=== PATIENT | female | born 1940 | race Caucasian/White ===

== ENCOUNTER 2017-05-08 06:19 | Day surgery (SDC) | payer MEDICARE, BC ==
[2017-05-04 16:16] VITALS: BMI 26.7
[~2017-05-08 06:19] MED LIST: DEXAMETHASONE SOD PHOSPHATE 10 MG/ML 1 ML VIAL IV ONE; HEPARIN SODIUM,PORCINE 5,000 UNIT/ML 1 ML VIAL SQ ONE; LACTATED RINGERS 1,000 ML IV SCH; MIDAZOLAM 2 MG/2 ML VIAL IV PRN; MORPHINE SULFATE 4 MG/ML SYRINGE IV PRN; ONDANSETRON 4 MG/2 ML VIAL IVP ONE
[2017-05-08] MEDS ORDERED: INDOCYANINE GREEN 25 MG VIAL IV STA (06:33)
[2017-05-08 07:18] LABS: Basophils % (A) 0 %; Eosinophils # (A) 0.2 k/uL (0-0.7); Eosinophils % (A) 2 %; HGB 13.6 gm/dL (11.4-16.0); Lymphocytes % (A) 24 %; MCH 29.4 pg (25.0-35.0); MCHC 31.5 g/dL (31.0-37.0); MCV 93.2 fL (80.0-100.0); Mean Platelet Volume 7.4; Monocytes # (A) 0.5 k/uL (0-1.0); Monocytes % (A) 5 %; Neutrophils # (A) 5.7 k/uL (1.3-7.7); Neutrophils % (A) 68 %; Platelet Count 341 k/uL (150-450); RBC 4.62 m/uL (3.80-5.40); RDW 12.3 % (11.5-15.5); WBC 8.4 k/uL (3.8-10.6)
[2017-05-08 07:31] LABS: ALT 17 U/L (9-52); AST 15 U/L (14-36); Alkaline Phosphatase 92 U/L (38-126); Anion Gap 10 mmol/L; Blood Urea Nitrogen 10 mg/dL (7-17); Calcium 9.8 mg/dL (8.4-10.2); Carbon Dioxide 25 mmol/L (22-30); Chloride 108 mmol/L (98-107); Glucose 96 mg/dL (74-99); Potassium 4.6 mmol/L (3.5-5.1); Sodium 143 mmol/L (137-145); Total Bilirubin 0.4 mg/dL (0.2-1.3); Total Protein 6.8 g/dL (6.3-8.2)
--- NOTE | 2017-05-08 07:32 | P.GSHP ---
History of Present Illness H&P Date: 05/08/17 CHIEF COMPLAINT: Cholecystitis HISTORY OF PRESENT ILLNESS: The patient is a 77-year-old female who presents with history of epigastric including right upper quadrant abdominal pain. She underwent diagnostic studies for her gallbladder. Separately her clinical picture was consistent with cholecystitis. Now she presents for surgical intervention. PAST MEDICAL HISTORY: Please see list PAST SURGICAL HISTORY: Please see list MEDICATIONS: Please see list ALLERGIES: Denies. SOCIAL HISTORY: No illicit drug use or recent tobacco use FAMILY HISTORY: Pertinent for gallbladder disease REVIEW OF ORGAN SYSTEMS: CONSTITUTIONAL: No reports of fevers or chills. HEENT: Denies any troubles with the vision or hearing. PHYSICAL EXAM: VITAL SIGNS: Afebrile vital signs stable GENERAL: Well-developed pleasant in no acute distress. HEENT: No scleral icterus. Extraocular movements grossly intact. Moist buccal mucosa. NECK: Supple without lymphadenopathy. CHEST: Unlabored respirations. Equal bilateral excursions. CARDIOVASCULAR: Regular rate regular rhythm rhythm. Distal 2+ pulses. ABDOMEN: Soft, nondistended. Tender along the epigastrium and right upper quadrant. MUSCULOSKELETAL: No clubbing, cyanosis, or edema. NEURO: Cranial nerves II to XII within normal limits. No focal or lateralizing signs. PSYCH: Alert and oriented to person, place and time. ASSESSMENT: 1. Epigastric and right upper quadrant abdominal pain 2. Chronic cholecystitis 3. Symptomatic gallstones. PLAN: 1. Will need a robotic laparoscopic cholecystectomy possible open. Benefits and risks were described. 2. Heparin for DVT prophylaxis 5000 units. 3. Antibiotic prophylaxis. Past Medical History Past Medical History: Hypertension History of Any Multi-Drug Resistant Organisms: None Reported Past Surgical History: Hysterectomy, Orthopedic Surgery Additional Past Surgical History / Comment(s): knee arthroscopy; ovarian cyst removed; bilat. big toenails removed Past Anesthesia/Blood Transfusion Reactions: No Reported Reaction Smoking Status: Current every day smoker - Past Family History Sister(s) Family Medical History: Cancer Additional Family Medical History / Comment(s): breast Medications and Allergies Home Medications Medication Instructions Recorded Confirmed Type Calcium Carbonate [Calcium] 600 mg PO DAILY 05/04/17 05/04/17 History Cetirizine HCl [Zyrtec ODT] 10 mg PO DAILY PRN 05/04/17 05/04/17 History Cholecalciferol (Vitamin D3) 2,000 unit PO DAILY 05/04/17 05/04/17 History [Vitamin D3] Cyanocobalamin (Vitamin B-12) 2,000 mcg PO DAILY 05/04/17 05/04/17 History [Vitamin B-12] Lisinopril [Zestril] 5 mg PO DAILY 05/04/17 05/04/17 History Multivitamins, Thera [Multivitamin 1 tab PO DAILY 05/04/17 05/04/17 History (formulary)] Albuterol Nebulized [Ventolin 2.5 mg INHALATION Q6H PRN 05/05/17 05/05/17 History Nebulized] Allergies Allergy/AdvReac Type Severity Reaction Status Date / Time amoxicillin Allergy thrush Verified 05/04/17 16:02 Penicillins Allergy redness Verified 05/04/17 16:08 Results - Labs 05/08/17 06:40
[2017-05-08] MEDS ORDERED: fentaNYL (PF) 50 MCG/ML 2 ML AMP ONE (07:36)
[2017-05-08] MEDS ORDERED: KETOROLAC 30 MG/ML 1 ML VIAL ONE (07:36)
[2017-05-08] MEDS ORDERED: NEOSTIGMINE 1 MG/ML 10 ML VIAL ONE (07:36)
[2017-05-08] MEDS ORDERED: LIDOCAINE 1% INJ 10MG/ML (20 ML MDV) ONE (07:36)
[2017-05-08] MEDS ORDERED: MIDAZOLAM 2 MG/2 ML VIAL ONE (07:36)
[2017-05-08] MEDS ORDERED: GLYCOPYRROLATE 0.2 MG/ML 2 ML VIAL ONE (07:36)
[2017-05-08] MEDS ORDERED: ROCURONIUM BROMIDE 10 MG/ML 10 ML VIAL IV ONE (07:36)
[2017-05-08] MEDS ORDERED: PROPOFOL 10 MG/ML 20 ML VIAL IV ONE (07:36)
[2017-05-08] MEDS ORDERED: PHENYLEPHRINE-0.9% NACL SYG 1 MG/10 ML SYRINGE ONE (07:36)
[2017-05-08] MEDS ORDERED: SUCCINYLCHOLINE CHLORIDE 100 MG/5 ML SYR IV ONE (07:36)
[2017-05-08] MEDS: ceFAZolin IN SWFI 2 GM/20 ML SYRINGE IVP ONE ×2 (07:40→08:11)
[2017-05-08] MEDS ORDERED: BUPIVACAINE (PF) 0.5% 30 ML VIAL SQ ONE ×2 (08:10→08:53)
[2017-05-08] MEDS ORDERED: LACTATED RINGERS 1,000 ML IV ONE ×2 (08:38→13:19)
--- NOTE | 2017-05-08 09:24 | P.PN ---
Subjective Progress Note Date: 05/08/17 SURGEON: VICKI COELLO MD INDUSTRIAL EDUCATION TEACHER: 1. Matilde Clements 2. Maria Isabel Borges PREOPERATIVE DIAGNOSES: 1. Gallstones pancreatitis. 2. COPD. 3. Epigastric abdominal pain. 4. Gastroesophageal reflux disease. 5. Tobacco abuse. 6. Essential hypertension. POSTOPERATIVE DIAGNOSES: 1. Gallstones pancreatitis. 2. COPD. 3. Epigastric abdominal pain. 4. Gastroesophageal reflux disease. 5. Tobacco abuse. 6. Essential hypertension. 7. Peritoneal adhesions small bowel to the abdominal wall lower pelvis from previous abdominal surgery. OPERATION: Robotic-assisted laparoscopic cholecystectomy, multiport ESTIMATED BLOOD LOSS: 2 mL. SPECIMENS REMOVED: Gallbladder. COMPLICATIONS: None. OPERATIVE FINDINGS: 1. Chronic cholecystitis. 2. Moderate peritoneal adhesions small bowel to the abdominal wall from previous open abdominal surgery. INDICATIONS: The patient is a 77-year-old female who presents with gallstone pancreatitis, symptomatic gallstones and chronic cholelcystitis. Surgical intervention with a laparoscopic cholecystectomy was described at length including injury to the biliary tree, bleeding, infection, need for further surgery. Informed consent was obtained. Robotic assisted laparoscopic approach was described. Benefits and risks of the procedure including but not limited to bleeding, infection, injury to the biliary tree was described. Informed consent was obtained. DESCRIPTION OF PROCEDURE: Patient was brought to the operating room, placed in supine position. After general induction, the abdomen had been prepped and draped in standard sterile fashion. The robotic da Laan SI system was primed. After a timeout protocol was performed, the patient had been prepped and draped in standard sterile fashion. The robot was docked along the right lateral abdomen. The patient was repositioned in reverse Trendelenburg position. Please note prior to docking of the robot; however, a 5 mm 0 degrees laparoscopic trocar entry was performed along the left upper quadrant. Next, two 8 mm robotic ports were placed along the right upper abdomen. The camera 12-mm port was maintained along the epigastrium. Another 8 mm port was placed along the left upper abdominal wall after exchanging the 5 mm port. Please note that the ports were placed at least 10 to 15 cm away from the target anatomy of the gallbladder. Using a grasper for arm 3, a grasper for arm 2, including hook cautery for arm 1 , the robotic system was docked and primed as described. Instruments were interchanged by the assistant principal including hook cautery, Bovie cautery scissors and clip appliers. I had sat at the console. Adhesions were identified along the infundibulum of the gallbladder and addressed using hook cautery. The gallbladder fundus was retracted over the dome of the liver. Initial attention was brought to the infundibulum which was gently retracted in the inferior lateral approach. Using a grasper, the cystic duct including the cystic artery was carefully skeletonized. Using a PLASTIC clip bakeshop cleaner, 2 large clips were placed proximally, and 1 clip was placed distally along the cystic duct and then cauterized with the cautery. Again care was taken to avoid any injury to the biliary tree as the common bile duct was clearly visualized during this portion of dissection. Next, the cystic artery was cauterized. Electro-Bovie cautery was used to remove the gallbladder from the hepatic fossa without decompression of the gallbladder. Hemostasis was checked and found to be adequate. The robot was undocked. I re-scrubbed into the case. Using a 10 mm Endo Catch bag via the left upper quadrant, the specimen was removed from the abdominal cavity. The fascial defects were less than 8 mm in size. All pneumoperitoneum instruments were evacuated from the abdominal cavity. The incisions were reapproximated using 4-0 Monocryl in an interrupted subcuticular fashion. Please note along the trocar sites, local anesthetic was placed as a field block prior to insertion of all instruments. Dilute hydrogen peroxide was used to wash the skin. Dermabond was applied to the skin. At the end of the procedure needle, sponge, and instrument count had been verified correct by the automation engineering technician. The patient was transferred to postanesthesia care unit in stable condition. Intraoperative films were shared with the patient's family who were very pleased with the level of care. Objective - Vital Signs Vital signs: Vital Signs Temp 98.3 F 05/08/17 06:55 Pulse 90 05/08/17 06:55 Resp 18 05/08/17 06:55 BP 103/63 05/08/17 06:55 Pulse Ox 94 L 05/08/17 06:55 Intake & Output 05/07/17 05/08/17 05/08/17 18:59 06:59 18:59 Intake Total 1500 Output Total 2 Balance 1498 Intake: IV 1500 Output: Estimated Blood Loss 2 - Labs CBC & Chem 7: 05/08/17 06:40 05/08/17 06:40 Labs: Abnormal Lab Results - Last 24 Hours (Table) 05/08/17 Range/Units 06:40 Chloride 108 H (98-107) mmol/L
[2017-05-08 09:28] VITALS: TEMP 97.7
[2017-05-08 09:32] VITALS: RESP 16
--- NOTE | 2017-05-08 09:32 | P.OP ---
Date of Procedure: 05/08/17 Description of Procedure: SURGEON: VICKI MATA MD ACUPUNCTURE PHYSICIAN: 1. Matilde Clements 2. Maria Isabel Borges PREOPERATIVE DIAGNOSES: 1. Gallstones pancreatitis. 2. COPD. 3. Epigastric abdominal pain. 4. Gastroesophageal reflux disease. 5. Tobacco abuse. 6. Essential hypertension. POSTOPERATIVE DIAGNOSES: 1. Gallstones pancreatitis. 2. COPD. 3. Epigastric abdominal pain. 4. Gastroesophageal reflux disease. 5. Tobacco abuse. 6. Essential hypertension. 7. Peritoneal adhesions small bowel to the abdominal wall lower pelvis from previous abdominal surgery. OPERATION: Robotic-assisted laparoscopic cholecystectomy, multiport ESTIMATED BLOOD LOSS: 2 mL. SPECIMENS REMOVED: Gallbladder. COMPLICATIONS: None. OPERATIVE FINDINGS: 1. Chronic cholecystitis. 2. Moderate peritoneal adhesions small bowel to the abdominal wall from previous open abdominal surgery. INDICATIONS: The patient is a 77-year-old female who presents with gallstone pancreatitis, symptomatic gallstones and chronic cholelcystitis. Surgical intervention with a laparoscopic cholecystectomy was described at length including injury to the biliary tree, bleeding, infection, need for further surgery. Informed consent was obtained. Robotic assisted laparoscopic approach was described. Benefits and risks of the procedure including but not limited to bleeding, infection, injury to the biliary tree was described. Informed consent was obtained. DESCRIPTION OF PROCEDURE: Patient was brought to the operating room, placed in supine position. After general induction, the abdomen had been prepped and draped in standard sterile fashion. The robotic da Alan SI system was primed. After a timeout protocol was performed, the patient had been prepped and draped in standard sterile fashion. The robot was docked along the right lateral abdomen. The patient was repositioned in reverse Trendelenburg position. Please note prior to docking of the robot; however, a 5 mm 0 degrees laparoscopic trocar entry was performed along the left upper quadrant. Next, two 8 mm robotic ports were placed along the right upper abdomen. The camera 12-mm port was maintained along the epigastrium. Another 8 mm port was placed along the left upper abdominal wall after exchanging the 5 mm port. Please note that the ports were placed at least 10 to 15 cm away from the target anatomy of the gallbladder. Using a grasper for arm 3, a grasper for arm 2, including hook cautery for arm 1 , the robotic system was docked and primed as described. Instruments were interchanged by the clinical nursing assistant including hook cautery, Bovie cautery scissors and clip appliers. I had sat at the console. Adhesions were identified along the infundibulum of the gallbladder and addressed using hook cautery. The gallbladder fundus was retracted over the dome of the liver. Initial attention was brought to the infundibulum which was gently retracted in the inferior lateral approach. Using a grasper, the cystic duct including the cystic artery was carefully skeletonized. Using a PLASTIC clip assignment agent, 2 large clips were placed proximally, and 1 clip was placed distally along the cystic duct and then cauterized with the cautery. Again care was taken to avoid any injury to the biliary tree as the common bile duct was clearly visualized during this portion of dissection. Next, the cystic artery was cauterized. Electro-Bovie cautery was used to remove the gallbladder from the hepatic fossa without decompression of the gallbladder. Hemostasis was checked and found to be adequate. The robot was undocked. I re-scrubbed into the case. Using a 10 mm Endo Catch bag via the left upper quadrant, the specimen was removed from the abdominal cavity. The fascial defects were less than 8 mm in size. All pneumoperitoneum instruments were evacuated from the abdominal cavity. The incisions were reapproximated using 4-0 Monocryl in an interrupted subcuticular fashion. Please note along the trocar sites, local anesthetic was placed as a field block prior to insertion of all instruments. Dilute hydrogen peroxide was used to wash the skin. Dermabond was applied to the skin. At the end of the procedure needle, sponge, and instrument count had been verified correct by the digital technician. The patient was transferred to postanesthesia care unit in stable condition. Intraoperative films were shared with the patient's family who were very pleased with the level of care. Plan - Discharge Summary Discharge Rx Participant: Yes New Discharge Prescriptions: New Ibuprofen [Motrin] 600 mg PO Q8HR PRN #30 tab PRN Reason: Pain HYDROcodone/APAP 5-325MG [[place] 5-325] 1 tab PO Q6HR PRN #15 tab PRN Reason: Pain Continue Multivitamins, Thera [Multivitamin (formulary)] 1 tab PO DAILY Lisinopril [Zestril] 5 mg PO DAILY Cyanocobalamin (Vitamin B-12) [Vitamin B-12] 2,000 mcg PO DAILY Cholecalciferol (Vitamin D3) [Vitamin D3] 2,000 unit PO DAILY Cetirizine HCl [Zyrtec ODT] 10 mg PO DAILY PRN PRN Reason: Allergy Symptoms Calcium Carbonate [Calcium] 600 mg PO DAILY Albuterol Nebulized [Ventolin Nebulized] 2.5 mg INHALATION Q6H PRN PRN Reason: Shortness Of Breath Discharge Medication List Calcium Carbonate [Calcium] 600 mg PO DAILY 05/04/17 [History] Cetirizine HCl [Zyrtec ODT] 10 mg PO DAILY PRN 05/04/17 [History] Cholecalciferol (Vitamin D3) [Vitamin D3] 2,000 unit PO DAILY 05/04/17 [History] Cyanocobalamin (Vitamin B-12) [Vitamin B-12] 2,000 mcg PO DAILY 05/04/17 [ History] Lisinopril [Zestril] 5 mg PO DAILY 05/04/17 [History] Multivitamins, Thera [Multivitamin (formulary)] 1 tab PO DAILY 05/04/17 [History ] Albuterol Nebulized [Ventolin Nebulized] 2.5 mg INHALATION Q6H PRN 05/05/17 [ History] HYDROcodone/APAP 5-325MG [[place] 5-325] 1 tab PO Q6HR PRN #15 tab 05/08/17 [Rx] Ibuprofen [Motrin] 600 mg PO Q8HR PRN #30 tab 05/08/17 [Rx] Follow up Appointment(s)/Referral(s): Vicki Mata MD [STAFF PHYSICIAN] - 05/12/17 ([facility]) Patient Instructions/Handouts: Laparoscopic Cholecystectomy (DC) Activity/Diet/Wound Care/Special Instructions: Low fat diet. No lifting over 4 pounds in 1 week. May shower. No bathtub soaks. Discharge Disposition: HOME SELF-CARE
[2017-05-08 14:13] VITALS: BP 154/83; PULSE 75
== END 2017-05-08 14:33 | disposition home or self-care (01) ==
LOC: OR 06:19
PROVIDERS: ATTEND Surgery Plastic and Reconstructive Surgery
DX: K80.10 Calculus of gallbladder with chronic cholecystitis without obstruction (principal); K66.0 Peritoneal adhesions (postprocedural) (postinfection); K85.10 Biliary acute pancreatitis without necrosis or infection; J44.9 Chronic obstructive pulmonary disease, unspecified; K21.9 Gastro-esophageal reflux disease without esophagitis; I10 Essential (primary) hypertension; F17.200 Nicotine dependence, unspecified, uncomplicated; Z79.899 Other long term (current) drug therapy; Z88.0 Allergy status to penicillin
CPT/HCPCS: 47562; 86900; 86901; 88304; 80053; 85025; 86850; J2250; J1644; J1100; J2710; J2405; J2001; J3010; J1885; J2370; J0330; J2704; J0690

== ENCOUNTER → 2017-07-31 | Outpatient (CLI) | payer MEDICARE, BC | END | disposition home or self-care (01) | LOC: LABWHC1 09:00 | PROVIDERS: ATTEND Anesthesiology | DX: Z01.812 Encounter for preprocedural laboratory examination (principal) | CPT/HCPCS: 36415; 86850; 86900; 86901 ==

== ENCOUNTER → 2017-08-07 | Day surgery (SDC) | payer MEDICARE, BC ==
[2017-07-29 13:05] VITALS: BMI 25.9
[~2017-08-07] MED LIST changes: +ETOMIDATE 2 MG/ML 10 ML VIAL ONE; +GLYCOPYRROLATE 0.2 MG/ML 2 ML VIAL ONE; +HYDROcodone/APAP 5-325MG 1 EACH TAB PO ONE; +LACTATED RINGERS 1,000 ML IV ONE; +LIDOCAINE 1% 20 ML VIAL (10MG/ML) FOR IV START INTRADERMA ONE; +LIDOCAINE 1% INJ 10MG/ML (20 ML MDV) ONE; +METOCLOPRAMIDE 5 MG/ML 2 ML VIAL IVP ONE; -MORPHINE SULFATE 4 MG/ML SYRINGE IV PRN; +NEOSTIGMINE 1 MG/ML 10 ML VIAL ONE; +ROCURONIUM BROMIDE 10 MG/ML 10 ML VIAL IV ONE; +ROPIVACAINE 5 MG/ML 30 ML VIAL MISCELLANE ONE; +ROPIVACAINE 5 MG/ML 30 ML VIAL ONE; +SUCCINYLCHOLINE CHLORIDE 100 MG/5 ML SYR IV ONE; +ceFAZolin IN SWFI 2 GM/20 ML SYRINGE IVP ONE; +ePHEDrine SULFATE/0.9% NACL/PF 50 MG/5 ML SYRINGE IV ONE
--- NOTE | 2017-08-07 07:03 | P.GSHP ---
History of Present Illness H&P Date: 08/07/17 CHIEF COMPLAINT: Incisional hernia. HISTORY OF PRESENT ILLNESS: The patient is a 77-year-old female who presents with a history of swelling along the lower abdomen. Findings were consistent with incisional hernia is found on computed tomography scan. Now she presents for further evaluation and management. PAST MEDICAL HISTORY: Please see list. PAST SURGICAL HISTORY: Please see list. MEDICATIONS: Please see list. ALLERGIES: Please see list. SOCIAL HISTORY: No illicit drug use FAMILY HISTORY: No reports of Crohn disease or ulcerative colitis. REVIEW OF ORGAN SYSTEMS: CONSTITUTIONAL: No reports of fevers or chills. PHYSICAL EXAM: VITAL SIGNS: Stable GENERAL: Well-developed pleasant female in no acute distress. HEENT: No scleral icterus. Extraocular movements grossly intact. Moist buccal mucosa. NECK: Supple without lymphadenopathy. CHEST: Unlabored respirations. Equal bilateral excursions. CARDIOVASCULAR: Regular rate and rhythm. Distal 2+ pulses. ABDOMEN: Soft, nondistended. Palpable defect along the right abdomen lateral to the umbilicus. MUSCULOSKELETAL: No clubbing, cyanosis, or edema. ASSESSMENT: 1. Incisional ventral hernia. 2. COPD PLAN: 1. Recommend proceeding with robotic ventral hernia repair with mesh. 2. Benefits and risks of surgical intervention was discussed including possibility of open technique. 3. DVT prophylaxis. 4. Antibiotic prophylaxis. 5. Recommend abdominal wall block Past Medical History Past Medical History: COPD, Hypertension, Osteoarthritis (OA) History of Any Multi-Drug Resistant Organisms: None Reported Past Surgical History: Cholecystectomy, Hysterectomy, Orthopedic Surgery Additional Past Surgical History / Comment(s): knee arthroscopy; ovarian cyst removed; bilat. big toenails removed Past Anesthesia/Blood Transfusion Reactions: No Reported Reaction Smoking Status: Current every day smoker - Past Family History Sister(s) Family Medical History: Cancer Additional Family Medical History / Comment(s): breast Medications and Allergies Home Medications Medication Instructions Recorded Confirmed Type Calcium Carbonate [Calcium] 600 mg PO DAILY 05/04/17 08/07/17 History Cetirizine HCl [Zyrtec ODT] 10 mg PO DAILY PRN 05/04/17 08/07/17 History Cholecalciferol (Vitamin D3) 2,000 unit PO DAILY 05/04/17 08/07/17 History [Vitamin D3] Cyanocobalamin (Vitamin B-12) 2,000 mcg PO DAILY 05/04/17 08/07/17 History [Vitamin B-12] Lisinopril [Zestril] 5 mg PO DAILY 05/04/17 08/07/17 History Multivitamins, Thera [Multivitamin 1 tab PO DAILY 05/04/17 08/07/17 History (formulary)] Albuterol Nebulized [Ventolin 2.5 mg INHALATION Q6H PRN 05/05/17 08/07/17 History Nebulized] Polyethylene Glycol 3350 [Miralax] 17 gm PO DAILY PRN 07/29/17 08/07/17 History Allergies Allergy/AdvReac Type Severity Reaction Status Date / Time amoxicillin Allergy thrush Verified 08/07/17 06:13 Penicillins Allergy redness Verified 08/07/17 06:13 Surgical - Exam Vital Signs Temp Pulse Resp BP Pulse Ox 97 F L 93 16 100/57 94 L 08/07/17 06:30 08/07/17 06:30 08/07/17 06:30 08/07/17 06:30 08/07/17 06:30
[2017-08-07] MEDS: fentaNYL (PF) 50 MCG/ML 2 ML AMP IV PRN ×4 (07:10→11:01)
--- NOTE | 2017-08-07 07:44 | P.ONQ ---
Anesthesiology Proc Note - PNB - Peripheral Nerve Block Performed Left Transversus Abdominis Single Time Out Performed: Yes Procedure Start Time: :07 Procedure Stop Time: :12 Indication: Analgesia, Requested by physician Specifically requested for management of pain by DrAlex: Nishi Mata Sedation Type: Sedate with meaningful contact maintained Preparation: Sterile Prep Position: Supine Needle Types: Other (see comment) Needle Size: 100mm (4") (PUJUNK) Needle Gauge: 20 Technique: Ultrasound Injectate: 0.5% Ropivacaine (see comment for volume) (15 ml) Blood Aspirated: No Pain Paresthesia on Injection Noted: No Events: Uneventful and Well Tolerated
--- NOTE | 2017-08-07 07:46 | P.ONQ ---
Anesthesiology Proc Note - PNB - Peripheral Nerve Block Performed Right Transversus Abdominis Single Time Out Performed: Yes Procedure Start Time: 07:12 Procedure Stop Time: 07:15 Indication: Analgesia Specifically requested for management of pain by DrAlex: Nishi Mata Sedation Type: Sedate with meaningful contact maintained Preparation: Sterile Prep Position: Supine Needle Types: Other (see comment) Needle Size: 100mm (4") Needle Gauge: 20 Technique: Ultrasound (PUJUNK) Injectate: 0.5% Ropivacaine (see comment for volume) (15 ml) Blood Aspirated: No Pain Paresthesia on Injection Noted: No Resistance on Injection: Normal Events: Uneventful and Well Tolerated
--- NOTE | 2017-08-07 10:22 | P.PCN ---
Date of Procedure: 08/07/17 Preoperative Diagnosis: Incarcerated incisional hernia Postoperative Diagnosis: Incarcerated incisional hernia 10 x 10 cm left mid abdomen, severe intra- abdominal adhesions with intraloop adhesions, small bowel to abdominal wall Procedure(s) Performed: Robotic-assisted extensive lysis of adhesions over 1.5 hours, robotic-assisted incarcerated incisional ventral hernia repair with 11.[address] mesh Anesthesia: GETA, local Surgeon: Nishi Mata Manager Re[facility] #1: James Hemphill Estimated Blood Loss (ml): 5 Pathology: none sent Condition: stable Disposition: same day Operative Findings: 1. Severe intra-abdominal adhesions including intraloop adhesions and abdominal wall adhesions addressed over 1.5 hours robotic-assisted lysis of adhesions 2. No enterotomies throughout the case. 3. Incarcerated incisional hernia involving small bowel loop reduced without injury 4. Defect of 10 x 10 cm left lower abdomen to mid abdomen 5. Defect reduced with pursestring suture down to 5 cm 6. Mesh placement performed 7. Console time 121 minutes
[2017-08-07 10:38] VITALS: TEMP 98.2
[2017-08-07 13:11] VITALS: RESP 18
[2017-08-07 13:36] VITALS: BP 100/65; PULSE 68
== END | disposition home or self-care (01) ==
LOC: OR 05:46
PROVIDERS: ATTEND Surgery Plastic and Reconstructive Surgery
DX: K43.0 Incisional hernia with obstruction, without gangrene (principal); K66.0 Peritoneal adhesions (postprocedural) (postinfection); J44.9 Chronic obstructive pulmonary disease, unspecified; I10 Essential (primary) hypertension; M19.90 Unspecified osteoarthritis, unspecified site; F41.9 Anxiety disorder, unspecified; F32.9 Major depressive disorder, single episode, unspecified; Z79.899 Other long term (current) drug therapy; Z88.0 Allergy status to penicillin; Z88.1 Allergy status to other antibiotic agents; F17.210 Nicotine dependence, cigarettes, uncomplicated
CPT/HCPCS: 49655; 64486; C1781; J2250; J1644; J1100; J2710; J2765; J2405; J2001; J3010; J2795; J0330; J0690; 36415; 86850; 86900; 86901

== ENCOUNTER 2017-11-19 01:08 | Inpatient (IN) | payer MEDICARE, BC ==
[2017-11-19] MEDS ORDERED: NALOXONE 0.4 MG/ML 1 ML VIAL IV PRN (03:12)
[2017-11-19] MEDS ORDERED: ACETAMINOPHEN TAB 325 MG TAB PO PRN (03:12)
[2017-11-19] MEDS ORDERED: ONDANSETRON 4 MG/2 ML VIAL IVP PRN (03:12)
[2017-11-19] MEDS: SODIUM CHLORIDE 0.9% 1,000 ML IV SCH ×3 (03:19→17:56)
--- NOTE | 2017-11-19 03:33 | ED ---
Abdominal Pain HPI - General Chief Complaint: Abdominal Pain Stated Complaint: Abd pain Time Seen by Provider: 11/19/17 02:02 Source: EMS Mode of arrival: EMS Limitations: no limitations - Related Data Home Medications Medication Instructions Recorded Confirmed Calcium Carbonate [Calcium] 600 mg PO DAILY 05/04/17 08/07/17 Cetirizine HCl [Zyrtec ODT] 10 mg PO DAILY PRN 05/04/17 08/07/17 Cholecalciferol (Vitamin D3) 2,000 unit PO DAILY 05/04/17 08/07/17 [Vitamin D3] Cyanocobalamin (Vitamin B-12) 2,000 mcg PO DAILY 05/04/17 08/07/17 [Vitamin B-12] Lisinopril [Zestril] 5 mg PO DAILY 05/04/17 08/07/17 Multivitamins, Thera [Multivitamin 1 tab PO DAILY 05/04/17 08/07/17 (formulary)] Albuterol Nebulized [Ventolin 2.5 mg INHALATION Q6H PRN 05/05/17 08/07/17 Nebulized] Polyethylene Glycol 3350 [Miralax] 17 gm PO DAILY PRN 07/29/17 08/07/17 Previous Rx's Medication Instructions Recorded HYDROcodone/APAP 5-325MG [[place] 1 tab PO Q4HR PRN 3 Days #18 tab 08/07/17 5-325] Allergies Allergy/AdvReac Type Severity Reaction Status Date / Time amoxicillin Allergy thrush Verified 11/19/17 01:19 azithromycin Allergy Unknown Verified 11/19/17 01:19 [From Zithromax Z-Vadim] Penicillins Allergy redness Verified 11/19/17 01:19 Review of Systems ROS Statement: Those systems with pertinent positive or pertinent negative responses have been documented in the HPI. ROS Other: All systems not noted in ROS Statement are negative. Past Medical History Past Medical History: COPD, Hypertension, Osteoarthritis (OA) History of Any Multi-Drug Resistant Organisms: None Reported Past Surgical History: Cholecystectomy, Hysterectomy, Orthopedic Surgery Additional Past Surgical History / Comment(s): knee arthroscopy; ovarian cyst removed; bilat. big toenails removed Past Anesthesia/Blood Transfusion Reactions: No Reported Reaction Past Psychological History: Anxiety, Depression Smoking Status: Current every day smoker Past Alcohol Use History: None Reported Past Drug Use History: None Reported - Past Family History Sister(s) Family Medical History: Cancer Additional Family Medical History / Comment(s): breast General Exam Limitations: no limitations Course Vital Signs 11/19/17 01:12 Temperature 98.0 F Pulse Rate 94 Respiratory 18 Rate Blood Pressure 122/70 O2 Sat by Pulse 96 Oximetry Disposition Clinical Impression: Abdominal pain, Vomiting, Ileus Disposition: ADMITTED IP TO THIS [facility] Condition: Fair Referrals: Florin Angulo MD [Primary Care Provider] - 1-2 days
[2017-11-19] MEDS: LISINOPRIL 5 MG TAB PO SCH (13:21)
--- NOTE | 2017-11-19 13:29 | P.GSCN ---
History of Present Illness Consult date: 11/19/17 Reason for Consult: Abdominal pain History of present illness: 77-year-old female known to Dr. Mata service was transferred from [facility] to [facility] to be evaluated for abdominal pain with vomiting and abdominal bloating. Patient stated that she was in her usual state of health when yesterday morning she had a large bowel movement later that afternoon ate fish around 3:30 after eating the fish noted that she was bloated around 8:00 at night and vomited the bloating persist had 3 small hard stools. Abdomen became distended and firm. Became concerned when consult [facility] where a CAT scan of the abdomen pelvis was obtained. Reviewing the report indicated it showed partial mechanical distal small bowel obstruction with sigmoid diverticulosis no diverticulitis. There was also possible complex mass noted posterior on the left kidney. Patient stated that since being in the hospital the abdominal bloating has improved less distended currently sitting up in a chair taking a clear liquid diet states less abdominal pain no nausea no vomiting states had 3 small hard stools this morning white count 16 on admission AST and ALT not elevated total bili 0.3. Past surgical history May 08 2017 robotic-assisted laparoscopic cholecystectomy for gallstone pancreatitis. 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 Anxiety depressive disorder Review of Systems Essentially unremarkable except as mentioned in the present on Past Medical History Past Medical History: COPD, Hypertension, Osteoarthritis (OA) History of Any Multi-Drug Resistant Organisms: None Reported Past Surgical History: Cholecystectomy, Hysterectomy, Orthopedic Surgery Additional Past Surgical History / Comment(s): knee arthroscopy; ovarian cyst removed; bilat. big toenails removed Past Anesthesia/Blood Transfusion Reactions: No Reported Reaction Past Psychological History: Anxiety, Depression Additional Psychological History / Comment(s): no meds Smoking Status: Current every day smoker Past Alcohol Use History: None Reported Additional Past Alcohol Use History / Comment(s): has smoked over 1ppd for about 60 years Past Drug Use History: None Reported - Past Family History Sister(s) Family Medical History: Cancer Additional Family Medical History / Comment(s): breast Medications and Allergies Home Medications Medication Instructions Recorded Confirmed Type Calcium Carbonate [Calcium] 600 mg PO W/LUNCH 05/04/17 11/19/17 History Cholecalciferol (Vitamin D3) 2,000 unit PO W/LUNCH 05/04/17 11/19/17 History [Vitamin D3] Cyanocobalamin (Vitamin B-12) 2,000 mcg PO W/LUNCH 05/04/17 11/19/17 History [Vitamin B-12] Lisinopril [Zestril] 5 mg PO DAILY 05/04/17 11/19/17 History Multivitamins, Thera [Multivitamin 1 tab PO W/LUNCH 05/04/17 11/19/17 History (formulary)] Albuterol Nebulized [Ventolin 2.5 mg INHALATION RT-Q6H PRN 05/05/17 11/19/17 History Nebulized] Cetirizine HCl [Zyrtec] 10 mg PO DAILY 11/19/17 11/19/17 History Allergies Allergy/AdvReac Type Severity Reaction Status Date / Time azithromycin Allergy Rash/Hives Verified 11/19/17 07:55 [From Zithromax Z-Vadim] Penicillins Allergy Rash/Hives Verified 11/19/17 07:55 amoxicillin AdvReac thrush Verified 11/19/17 07:55 Surgical - Exam Vital Signs Temp Pulse Resp BP Pulse Ox 98.0 F 94 18 122/70 96 11/19/17 01:12 11/19/17 01:12 11/19/17 01:12 11/19/17 01:12 11/19/17 01:12 GENERAL APPEARANCE: 77-year-old female patient is alert, oriented, in no acute distress. Sitting up in a chair taking a clear liquid diet VITAL SIGNS: Reviewed HEENT: Head is normocephalic and atraumatic. Pupils are equal and reactive. The nares are patent. Oropharynx is clear without lesions. NECK: Supple without lymphadenopathy. Traches midline. HEART: S1, S2. Regular rate and rhythm. No murmur noted LUNGS: No crackles or wheezes are heard. Adequate air movement bilaterally ABDOMEN: Diffuse tenderness slightly distended with good bowel sounds. Reports less abdominal pain with less abdominal bloating 3 small hard stools this morning tolerating clear liquid diet with no nausea no vomiting No peritoneal signs. No palpable organomegaly or masses. EXTREMITIES: Normal skin color and turgor. No cyanosis, rash, ulceration, clubbing or edema. Radial pedal pulses are 2/4 bilaterally. NEUROLOGICAL: No focal deficits. Strength and sensation are grossly intact. Results Krystian labs reviewed sodium 135, potassium 4.7, chloride 100 CO2 24 creatinine 0.9 AST and ALT 19 alk phos 87 total bili 0.3 Assessment and Plan Assessment: Impression Present on admission abdominal pain bloating nausea vomiting suspect due to possible early partial mechanical distal small bowel obstruction CAT scan abdomen and pelvis obtained and report reviewed the report showed multiple dilated small bowel with fluid levels consistent with a partial mechanical distal small bowel obstruction or significant small bowel ileus not ruled out History of 08/07/2017 robotic-assisted extensive lysis of adhesions repair 10 x 10 cm an incarcerated incisional hernia with mesh History of robotic-assisted laparoscopic cholecystectomy done 05/08/2017 History of gallstone pink otitis Esophageal reflux disease Peritoneal adhesions small bowel to the abdominal wall pelvis from previous abdominal surgeries History of chronic constipation Plan continue with IV fluid for hydration Conservative management Abdominal x-ray follow up on results Bowel stimulant as ordered Anti-emetics as ordered home meds as appropriate clear liquid diet monitor the response no evidence of an acute surgical abdomen at this time will follow with you with further surgical recommendations pending clinical course DVT and GI prophylaxis Consultations surgical dictated for Dr. Mata The above impression and plan of care have been discussed and directed by signing physician. Noy Valenzuela nurse practitioner acting as scribe for signing physician.
--- NOTE | 2017-11-19 14:05 | XR ---
EXAMINATION TYPE: XR abdomen 2V DATE OF EXAM: 11/19/2017 CLINICAL DATA: 77-year-old female with ileus, abdominal pain and distention, PHH COMPARISON: Outside CT 11/18/2017 FINDINGS: Small bowel loops in the left abdomen dilated up to 4.3 cm. Air-fluid levels are present throughout. Some colonic gas is present extending distally into the rectum. Moderate degenerative change at the l eft hip. Air-fluid levels are noted throughout the abdomen. No evidence for free intraperitoneal air. IMPRESSION: 1. Dilated small bowel loops measuring up to 4.3 cm with multiple air-fluid levels. While obstruction is possible, the presence of colonic gas at this time makes generalized ileus a more likely consider ation. Close follow-up recommended. 2. No free air.
[2017-11-19] MEDS ORDERED: NICOTINE POLACRILEX 2 MG GUM BUCCAL PRN (17:10)
[2017-11-19] MEDS: ENOXAPARIN 40 MG/0.4 ML SYRINGE SQ SCH (17:57)
[2017-11-19] MEDS: NICOTINE 21MG/24HR PATCH TRANSDERM SCH (17:57)
[2017-11-19] MEDS: methylPREDNISolone SOD SUCCI 40 MG/ML 1 ML VIAL IV SCH (17:57)
[2017-11-19] MEDS: INSULIN ASPART 100 UNIT/ML 1 ML 10 ML VIAL SQ SCH (18:11)
--- NOTE | 2017-11-19 18:23 | HP ---
HISTORY AND PHYSICAL DATE OF ADMISSION: 11/19/17. DATE OF SERVICE: 11/19/17. PRESENT COMPLAINT: Abdominal pain. HISTORY OF PRESENTING COMPLAINT: A very pleasant 77-year-old patient who follows with Dr. Angulo. Chronic stable medical conditions include hypertension, osteoarthritis, hypertension and urinary incontinence. The patient yesterday had lunch and abdomen started getting bloated and then she vomited and felt better. After some time again she started vomiting. Abdominal pain started to increase. She vomited several times. Also had some bowel movements. The patient went to [facility] for which she was transferred here. CT scan did show bowel obstruction. Patient known to Dr. Mata, general surgery, who was consulted. The patient is currently n.p.o. The patient also long-standing smoker. Has a bit of cough. No short of breath, wheezing. The patient's daughter is present. Denies any fever and chills. Still having abdominal pain. Had a small bowel movement this morning. REVIEW OF SYSTEMS: CONSTITUTIONAL: Weak, tired, run down. HEENT: None. RESPIRATORY: As above. CARDIOVASCULAR: None. GASTROINTESTINAL: As above. GENITOURINARY: Incontinence. DERMATOLOGIC, HEMATOLOGIC, LYMPHATIC: None. PSYCHIATRY: None. NEUROLOGICAL: None. MUSCULOSKELETAL: Pains in many joints. PAST MEDICAL HISTORY: COPD, hypertension, osteoarthritis, urine incontinence. PAST SURGICAL HISTORY: Cholecystectomy, hysterectomy, knee arthroscopy, ovarian cyst removed, bilateral big toenail removed. PSYCH HISTORY: Anxiety, depression. SOCIAL HISTORY: The patient smoked a pack and a half a day for close to 60 years. Lives by herself. Drinks about 4-5 beers a day. FAMILY HISTORY: Breast cancer. HOME MEDICATIONS: 1. Multivitamin 1 tablet p.o. daily. 2. Zestril 5 mg p.o. daily. 3. Vitamin B12 2000 mcg with lunch. 4. Vitamin D3 2000 units p.o. with lunch. 5. Cetirizine 10 mg p.o. daily. 6. Calcium. 7. Ventolin 2.5 q.6h p.r.n. ALLERGIES: AZITHROMYCIN, PENICILLIN, AMOXICILLIN. EXAMINATION: Temperature 98.8, pulse 85, respiratory 18, blood pressure 120/74, pulse 93% on room air. GENERAL APPEARANCE: Average built, sitting up, tired appearing. EYES: Pupils equal. Conjunctivae normal. HEENT: External appearance of nose and ears. Oral cavity normal. NECK: JVD not raised. Mass not palpable. RESPIRATORY: Effort increased. LUNGS: Diminished breath sounds, prolonged expiration wheezing, mild crackles. CARDIOVASCULAR: First and second sounds, no edema. ABDOMEN: Distended, soft, tenderness. Bowel sounds are present. LYMPHATIC: No lymph node palpable in neck or axillae. PSYCHIATRY: Alert and oriented x3. Mood and affect normal. NEUROLOGICAL: Pupils equal. Cranial nerves grossly intact. Power and sensation grossly intact. MUSCULOSKELETAL: Evidence of osteoarthritis especially in the hands. INVESTIGATIONS: Blood work is there from [facility]. Abdominal x-ray from here and interpreted by me shows dilated small-bowel loops with multiple air-fluid levels. ASSESSMENT: 1. Acute small-bowel obstruction, slow to respond. 2. Acute chronic obstructive pulmonary disease exacerbation in a current smoker. 3. Chronic nicotine dependence, patient active cigarette smoker. 4. Essential hypertension. 5. Primary osteoarthritis. 6. Urinary stress incontinence. PLAN: Dr. Mata was consulted from General Surgery. The patient may need a NG tube. We will make the patient n.p.o. except for p.o. medications. We will start the patient on breathing treatments and inhaled steroids. Also follow Accu-Cheks. Lovenox for DVT prophylaxis. The patient is already on IV fluids. Care was discussed with the patient and the family at the bedside. Smoking cessation counseling was done with the patient at length including affecting his COPD. Nicotine patch will be given. More than 3 minutes was spent on this aspect of the case. MMODL / IJN: [id number] /
[2017-11-19 18:30] LABS: Glucose,Whole Blood 173 mg/dL (75-99)
[2017-11-19 20:52] LABS: Glucose,Whole Blood 118 mg/dL (75-99)
[2017-11-19] MEDS: IPRATROPIUM-ALBUTEROL 3 ML NEB INHALATION SCH (20:55)
[2017-11-19] MEDS: BUDESONIDE 1 MG/2 ML NEBU INHALATION SCH (20:55)
[2017-11-19] MEDS: FAMOTIDINE 20 MG/2 ML VIAL IV SCH (21:51)
[2017-11-20] MEDS: methylPREDNISolone SOD SUCCI 40 MG/ML 1 ML VIAL IV SCH ×3 (00:27→16:35)
[2017-11-20] MEDS ORDERED: IPRATROPIUM-ALBUTEROL 3 ML NEB INHALATION PRN (01:00)
[2017-11-20] MEDS: IPRATROPIUM-ALBUTEROL 3 ML NEB INHALATION SCH ×5 (01:02→20:20)
[2017-11-20] MEDS: SODIUM CHLORIDE 0.9% 1,000 ML IV SCH ×4 (05:44→23:44)
[2017-11-20 06:50] LABS: Glucose,Whole Blood 120 mg/dL (75-99)
[2017-11-20] MEDS: BUDESONIDE 1 MG/2 ML NEBU INHALATION SCH ×2 (07:32→20:20)
[2017-11-20] MEDS: INSULIN ASPART 100 UNIT/ML 1 ML 10 ML VIAL SQ SCH ×3 (07:47→17:22)
[2017-11-20 08:20] LABS: Basophils % (A) 0 %; Eosinophils % (A) 0 %; HCT 39.1 % (34.0-46.0); HGB 12.3 gm/dL (11.4-16.0); Lymphocytes # (A) 0.9 k/uL (1.0-4.8); Lymphocytes % (A) 10 %; MCH 28.7 pg (25.0-35.0); MCHC 31.5 g/dL (31.0-37.0); MCV 91.1 fL (80.0-100.0); Mean Platelet Volume 7.7; Monocytes # (A) 0.1 k/uL (0-1.0); Monocytes % (A) 2 %; Neutrophils # (A) 7.9 k/uL (1.3-7.7); Neutrophils % (A) 88 %; Platelet Count 312 k/uL (150-450); RBC 4.29 m/uL (3.80-5.40); RDW 13.5 % (11.5-15.5)
[2017-11-20] MEDS: FAMOTIDINE 20 MG/2 ML VIAL IV SCH (08:27)
[2017-11-20] MEDS: ENOXAPARIN 40 MG/0.4 ML SYRINGE SQ SCH (08:27)
[2017-11-20] MEDS: NICOTINE 21MG/24HR PATCH TRANSDERM SCH (08:27)
[2017-11-20] MEDS: LISINOPRIL 5 MG TAB PO SCH (08:27)
[2017-11-20 08:36] LABS: Anion Gap 6 mmol/L; Blood Urea Nitrogen 11 mg/dL (7-17); Calcium 9.1 mg/dL (8.4-10.2); Carbon Dioxide 25 mmol/L (22-30); Chloride 109 mmol/L (98-107); Glucose 107 mg/dL (74-99); Potassium 5.2 mmol/L (3.5-5.1); Sodium 140 mmol/L (137-145)
[2017-11-20 11:47] LABS: Glucose,Whole Blood 101 mg/dL (75-99)
--- NOTE | 2017-11-20 13:13 | P.PN ---
<Noy Valenzuela - Last Filed: 11/20/17 13:07> Subjective Progress Note Date: 11/20/17 77-year-old female seen just returned from having an abdominal x-ray done currently pending. Patient states less abdominal discomfort tolerating a clear diet passing gas no nausea no vomiting currently abdomen is softer with active bowel tones noted Patients being followed by surgical service at the request of the attending for possible partial mechanical small bowel obstruction Objective - Vital Signs Vital signs: Vital Signs Temp 97.8 F 11/20/17 07:00 Pulse 72 11/20/17 11:37 Resp 16 11/20/17 08:00 BP 113/77 11/20/17 07:00 Pulse Ox 92 L 11/20/17 07:00 Intake & Output 11/19/17 11/20/17 11/20/17 18:59 06:59 18:59 Intake Total 1000 600 Balance 1000 600 Intake: IV 1000 Sodium Chloride 0.9% 1, 1000 000 ml @ 125 mls/hr IV . Q8H [facility] Rx#:[id number] Oral 600 Other: Voiding Method Toilet # Voids 1 2 - Exam Physical exam 77-year-old female sitting up in bed does not appear in acute distress Lungs clear on room air no wheezing Heart S1-S2 audible regular Abdomen softer less tender bowel tones present, distended states less abdominal pain passing gas no stool no nausea no vomiting Extremities no edema - Labs CBC & Chem 7: 11/20/17 07:36 11/20/17 07:36 Labs: Abnormal Lab Results - Last 24 Hours (Table) 11/19/17 11/19/17 11/20/17 Range/Units 18:08 20:50 06:49 Neutrophils # (1.3-7.7) k/uL Lymphocytes # (1.0-4.8) k/uL Potassium (3.5-5.1) mmol/L Chloride (98-107) mmol/L Glucose (74-99) mg/dL POC Glucose (mg/dL) 173 H 118 H 120 H (75-99) mg/dL 11/20/17 11/20/17 11/20/17 Range/Units 07:36 07:36 11:44 Neutrophils # 7.9 H (1.3-7.7) k/uL Lymphocytes # 0.9 L (1.0-4.8) k/uL Potassium 5.2 H (3.5-5.1) mmol/L Chloride 109 H (98-107) mmol/L Glucose 107 H (74-99) mg/dL POC Glucose (mg/dL) 101 H (75-99) mg/dL Assessment and Plan Assessment: Impression Present on admission abdominal pain bloating nausea vomiting suspect due to possible early partial mechanical distal small bowel obstruction CAT scan abdomen and pelvis obtained and report reviewed the report showed multiple dilated small bowel with fluid levels consistent with a partial mechanical distal small bowel obstruction or significant small bowel ileus not ruled out History of 08/07/2017 robotic-assisted extensive lysis of adhesions repair 10 x 10 cm an incarcerated incisional hernia with mesh History of robotic-assisted laparoscopic cholecystectomy done 05/08/2017 History of gallstone pink otitis Esophageal reflux disease Peritoneal adhesions small bowel to the abdominal wall pelvis from previous abdominal surgeries History of chronic constipation Plan continue with IV fluid for hydration Conservative management Abdominal x-ray follow up on results Bowel stimulant as ordered Anti-emetics as ordered home meds as appropriate clear liquid diet monitor the response no evidence of an acute surgical abdomen at this time will follow with you with further surgical recommendations pending clinical course DVT and GI prophylaxisis The above impression and plan of care have been discussed and directed by signing physician. Noy Valenzuela nurse practitioner acting as scribe for signing physician. <Nishi Mata N - Last Filed: 11/20/17 13:25> Objective - Vital Signs Vital signs: Vital Signs Temp 97.8 F 11/20/17 07:00 Pulse 72 11/20/17 11:37 Resp 16 11/20/17 08:00 BP 113/77 11/20/17 07:00 Pulse Ox 92 L 11/20/17 07:00 Intake & Output 11/19/17 11/20/17 11/20/17 18:59 06:59 18:59 Intake Total 1000 600 Balance 1000 600 Intake: IV 1000 Sodium Chloride 0.9% 1, 1000 000 ml @ 125 mls/hr IV . Q8H [facility] Rx#:[id number] Oral 600 Other: Voiding Method Toilet # Voids 1 2 - Labs CBC & Chem 7: 11/20/17 07:36 11/20/17 07:36 Labs: Abnormal Lab Results - Last 24 Hours (Table) 0911/19/17 11/20/17 Range/Units 18:08 20:50 06:49 Neutrophils # (1.3-7.7) k/uL Lymphocytes # (1.0-4.8) k/uL Potassium (3.5-5.1) mmol/L Chloride (98-107) mmol/L Glucose (74-99) mg/dL POC Glucose (mg/dL) 173 H 118 H 120 H (75-99) mg/dL 11/20/17 11/20/17 11/20/17 Range/Units 07:36 07:36 11:44 Neutrophils # 7.9 H (1.3-7.7) k/uL Lymphocytes # 0.9 L (1.0-4.8) k/uL Potassium 5.2 H (3.5-5.1) mmol/L Chloride 109 H (98-107) mmol/L Glucose 107 H (74-99) mg/dL POC Glucose (mg/dL) 101 H (75-99) mg/dL
--- NOTE | 2017-11-20 13:20 | XR ---
EXAMINATION TYPE: XR abdomen 2V DATE OF EXAM: 11/20/2017 COMPARISON: 11/19/2017 INDICATION: Post bowel obstruction surgery, distended abdomen TECHNIQUE: Upright abdomen FINDINGS: Nonspecific bowel gas is present. Air is within the stomach and within the colon. Some nonspecific sm all bowel gas within the left midabdomen. This appears stable in distention from the comparison study . No suspicious air-fluid levels or differential air-fluid levels are evident. Psoas margins are normal. No organomegaly is present. Note is made of plate atelectasis at the right base IMPRESSION: 1. Continued prominence of small bowel loops containing air. Air is within the colon. Ileus is favore d over obstruction. Continued follow-up is recommended.
--- NOTE | 2017-11-20 13:26 | P.PN ---
Progress Note - Text Progress Note Date: 11/20/17 Patient seen and reevaluated. She had a large bowel movement. She is passing flatus. Patient diet may be advanced as tolerated. Patient stable from a surgical standpoint for discharge.
[2017-11-20 17:03] LABS: Glucose,Whole Blood 104 mg/dL (75-99)
[2017-11-20 21:16] LABS: Glucose,Whole Blood 99 mg/dL (75-99)
[2017-11-20] MEDS: FAMOTIDINE 20 MG TAB PO SCH (21:24)
[2017-11-20] MEDS: predniSONE 20 MG TAB PO SCH (21:46)
--- NOTE | 2017-11-20 22:10 | PN ---
PROGRESS NOTE DATE OF SERVICE: 11/20/2017. PRESENTING COMPLAINT: Abdominal pain. INTERVAL HISTORY: This patient presented with acute bowel obstruction which clinically improved, had a bowel movement today. Did tolerate clear liquids. Wheezing also better. The patient also treated for COPD exacerbation. Cough is improved. No sputum production. Slight abdominal pain is still present. REVIEW OF SYSTEMS: Done for constitutional, cardiovascular, GI, pulmonary; relevant findings as above. CURRENT MEDICATIONS: Reviewed that include: 1. DuoNeb. 2. IV Solu-Medrol. EXAMINATION: Temperature 98.3, pulse 90, respirations 18, blood pressure 110/68, pulse ox 95% on room air. GENERAL APPEARANCE: Sitting up, awake. EYES: Pupils equal. Conjunctivae normal. HEENT: External nose and ears normal. Oral cavity normal. NECK: JVD not raised. Mass not palpable. RESPIRATORY: Effort normal. LUNGS: Somewhat slightly improved air entry. Prolonged expiration. Decreased wheezing. CARDIOVASCULAR: First and second sounds normal. No edema. ABDOMEN: Soft, minimal tenderness. Bowel sounds present. PSYCHIATRY: Alert and oriented x3. Mood and affect were normal. INVESTIGATIONS: Potassium 5.2, BUN 11, creatinine 0.60. ASSESSMENT: 1. Acute small-bowel obstruction with clinical improvement. X-rays also improved. 2. Acute chronic obstructive pulmonary disease exacerbation in a current smoker, improving. 3. Chronic nicotine dependence. Patient is active cigarette smoker. 4. Essential hypertension. 5. Primary osteoarthritis. 6. Chronic urinary stress incontinence. PLAN: Care was discussed with the patient. Will cut back on the Solu-Medrol to p.o. prednisone. The patient is on clear liquid diet, is being advanced. Patient encouraged to ambulate. Again, smoking cessation was reinforced. MMODL / IJN: [id number] /
[2017-11-21 07:18] LABS: Glucose,Whole Blood 103 mg/dL (75-99)
[2017-11-21 07:58] LABS: Anion Gap 7 mmol/L; Blood Urea Nitrogen 10 mg/dL (7-17); Calcium 9.7 mg/dL (8.4-10.2); Carbon Dioxide 24 mmol/L (22-30); Chloride 109 mmol/L (98-107); Glucose 103 mg/dL (74-99); Sodium 140 mmol/L (137-145)
[2017-11-21 08:16] VITALS: TEMP 97.8
[2017-11-21] MEDS: NICOTINE 21MG/24HR PATCH TRANSDERM SCH (08:17)
[2017-11-21] MEDS: ENOXAPARIN 40 MG/0.4 ML SYRINGE SQ SCH ×2 (08:17→08:18)
[2017-11-21] MEDS: FAMOTIDINE 20 MG TAB PO SCH (08:17)
[2017-11-21] MEDS: INSULIN ASPART 100 UNIT/ML 1 ML 10 ML VIAL SQ SCH ×2 (08:17→12:15)
[2017-11-21] MEDS: predniSONE 20 MG TAB PO SCH (08:18)
[2017-11-21] MEDS: IPRATROPIUM-ALBUTEROL 3 ML NEB INHALATION SCH ×3 (08:22→15:30)
[2017-11-21] MEDS: BUDESONIDE 1 MG/2 ML NEBU INHALATION SCH (08:22)
--- NOTE | 2017-11-21 10:06 | P.PN ---
Progress Note - Text Progress Note Date: 11/21/17 The patient is a well. She's had several bowel movements. She is tolerating diet. On exam her vital signs are stable. Her abdomen soft. Resolving ileus. Patient was discharged home per medicine.
[2017-11-21 11:51] VITALS: PULSE 96
[2017-11-21 12:08] LABS: Glucose,Whole Blood 103 mg/dL (75-99)
[2017-11-21] MEDS: SODIUM CHLORIDE 0.9% 1,000 ML IV SCH (12:55)
[2017-11-21 15:23] VITALS: BP 143/85; RESP 18
--- NOTE | 2017-11-22 08:13 | DS ---
DISCHARGE SUMMARY DATE OF ADMISSION: 11/19/2017. DATE OF DISCHARGE: 11/21/2017. FINAL DIAGNOSES: 1. Acute small-bowel obstruction with nonoperative improvement. 2. Acute chronic obstructive pulmonary disease exacerbation in a current smoker. 3. Chronic nicotine dependence, patient is an active cigarette smoker. 4. Essential hypertension. 5. Primary osteoarthritis. 6. Chronic urinary stress incontinence. CONSULTATIONS: Dr. Mata from General Surgery. HOSPITAL COURSE: This patient presented with acute abdominal pain, nausea and vomiting. Found to have a bowel obstruction that finally did relieve spontaneously. Also had a COPD exacerbation, responded well to nebulized bronchodilators and steroids. The patient was counseled against smoking. Today doing much better. EXAMINATION: Temp 97.8, pulse 97, respirations 18, blood pressure 157/85, pulse 95 percent on room air. LUNGS: Improved air entry. ABDOMEN: Soft nontender. DISCHARGE MEDICATIONS: 1. Calcium 600 mg with lunch. 2. Vitamin D3, 2000 units p.o. with lunch. 3. Vitamin B12, 2000 mcg p.o. with lunch. 4. Zestril 5 mg p.o. daily. 5. Multivitamin 1 tablet p.o. with lunch. 6. Ventolin 2.5 every 6 hours p.r.n. 7. Atrovent HFA 2 puffs q.i.d. 8. Nicotine 21 mg patch. FOLLOWUP: 1. Follow up with Dr. Angulo in 2 or 3 days. 2. Follow up with Dr. Mata as needed. The patient was advised against smoking. MMODL / IJN: [id number] /
== END 2017-11-21 16:59 | disposition home or self-care (01) | DRG 389 ==
LOC: EC 01:08 → 4MS4W 03:13
PROVIDERS: ADMIT Hospitalist; ATTEND Hospitalist
DX: K56.50 Intestinal adhesions [bands], unspecified as to partial versus complete obstruction (principal); J44.1 Chronic obstructive pulmonary disease with (acute) exacerbation; F17.210 Nicotine dependence, cigarettes, uncomplicated; F32.9 Major depressive disorder, single episode, unspecified; F41.9 Anxiety disorder, unspecified; I10 Essential (primary) hypertension; K21.9 Gastro-esophageal reflux disease without esophagitis; K57.30 Diverticulosis of large intestine without perforation or abscess without bleeding; M19.91 Primary osteoarthritis, unspecified site; N39.3 Stress incontinence (female) (male); Z80.3 Family history of malignant neoplasm of breast; Z90.710 Acquired absence of both cervix and uterus; Z79.891 Long term (current) use of opiate analgesic; Z79.899 Other long term (current) drug therapy; Z88.1 Allergy status to other antibiotic agents; Z88.0 Allergy status to penicillin; Z90.49 Acquired absence of other specified parts of digestive tract
CPT/HCPCS: 74019; 80048; 85025; 94640; 99284

== ENCOUNTER → 2018-02-27 | Outpatient (CLI) | payer MEDICARE, BC ==
--- NOTE | 2018-02-28 14:31 | PE ---
EXAMINATION TYPE: PET CT fusion skull to thigh DATE OF EXAM: 02/27/2018 COMPARISON: Outside CT abdomen and pelvis November 18, 2017. HISTORY: Lung nodules and kidney per order. TECHNIQUE: Following the intravenous administration of 13.56 mCi of F-18 FDG, whole body images are performed from the skull base to the midthigh. Images are reviewed on the computer in the coronal, a xial, and sagittal planes. Reconstructed rotating images are created on independent workstation and reviewed on the computer. A noncontrast CT is performed in conjunction with the PET scan. SCAN: Initial Scan FINDINGS: SKULL BASE AND NECK: No suspicious hypermetabolic uptake is seen. CHEST, MEDIASTINUM, AND HILAR REGION: There is background fairly moderate emphysematous change. Corre sponding to outside CT there is subpleural right lower lobe nodule measuring 9 x 8 mm axial image 112 with minimal hypermetabolic uptake, max SUV is 2.21. There is bibasilar linear scarring and/or atele ctasis inferior to this. There is prominent pericarinal lymph node measuring 10 x 9 mm axial image 87 that is ametabolic. No suspicious areas of abnormal hypermetabolic uptake are clearly seen. ABDOMEN AND PELVIS: Normal excretion is seen in both kidneys through the bladder. There is abnormal h ypermetabolic uptake in the posterior midpole left renal mass seen better on prior contrast-enhanced CT as area of diminished cortical enhancement, measuring roughly 2.9 x 2.1 cm current study axial stan ge 151, max SUV is 8.02. No suspicious adenopathy or additional areas of abnormal hypermetabolic uptake are seen in the abdome n or pelvis. OSSEOUS STRUCTURES: No suspicious hypermetabolic uptake is present. OTHER CT: Visualized portion of brain shows age-related cerebral atrophy and chronic small vessel isc hemic change. Mild to moderate calcified plaque is seen at bilateral carotid bulbs, left greater than right. Ascending aorta measures up to 3.7 cm diameter axial image 92. There is moderate to severe 3 vessel coronary artery calcification. Gallbladder is suspected surgically absent. Uterus is surgically absent or markedly atrophic. There is moderate calcified plaque of aorta extending into branch vessels. Ectatic course is identifi ed without greater than 3 cm aneurysmal change is seen. Aorta measures up to 2.8 cm in transverse claritza meter axial image 169. There is multilevel facet arthropathy in the lower lumbar spine. There is multilevel spurring in the thoracolumbar spine. IMPRESSION: Suspicious mass concerning for renal cell carcinoma left kidney posteriorly mid pole leve l seen better on recent contrast-enhanced CT. Small right basilar nodule shows minimal hypermetabolic uptake, max SUV is less than 2.5 thus not consistent with metastatic lesion though it cannot be excl uded. Short-term follow-up CT and/or PET/CT in 3-6 months time is advised to reassess. No suspicious adenopathy or areas of hypermetabolic uptake identified otherwise to suggest metastatic disease.
== END | disposition home or self-care (01) ==
LOC: RADPETMAIN 11:23
PROVIDERS: ATTEND Family Medicine
DX: N28.89 Other specified disorders of kidney and ureter (principal); R91.8 Other nonspecific abnormal finding of lung field
CPT/HCPCS: 78815; A9552

== ENCOUNTER → 2019-06-03 | Outpatient (CLI) | payer MEDICARE, BC ==
--- NOTE | 2019-06-07 06:23 | PE ---
EXAMINATION TYPE: PET CT fusion skull to thigh DATE OF EXAM: 06/03/2019 COMPARISON: Chest CT November 30, 2018 and PET/CT February 27, 2018. Outside CT abdomen and pelvis [facility] 2017. HISTORY: Left-sided renal cancer progress study. Lung involvement on biopsy April per howard lees. TECHNIQUE: Following the intravenous administration of 10.753 mCi of F-18 FDG, whole body images are performed from the skull base to the midthigh. Images are reviewed on the computer in the coronal, axial, and sagittal planes. Reconstructed rotating images are created on independent workstation and reviewed on the computer. A noncontrast CT is performed in conjunction with the PET scan. SCAN: Subsequent Scan FINDINGS: SKULL BASE AND NECK: No new areas of suspicious hypermetabolic uptake. CHEST, MEDIASTINUM, AND HILAR REGION: Background mild to moderate underlying emphysematous changes re demonstrated. At mid aspect laterally in the right lower lobe there are new surgical clips from prior PET/CT. Prior visualized 8 mm round nodule or nodular consolidation on outside CT November 30, 2018 is diminished in size with linear component measuring 8 x 3 mm current study axial image 116 noted that is ametabo lic. Persistent right basilar scarring inferior to this. Stable ametabolic 8 x 3 mm lateral left basilar nodule axial image 125. Persistent focal linear scarr ing inferior left upper lobe near axial image 108. Stable prominent pericarinal lymph node measuring 10 x 9 mm axial image 94 that remains ametabolic. There are however subcentimeter slightly suspicious slightly hypermetabolic lymph nodes right hilar r egion axial image 99 (max SUV 2.72), subcarinal region axial image 100 (Max SUV 2.49) and AP window a xial image 89 (Max SUV 1.85). No new hypermetabolic pulmonary nodules or enlarged hypermetabolic thoracic adenopathy. ABDOMEN AND PELVIS: Interval left-sided total nephrectomy from prior PET/CT. Normal excretion from ri ght kidney. Mild nonspecific uptake left pelvic bowel loop axial image 210. Max SUV is 5.58 at this l evel. No new areas of suspicious hypermetabolic uptake otherwise. OSSEOUS STRUCTURES: No new areas suspicious hypermetabolic uptake. OTHER CT: Visualized portion of brain redemonstrates age-related cerebral atrophy and chronic small v essel ischemic change. Mild calcified plaque is redemonstrated at bilateral carotid bulbs, left greater than right. Ascending aorta measures up to 3.8 cm diameter axial image 99. There is moderate coronary artery calcification redemonstrated. Gallbladder is suspected surgically absent. Uterus is surgically absent or markedly atrophic. There is moderate calcified plaque of aorta extending into branch vessels. Ectatic course is identifi ed without greater than 3 cm aneurysmal change is seen. Aorta measures up to 2.8 cm in transverse claritza meter axial image 173. There is multilevel facet arthropathy in the lower lumbar spine. There is multilevel spurring in the thoracolumbar spine. IMPRESSION: Interval left-sided nephrectomy. Partial near-complete positive treatment response with o nly mild hypermetabolic uptake in the subcentimeter right hilar lymph node.
== END | disposition home or self-care (01) ==
LOC: RADPETMAIN 15:20
PROVIDERS: ATTEND Radiology Radiation Oncology
DX: R93.89 Abnormal findings on diagnostic imaging of other specified body structures (principal); C34.31 Malignant neoplasm of lower lobe, right bronchus or lung; Z88.0 Allergy status to penicillin; Z88.1 Allergy status to other antibiotic agents
CPT/HCPCS: 78815; A9552

== ENCOUNTER → 2019-12-09 | Outpatient (CLI) | payer MEDICARE, BC ==
--- NOTE | 2019-12-12 08:50 | PE ---
EXAMINATION TYPE: PET CT fusion skull to thigh DATE OF EXAM: 12/09/2019 COMPARISON: Prior PET/CT June 03, 2019 and older PET/CT. Most recent outside CT thorax November 28, 2019. HISTORY: Lung cancer diagnosed 2018 had surgery and radiation treatment , recent abnormal CT. TECHNIQUE: Following the intravenous administration of 11.30 mCi of F-18 FDG, whole body images are performed from the skull base to the midthigh. Images are reviewed on the computer in the coronal, a xial, and sagittal planes. Reconstructed rotating images are created on independent workstation and reviewed on the computer. A noncontrast CT is performed in conjunction with the PET scan. SCAN: Subsequent Scan FINDINGS: SKULL BASE AND NECK: No new areas of suspicious hypermetabolic uptake. CHEST, MEDIASTINUM, AND HILAR REGION: Background Mild to moderate underlying emphysematous change red emonstrated. Persistent postsurgical change periphery of the right lower lobe axial image 107. No charisma picious hypermetabolic uptake or increasing soft tissue nodularity at this level. Persistent right ba silar linear scarring inferior to this. Stable 8 x 3 mm left basilar ametabolic nodule or nodular scarring axial image 114. Additional scatte red linear scarring anterior superior to this. New suspicious hypermetabolic lymph nodes however for reference 12 x 10 mm AP window lymph node axial image 84, Max SUV of 3.44. For reference there is posterior paraesophageal lymph node axial image 84 measuring 1.3 x 1.1 cm max SUV is 6.24. For reference there is 1.7 x 1.3 cm subcarinal lymph node ax ial image 94, max SUV is 6.37. There is hypermetabolic difficult to measure right anterior suprahilar adenopathy axial image 93 Max SUV is 6.1. There is hypermetabolic inferior right hilar lymph node ax ial image 101, max SUV 3.82 No additional areas of suspicious hypermetabolic uptake. ABDOMEN AND PELVIS: No adrenal masses. No additional areas of suspicious hypermetabolic uptake. OSSEOUS STRUCTURES: No suspicious hypermetabolic uptake. OTHER CT: Visualized portion of brain redemonstrates age-related cerebral atrophy and chronic small v essel ischemic change. Mild calcified plaque is redemonstrated at left carotid bulb level. Ascending aorta measures up to 3 3.7 cm diameter axial image 91. There is moderate coronary artery calcification redemonstrated. Gallbladder is suspected surgically absent. Uterus is surgically absent or markedly atrophic. There is moderate calcified plaque of aorta extending into branch vessels. Ectatic course is identifi ed without greater than 3 cm aneurysmal change is seen. Aorta measures up to 2.8 cm in transverse claritza meter axial image 173. Sigmoid colonic diverticulosis redemonstrated. There is multilevel facet arthropathy in the lower lumbar spine. There is multilevel spurring in the thoracolumbar spine. Scoliotic curvature redemonstrated. IMPRESSION: Suspicious recurrent thoracic adenopathy as detailed above.
== END | disposition home or self-care (01) ==
LOC: RADPETMAIN 14:38
PROVIDERS: ATTEND Radiology Radiation Oncology
DX: C34.31 Malignant neoplasm of lower lobe, right bronchus or lung (principal)
CPT/HCPCS: 78815; A9552

== ENCOUNTER 2020-01-05 11:14 | Day surgery (SDC) | payer MEDICARE, BC ==
[2020-01-03 09:32] VITALS: BMI 26.1
[~2020-01-05 11:14] MED LIST changes: +ALBUTEROL NEB (CONC) 2.5 MG/0.5 ML INHALATION ONE; +ATROPINE SULFATE 0.4 MG/ML 1 ML VIAL IM ONE; -DEXAMETHASONE SOD PHOSPHATE 10 MG/ML 1 ML VIAL IV ONE; -ETOMIDATE 2 MG/ML 10 ML VIAL ONE; -GLYCOPYRROLATE 0.2 MG/ML 2 ML VIAL ONE; -HEPARIN SODIUM,PORCINE 5,000 UNIT/ML 1 ML VIAL SQ ONE; -HYDROcodone/APAP 5-325MG 1 EACH TAB PO ONE; -LACTATED RINGERS 1,000 ML IV ONE; -LIDOCAINE 1% 20 ML VIAL (10MG/ML) FOR IV START INTRADERMA ONE; -LIDOCAINE 1% INJ 10MG/ML (20 ML MDV) ONE; +LIDOCAINE 2% (PF) 20 MG/ML 5 ML VIAL INHALATION ONE; +LIDOCAINE VISCOUS 300 MG/15 ML CUP MUCOUS MEM ONE; -METOCLOPRAMIDE 5 MG/ML 2 ML VIAL IVP ONE; -MIDAZOLAM 2 MG/2 ML VIAL IV PRN; -NEOSTIGMINE 1 MG/ML 10 ML VIAL ONE; -ONDANSETRON 4 MG/2 ML VIAL IVP ONE; -ROCURONIUM BROMIDE 10 MG/ML 10 ML VIAL IV ONE; -ROPIVACAINE 5 MG/ML 30 ML VIAL MISCELLANE ONE; -ROPIVACAINE 5 MG/ML 30 ML VIAL ONE; +SODIUM CHLORIDE 0.9% 1,000 ML IV SCH; -SUCCINYLCHOLINE CHLORIDE 100 MG/5 ML SYR IV ONE; -ceFAZolin IN SWFI 2 GM/20 ML SYRINGE IVP ONE; -ePHEDrine SULFATE/0.9% NACL/PF 50 MG/5 ML SYRINGE IV ONE
[2020-01-05 12:08] VITALS: TEMP 97.6
[2020-01-05] MEDS ORDERED: ONDANSETRON 4 MG/2 ML VIAL ONE (12:17)
[2020-01-05] MEDS ORDERED: MIDAZOLAM 2 MG/2 ML VIAL ONE (13:49)
[2020-01-05] MEDS ORDERED: SUCCINYLCHOLINE CHLORIDE 100 MG/5 ML SYR IV ONE (13:49)
[2020-01-05] MEDS ORDERED: PROPOFOL 10 MG/ML 20 ML VIAL IV ONE (13:49)
[2020-01-05] MEDS ORDERED: LIDOCAINE 1% INJ 10MG/ML (20 ML MDV) ONE (13:49)
--- NOTE | 2020-01-05 15:10 | CT ---
EXAMINATION TYPE: CT Chest patrick Cazares Protocol DATE OF EXAM: 01/05/2020 COMPARISON: 12/09/2019 HISTORY: pre op navigation CT DLP: 558 mGycm Automated exposure control for dose reduction was used. FINDINGS: Diffuse edematous changes noted. Areas of subsegmental consolidation with atelectasis. Calcified gran uloma in the right lower lobe. No pneumothorax. No sizable pleural effusion. Stable left basilar nodu le measuring approximately 5 mm. The heart is mildly enlarged and there is a hiatal hernia. Coronary artery calcification is seen in t here is atherosclerotic change aorta. Ascending aorta measures 3.8 cm. Subpleural nodules, all measuring less than 5 mm too small to characterize. Hypertrophic and degenera tive changes spine. Mediastinal adenopathy stable. Measuring short axis of 1.1 cm in the subcarinal r egion. IMPRESSION: COPD WITH MULTIPLE SUBCENTIMETER NODULES SOME OF WHICH APPEAR TO RELATE TO GRANULOMA. STABLE MEDIASTI NAL ADENOPATHY.
--- NOTE | 2020-01-05 15:28 | XR ---
EXAMINATION TYPE: XR chest 1V portable DATE OF EXAM: 01/05/2020 Comparison: Correlation CT chest 01/05/2020 Clinical History: 79-year-old female Post procedure exam Findings: Heart mildly enlarged. Some type of retained metallic foreign bodies at the right base. Prominent epi cardial fat pad when correlating with CT. Relative upper lung lucencies. No consolidation, pneumothor ax, or pleural effusion seen. Impression: Mild cardiomegaly and COPD. Retained metal foreign bodies at the right base. No acute process seen.
[2020-01-05 16:03] VITALS: BP 138/89; PULSE 84; RESP 18
--- NOTE | 2020-01-05 20:22 | PCN ---
PROCEDURE NOTE PROCEDURE: Transbronchial needle aspiration/Rdz needle aspiration of a subcarinal lymph node. PREOPERATIVE DIAGNOSIS: Rule out recurrent lung cancer. POSTOPERATIVE DIAGNOSIS: Rule out recurrent lung cancer. OPERATORS: 1. Dr. Montoya. 2. Dr. García. PROCEDURE DESCRIPTION: There was informed consent and universal timeout. The patient's procedure was done under general anesthesia in endoscopy room #1. Janette Santos CRNA, provided general anesthesia along with Dr. Elias. After the patient was adequately sedated and anesthetized, the bronchoscope was inserted through the bronchoscope adapter connected to the endotracheal tube. We localized the lesion using the [employer] navigational bronchoscopy system in the area of the subcarinal region just to the right of midline. Five passes were done with the Rdz needle. The patient tolerated the procedure well. There was good sampling, I believe. The bronchoscope was withdrawn and the patient will be recovered. There was no immediate complication. MMODL / IJN: [id number] / [email or web address]
== END 2020-01-05 16:15 | disposition home or self-care (01) ==
LOC: ORWHC2ENDO 11:14
PROVIDERS: ATTEND Internal Medicine Critical Care Medicine
DX: C34.90 Malignant neoplasm of unspecified part of unspecified bronchus or lung (principal); C64.9 Malignant neoplasm of unspecified kidney, except renal pelvis; J44.9 Chronic obstructive pulmonary disease, unspecified; I10 Essential (primary) hypertension; M19.90 Unspecified osteoarthritis, unspecified site; M85.80 Other specified disorders of bone density and structure, unspecified site; E78.5 Hyperlipidemia, unspecified; Z90.49 Acquired absence of other specified parts of digestive tract; Z90.710 Acquired absence of both cervix and uterus; Z98.890 Other specified postprocedural states; Z97.2 Presence of dental prosthetic device (complete) (partial); Z79.51 Long term (current) use of inhaled steroids; Z79.899 Other long term (current) drug therapy; Z88.0 Allergy status to penicillin; Z88.1 Allergy status to other antibiotic agents; Z91.09 Other allergy status, other than to drugs and biological substances
CPT/HCPCS: 71045; 71250; 31629; 31627; J2250; J0461; J2405; J2001; J0330; J2704

== ENCOUNTER → 2020-04-27 | Outpatient (CLI) | payer MEDICARE, BC ==
--- NOTE | 2020-04-27 13:15 | PE ---
EXAMINATION TYPE: PET CT fusion skull to thigh DATE OF EXAM: 04/27/2020 COMPARISON: Prior PET/CT December 09, 2019 and older studies. HISTORY: Lung cancer progress study . Originally diagnosed 2018. Interval chemotherapy since last . TECHNIQUE: Following the intravenous administration of 12.0 mCi of F-18 FDG, whole body images are p erformed from the skull base to the midthigh. Images are reviewed on the computer in the coronal, ax ial, and sagittal planes. Reconstructed rotating images are created on independent workstation and r eviewed on the computer. A localization and attenuation correction CT is performed in conjunction w ith the PET scan. Blood glucose level was 98 SCAN: Subsequent Scan FINDINGS: SKULL BASE AND NECK: No new areas of abnormal hypermetabolic uptake. CHEST, MEDIASTINUM, AND HILAR REGION: Background mild to moderate underlying emphysematous change red emonstrated. Interval improvement in abnormal hypermetabolic and slightly enlarged subcarinal, left p aratracheal, and posterior paraesophageal hypermetabolic lymph node on current study. There is howeve r slightly larger and more hypermetabolic 1.8 x 1.4 cm right hilar lymph node axial image 92 on curre nt study. No new areas of abnormal hypermetabolic uptake in the thorax noted. ABDOMEN AND PELVIS: No new areas of abnormal hypermetabolic uptake. No new adrenal masses. Normal exc retion. OSSEOUS STRUCTURES: No new areas of abnormal hypermetabolic uptake. OTHER CT: Mild/moderate calcified plaque left greater than right carotid bulbs. Moderate three-vessel coronary artery calcification. Mild cardiomegaly redemonstrated. Stable small calcified nodular gran uloma right lower lobe axial image 111 and inferior posterior right linear scarring. Gallbladder surgically absent. Uterus surgically absent or atrophic. Moderate calcified plaque of the abdominal aorta with ectasia redemonstrated. IMPRESSION: Overall mixed treatment response, three thoracic lymph nodes show interval improvement. O ne right hilar lymph node shows slight interval progression. No new metastatic disease.
== END | disposition home or self-care (01) ==
LOC: RADPETMAIN 11:05
PROVIDERS: ATTEND Internal Medicine Hematology & Oncology
DX: R59.1 Generalized enlarged lymph nodes (principal); C34.31 Malignant neoplasm of lower lobe, right bronchus or lung
CPT/HCPCS: 78815; A9552

== ENCOUNTER 2020-11-04 14:46 | Emergency (ER) | payer MEDICARE, BC ==
[2020-11-04 15:15] VITALS: RESP 18
[2020-11-04] MEDS ORDERED: fentaNYL (PF) 50 MCG/ML 2 ML AMP IVP STA (18:11)
[2020-11-04 18:33] LABS: Appearance,Urine Clear (Clear); Bilirubin,Urine Negative (Negative); Blood,Urine Negative (Negative); Color,Urine Light Yellow; Glucose,Urine (UA) Negative (Negative); Ketones,Urine Negative (Negative); Leukocyte Esterase,Urine Negative (Negative); Nitrite,Urine Negative (Negative); Protein,Urine Negative (Negative); Specific Gravity,Urine 1.004 (1.001-1.035); Urobilinogen,Urine <2.0 mg/dL (<2.0)
[2020-11-04 18:36] LABS: Basophils % (A) 0 %; Eosinophils # (A) 0.1 k/uL (0-0.7); Eosinophils % (A) 1 %; HCT 38.9 % (34.0-46.0); HGB 12.8 gm/dL (11.4-16.0); Lymphocytes # (A) 0.9 k/uL (1.0-4.8); Lymphocytes % (A) 13 %; MCH 31.2 pg (25.0-35.0); MCHC 32.9 g/dL (31.0-37.0); Mean Platelet Volume 8.2; Monocytes # (A) 0.4 k/uL (0-1.0); Monocytes % (A) 5 %; Neutrophils # (A) 5.8 k/uL (1.3-7.7); Neutrophils % (A) 78 %; Platelet Count 290 k/uL (150-450); RBC 4.09 m/uL (3.80-5.40); RDW 13.5 % (11.5-15.5); WBC 7.4 k/uL (3.8-10.6)
[2020-11-04 18:46] LABS: INR 0.9 (<1.2); Partial Thromboplastin Time 22.3 sec (22.0-30.0); Prothrombin Time 9.6 sec (9.0-12.0)
[2020-11-04 18:56] LABS: Albumin 4.3 g/dL (3.5-5.0); Calcium 10.1 mg/dL (8.4-10.2); Potassium 4.9 mmol/L (3.5-5.1); Total Bilirubin 0.4 mg/dL (0.2-1.3); Total Protein 7.1 g/dL (6.3-8.2)
--- NOTE | 2020-11-04 19:18 | ED ---
General Adult HPI - General Chief complaint: Abdominal Pain Stated complaint: abd pain, bloating Source: patient Mode of arrival: ambulatory Limitations: no limitations - History of Present Illness Initial comments: Patient is an 80-year-old female with past medical history of lung cancer on current immune therapy with Dr. Neal who presents emergency Department with reported bilateral flank pain. Patient states the symptoms have been going on for the past one week. She has been seen twice in the [place] ER for her symptoms. They placed her on antibiotics and Flexeril for muscle pain and a UTI. She's been taking them as directed without improvement in her symptoms. She denies any fevers or chills. Denies cough. No shortness of breath. Denies any changes in her bowel or bladder habits. No nausea or vomiting. No history of DVT or PE. Patient does have a single kidney. No other alleviating, precipitating or modifying factors - Related Data Home Medications Medication Instructions Recorded Confirmed Cholecalciferol (Vitamin D3) 2,000 unit PO DAILY@1200 05/04/17 11/04/20 [Vitamin D3] Multivitamins, Thera [Multivitamin 1 tab PO DAILY@1200 05/04/17 11/04/20 (formulary)] Cetirizine HCl [Zyrtec] 10 mg PO DAILY 01/03/20 11/04/20 Magnesium 250 mg PO DAILY@1200 01/03/20 11/04/20 Acetaminophen Tab [Tylenol Tab] 500 mg PO Q6H PRN 11/04/20 11/04/20 Albuterol Inhaler [Ventolin Hfa 2 puff INHALATION RT-QID PRN 11/04/20 11/04/20 Inhaler] Budesonide/Formoterol Fumarate 2 puff INHALATION RT-BID 11/04/20 11/04/20 [Symbicort 160-4.5 Mcg Inhaler] Calcium Carbonate [Calcium] 600 mg PO DAILY@119911/04/20 11/04/20 Cyanocobalamin [Vitamin B-12] 500 mcg PO DAILY@1200 11/04/20 11/04/20 Cyclobenzaprine [Flexeril] 5 mg PO Q8H PRN 11/04/20 11/04/20 Doxycycline Hyclate [Vibramycin] 100 mg PO BID 11/04/20 11/04/20 Previous Rx's Medication Instructions Recorded HYDROcodone/APAP 5-325MG [Stafford 5] 1 each PO Q4HR PRN #18 tab 11/04/20 Allergies Allergy/AdvReac Type Severity Reaction Status Date / Time adhesive tape Allergy Rash/Hives Verified 11/04/20 18:39 azithromycin Allergy Rash/Hives Verified 11/04/20 18:39 [From Zithromax Z-Vadim] Penicillins Allergy Rash/Hives Verified 11/04/20 18:39 amoxicillin AdvReac thrush Verified 11/04/20 18:39 Review of Systems ROS Statement: Those systems with pertinent positive or pertinent negative responses have been documented in the HPI. ROS Other: All systems not noted in ROS Statement are negative. Past Medical History Past Medical History: Cancer, COPD, Deep Vein Thrombosis (DVT), Hyperlipidemia, Hypertension, Osteoarthritis (OA) Additional Past Medical History / Comment(s): hiatal hernia, constipation, kidney cancer, lung cancer(tx with radiation), hx skin cancer History of Any Multi-Drug Resistant Organisms: None Reported Past Surgical History: Cholecystectomy, Hernia Repair, Hysterectomy, Orthopedic Surgery Additional Past Surgical History / Comment(s): left knee surgery for torn ligament, ovarian cyst removed; bilat. big toenails removed, left nephrectomy, christy cataracts Past Anesthesia/Blood Transfusion Reactions: No Reported Reaction Past Psychological History: Anxiety Smoking Status: Current every day smoker - Past Family History Sister(s) Family Medical History: Cancer Additional Family Medical History / Comment(s): breast General Exam Limitations: no limitations General appearance: alert, in no apparent distress Head exam: Present: atraumatic, normocephalic, normal inspection Eye exam: Present: normal appearance, PERRL, EOMI. Absent: scleral icterus, con junctival injection, periorbital swelling ENT exam: Present: normal exam, mucous membranes moist Neck exam: Present: normal inspection. Absent: tenderness, meningismus, lymphadenopathy Respiratory exam: Present: normal lung sounds bilaterally. Absent: respiratory distress, wheezes, rales, rhonchi, stridor Cardiovascular Exam: Present: regular rate, normal rhythm, normal heart sounds. Absent: systolic murmur, diastolic murmur, rubs, gallop, clicks GI/Abdominal exam: Present: soft, normal bowel sounds. Absent: distended, tenderness, guarding, rebound, rigid Extremities exam: Present: normal inspection, full ROM, normal capillary refill. Absent: tenderness, pedal edema, joint swelling, calf tenderness Back exam: Present: normal inspection, CVA tenderness (R), CVA tenderness (L), vertebral tenderness (t10-t12) Neurological exam: Present: alert, oriented X3, CN II-XII intact Psychiatric exam: Present: normal affect, normal mood Skin exam: Present: warm, dry, intact, normal color. Absent: rash Course Vital Signs 11/04/20 11/04/20 11/04/20 15:01 20:13 20:24 Temperature 98.3 F Pulse Rate 95 98 98 Respiratory 18 18 Rate Blood Pressure 121/81 129/74 O2 Sat by Pulse 94 L 93 L Oximetry 11/04/20 21:40 Temperature 97.9 F Pulse Rate 95 Respiratory 18 Rate Blood Pressure 143/85 O2 Sat by Pulse 92 L Oximetry EKG Findings - EKG Comments: EKG Findings:: KG demonstrates a normal sinus rhythm with ventricular rate of 92. IA interval 148. QRS 80. QTC of 447. No acute ST segment elevations or depressions concerning for ischemic changes Medical Decision Making - Medical Decision Making Upon arrival patient is placed in room 5. A thorough history and physical exam is performed. Laboratory studies were conducted. Patient is given a liter bolus of normal saline and 50 g of fentanyl. Review of the patient's labora tory studies demonstrate a d-dimer of 1.15. Sodium 132. Patient does have a leigh kidney however normal kidney function at this time. I did discuss the risks and benefits of performing contrasted studies. The patient did receive fluids before and after imaging. CT results are reviewed and demonstrate a T9 compression fracture. Patient does have point tenderness along this region. 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 The patient feels comfortable with discharge home at this time. I did give her a small prescription for Stafford for pain control. Instructed not to take this with her Flexeril or while she is driving. She is given follow up information for Dr. Mitchell and Dr. Goodman levine. I did write her for a TLSO brace. The patient has any new or worsening symptoms she should return to the emergency room. Patient was in agreement with this plan she was discharged home in stable condition - Lab Data Result diagrams: 11/04/20 18:16 08/22/21 18:16 Lab Results 11/04/20 11/04/20 11/04/20 Range/Units 18:16 18:16 18:16 WBC 7.4 (3.8-10.6) k/uL RBC 4.09 (3.80-5.40) m/uL Hgb 12.8 (11.4-16.0) gm/dL Hct 38.9 (34.0-46.0) % MCV 95.0 (80.0-100.0) fL MCH 31.2 (25.0-35.0) pg MCHC 32.9 (31.0-37.0) g/dL RDW 13.5 (11.5-15.5) % Plt Count 290 (150-450) k/uL MPV 8.2 Neutrophils % 78 % Lymphocytes % 13 % Monocytes % 5 % Eosinophils % 1 % Basophils % 0 % Neutrophils # 5.8 (1.3-7.7) k/uL Lymphocytes # 0.9 L (1.0-4.8) k/uL Monocytes # 0.4 (0-1.0) k/uL Eosinophils # 0.1 (0-0.7) k/uL Basophils # 0.0 (0-0.2) k/uL PT 9.6 (9.0-12.0) sec INR 0.9 (<1.2) APTT 22.3 (22.0-30.0) sec D-Dimer 1.15 H (<0.60) mg/L FEU Sodium (137-145) mmol/L Potassium (3.5-5.1) mmol/L Chloride (98-107) mmol/L Carbon Dioxide (22-30) mmol/L Anion Gap mmol/L BUN (7-17) mg/dL Creatinine (0.52-1.04) mg/dL Est GFR (CKD-EPI)AfAm (>60 ml/min/1.73 sqM) Est GFR (CKD-EPI)NonAf (>60 ml/min/1.73 sqM) Glucose (74-99) mg/dL Plasma Lactic Acid Edwin (0.7-2.0) mmol/L Calcium (8.4-10.2) mg/dL Total Bilirubin (0.2-1.3) mg/dL AST (14-36) U/L ALT (4-34) U/L Alkaline Phosphatase (38-126) U/L Creatine Kinase (30-135) U/L Troponin I (0.000-0.034) ng/mL NT-Pro-B Natriuret Pep pg/mL Total Protein (6.3-8.2) g/dL Albumin (3.5-5.0) g/dL Lipase (23-300) U/L Urine Color Light Yellow Urine Appearance Clear (Clear) Urine pH 5.0 (5.0-8.0) Ur Specific [place] 1.004 (1.001-1.035) Urine Protein Negative (Negative) Urine Glucose (UA) Negative (Negative) Urine Ketones Negative (Negative) Urine Blood Negative (Negative) Urine Nitrite Negative (Negative) Urine Bilirubin Negative (Negative) Urine Urobilinogen <2.0 (<2.0) mg/dL Ur Leukocyte Esterase Negative (Negative) 11/04/20 11/04/20 11/04/20 Range/Units 18:16 18:16 18:16 WBC (3.8-10.6) k/uL RBC (3.80-5.40) m/uL Hgb (11.4-16.0) gm/dL Hct (34.0-46.0) % MCV (80.0-100.0) fL MCH (25.0-35.0) pg MCHC (31.0-37.0) g/dL RDW (11.5-15.5) % Plt Count (150-450) k/uL MPV Neutrophils % % Lymphocytes % % Monocytes % % Eosinophils % % Basophils % % Neutrophils # (1.3-7.7) k/uL Lymphocytes # (1.0-4.8) k/uL Monocytes # (0-1.0) k/uL Eosinophils # (0-0.7) k/uL Basophils # (0-0.2) k/uL PT (9.0-12.0) sec INR (<1.2) APTT (22.0-30.0) sec D-Dimer (<0.60) mg/L FEU Sodium 132 L (137-145) mmol/L Potassium 4.9 (3.5-5.1) mmol/L Chloride 101 (98-107) mmol/L Carbon Dioxide 21 L (22-30) mmol/L Anion Gap 10 mmol/L BUN 24 H (7-17) mg/dL Creatinine 0.99 (0.52-1.04) mg/dL Est GFR (CKD-EPI)AfAm 62 (>60 ml/min/1.73 sqM) Est GFR (CKD-EPI)NonAf 54 (>60 ml/min/1.73 sqM) Glucose 102 H (74-99) mg/dL Plasma Lactic Acid Edwin 0.9 (0.7-2.0) mmol/L Calcium 10.1 (8.4-10.2) mg/dL Total Bilirubin 0.4 (0.2-1.3) mg/dL AST 24 (14-36) U/L ALT 19 (4-34) U/L Alkaline Phosphatase 119 (38-126) U/L Creatine Kinase 101 (30-135) U/L Troponin I <0.012 (0.000-0.034) ng/mL NT-Pro-B Natriuret Pep pg/mL Total Protein 7.1 (6.3-8.2) g/dL Albumin 4.3 (3.5-5.0) g/dL Lipase 177 (23-300) U/L Urine Color Urine Appearance (Clear) Urine pH (5.0-8.0) Ur Specific Green[place] (1.001-1.035) Urine Protein (Negative) Urine Glucose (UA) (Negative) Urine Ketones (Negative) Urine Blood (Negative) Urine Nitrite (Negative) Urine Bilirubin (Negative) Urine Urobilinogen (<2.0) mg/dL Ur Leukocyte Esterase (Negative) 11/04/20 Range/Units 18:16 WBC (3.8-10.6) k/uL RBC (3.80-5.40) m/uL Hgb (11.4-16.0) gm/dL Hct (34.0-46.0) % MCV (80.0-100.0) fL MCH (25.0-35.0) pg MCHC (31.0-37.0) g/dL RDW (11.5-15.5) % Plt Count (150-450) k/uL MPV Neutrophils % % Lymphocytes % % Monocytes % % Eosinophils % % Basophils % % Neutrophils # (1.3-7.7) k/uL Lymphocytes # (1.0-4.8) k/uL Monocytes # (0-1.0) k/uL Eosinophils # (0-0.7) k/uL Basophils # (0-0.2) k/uL PT (9.0-12.0) sec INR (<1.2) APTT (22.0-30.0) sec D-Dimer (<0.60) mg/L FEU Sodium (137-145) mmol/L Potassium (3.5-5.1) mmol/L Chloride (98-107) mmol/L Carbon Dioxide (22-30) mmol/L Anion Gap mmol/L BUN (7-17) mg/dL Creatinine (0.52-1.04) mg/dL Est GFR (CKD-EPI)AfAm (>60 ml/min/1.73 sqM) Est GFR (CKD-EPI)NonAf (>60 ml/min/1.73 sqM) Glucose (74-99) mg/dL Plasma Lactic Acid Dewin (0.7-2.0) mmol/L Calcium (8.4-10.2) mg/dL Total Bilirubin (0.2-1.3) mg/dL AST (14-36) U/L ALT (4-34) U/L Alkaline Phosphatase (38-126) U/L Creatine Kinase (30-135) U/L Troponin I (0.000-0.034) ng/mL NT-Pro-B Natriuret Pep 293 pg/mL Total Protein (6.3-8.2) g/dL Albumin (3.5-5.0) g/dL Lipase (23-300) U/L Urine Color Urine Appearance (Clear) Urine pH (5.0-8.0) Ur Specific [place] (1.001-1.035) Urine Protein (Negative) Urine Glucose (UA) (Negative) Urine Ketones (Negative) Urine Blood (Negative) Urine Nitrite (Negative) Urine Bilirubin (Negative) Urine Urobilinogen (<2.0) mg/dL Ur Leukocyte Esterase (Negative) Disposition Clinical Impression: Flank pain, Compression fracture of T9 vertebra Disposition: HOME SELF-CARE Condition: Stable Instructions (If sedation given, give patient instructions): Vertebral Compression Fracture (ED) Additional Instructions: Please take the pain med as directed. Follow up with your PCP in 2-4 days. Call and make an appointment with one of the spine surgeons for further treatment options. Return to the ED for any new or worsening symptoms. Prescriptions: HYDROcodone/APAP 5-325MG [Stafford 5] 1 each PO Q4HR PRN #18 tab PRN Reason: Pain Is patient prescribed a controlled substance at d/c from ED?: Yes When asked, does pt state using other controlled substances?: No If prescribed controlled substance>3 days was MAPS reviewed?: Prescribed <3 Days If opioid is for acute pain is fill amount 7 days or less?: Yes If Rx opioid, was Start Talking consent form obtained?: Yes Referrals: Sathish Aleman MD [Primary Care Provider] - 1-2 days Rafiq Fowler DO [Doctor of Osteopathic Medicine] - 1-2 days Cayetano Brewer DO [Doctor of Osteopathic Medicine] - 1-2 days Time of Disposition: 21:13
[2020-11-04] MEDS ORDERED: SODIUM CHLORIDE 0.9% 1,000 ML IV ONE (19:31)
[2020-11-04] MEDS ORDERED: IPRATROPIUM-ALBUTEROL 3 ML NEB INHALATION STA (20:15)
--- NOTE | 2020-11-04 20:40 | CT ---
EXAMINATION TYPE: CT chest angio for PE DATE OF EXAM: 11/04/2020 COMPARISON: CT chest 01/05/2020 HISTORY: right sided chest and abdominal pain. Hx of renal and lung ca. CT DLP: 297.8 mGycm Automated exposure control for dose reduction was used. CONTRAST: CT Chest for pulmonary embolism performed with with IV Contrast, patient injected with 80cc mL of Iso abelardo 370. FINDINGS: LUNGS: Right upper lobe predominant emphysematous changes. The lungs are grossly clear, there is no c oncerning parenchymal mass or nodule identified. Bibasilar subsegmental atelectasis and/or scarring. There is no pleural effusion or pneumothorax seen. The tracheobronchial tree is patent. MEDIASTINUM: There is satisfactory enhancement of the pulmonary artery and its branches, there is no CT evidence for pulmonary embolism. There are no greater than 1 cm hilar or mediastinal lymph nodes. No pericardial effusion is seen. Cardiac size appears within normal limits. Scattered atherosclero tic vascular calcifications of the thoracic aorta without aneurysm. Moderate to severe coronary arter y calcifications. OTHER: Unchanged moderate anterior compression deformity of the T9 vertebral body, which is new comp ared to 04/27/2020. IMPRESSION: 1. No evidence of pulmonary embolism. 2. No focal consolidation, pleural effusion, or pneumothorax. 3. New age-indeterminate moderate anterior compression deformity of the T9 vertebral body. Correlate with point tenderness.
--- NOTE | 2020-11-04 20:46 | CT ---
EXAMINATION TYPE: CT abdomen pelvis w con DATE OF EXAM: 11/04/2020 COMPARISON: CT 04/27/2020 HISTORY: right sided chest and abdominal pain. Hx of renal and lung ca. CT DLP: 978.8 mGycm Automated exposure control for dose reduction was used. TECHNIQUE: Helical acquisition of images was performed from the lung bases through the pelvis. Coron al and sagittal reformatted images were obtained. CONTRAST: Performed without Oral Contrast and with IV Contrast, patient injected with 80cc mL of Isovue 370. FINDINGS: Lung bases appear clear. Liver, spleen, previous, and right adrenal gland appear unremarkable. Gallbladder is absent. No intra hepatic or extra hepatic biliary ductal dilatation. Left kidney is absent. Right kidney is present and demonstrates multiple peripelvic cysts and cortica l cysts. No hydronephrosis. Urinary bladder appears decompressed. Uterus is absent. No adnexal masses . Visualized bowel is of normal caliber without evidence of bowel obstruction. Distal colonic diverticu losis without adjacent inflammatory changes. Appendix is unremarkable. 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 No intra-abdominal or retroperitoneal lymphadenopathy. Moder ate multilevel degenerative changes of the lumbar spine and bilateral hips. IMPRESSION: 1. No definite acute intra-abdominal process. 2. Status post left nephrectomy.
[2020-11-04 21:41] VITALS: BP 143/85; PULSE 95; TEMP 97.9
[2020-11-04] MEDS ORDERED: HYDROcodone/APAP 5-325MG 1 EACH TAB PO STA (21:48)
== END 2020-11-04 22:05 | disposition home or self-care (01) ==
LOC: EC 14:46
DX: M48.54XA Collapsed vertebra, not elsewhere classified, thoracic region, initial encounter for fracture (principal); R10.9 Unspecified abdominal pain; R14.0 Abdominal distension (gaseous); F17.200 Nicotine dependence, unspecified, uncomplicated; I10 Essential (primary) hypertension; J44.9 Chronic obstructive pulmonary disease, unspecified; Z79.51 Long term (current) use of inhaled steroids; Z88.0 Allergy status to penicillin; Z90.49 Acquired absence of other specified parts of digestive tract; Z90.5 Acquired absence of kidney; Z88.1 Allergy status to other antibiotic agents; Z91.09 Other allergy status, other than to drugs and biological substances
CPT/HCPCS: 99284; 96374; 36415; 94640; 93005; 85379; 83880; 80053; 82550; 83605; 83690; 84484; 85025; 85610; 85730; 81003; 71275; 74177; J3010; Q9967

== ENCOUNTER → 2020-11-09 | Outpatient (CLI) | payer MEDICARE, BC ==
--- NOTE | 2020-11-12 06:48 | PE ---
EXAMINATION TYPE: PET CT fusion skull to thigh DATE OF EXAM: 11/09/2020 COMPARISON: Most recent whole body CT November 04, 2020. Most recent PET/CT April 27, 2020 and older studies HISTORY: History of left-sided kidney cancer status post nephrectomy. History of lung cancer diagnose d in 2018 most recent chemotherapy and radiation treatment through March 2020 TECHNIQUE: Following the intravenous administration of 13.7 mCi of F-18 FDG, whole body images are p erformed from the skull base to the midthigh. Images are reviewed on the computer in the coronal, ax ial, and sagittal planes. Reconstructed rotating images are created on independent workstation and r eviewed on the computer. A localization and attenuation correction CT is performed in conjunction w ith the PET scan. Blood glucose level equals 82 SCAN: Subsequent Scan FINDINGS: SKULL BASE AND NECK: Mild hypermetabolic uptake corresponds to upper posterior left cervical muscle p resumed postinflammatory or axial image 34. No additional areas of abnormal hypermetabolic uptake. CHEST, MEDIASTINUM, AND HILAR REGION: Background mild underlying emphysematous change is redemonstrat ed. Slightly enlarged hypermetabolic right hilar lymph node on prior study is now not clearly identif ied. It is likely just under 1.0 cm in size corresponding to most recent CT axial image 72. New Mild hypermetabolic uptake in the distal esophagus above the diaphragmatic hiatus on axial image 116, max SUV is 4.27. No additional new areas of abnormal hypermetabolic uptake in the thorax noted. ABDOMEN AND PELVIS: Persistent slight asymmetric thickening of left adrenal gland with new more nodul ar hypermetabolic uptake along the inferior medial aspect axial image 140, max SUV is 4.91. Difficult to localize to adrenal gland versus adjacent new suspicious lymph node. Prominent excretion right kidney redemonstrated. Left kidney surgically absent. No additional areas o f new abnormal hypermetabolic uptake. OSSEOUS STRUCTURES: No new areas of abnormal hypermetabolic uptake. OTHER CT: Mild/moderate calcified plaque left greater than right carotid bulbs it is redemonstrated. Moderate to severe three-vessel coronary artery calcification is redemonstrated. Mild cardiomegaly re demonstrated. Stable small metallic foreign bodies right lower lobe and inferior posterior right line ar scarring redemonstrated. Gallbladder once again noted surgically absent. Uterus surgically absent or atrophic. Moderate calcif ied plaque of the abdominal aorta with ectasia redemonstrated. IMPRESSION: Positive interval treatment response to right hilar nodule or lymph node. However new charisma picious uptake distal esophagus should be correlated with direct visualization and suspicious uptake in level of left adrenal gland favors developing adenopathy.
== END | disposition home or self-care (01) ==
LOC: RADPETMAIN 10:10
PROVIDERS: ATTEND Internal Medicine Hematology & Oncology
DX: C34.31 Malignant neoplasm of lower lobe, right bronchus or lung (principal); R59.9 Enlarged lymph nodes, unspecified
CPT/HCPCS: 78815; A9552

== ENCOUNTER → 2020-11-16 | Outpatient (CLI) | payer MEDICARE, BC ==
--- NOTE | 2020-11-17 09:23 | NM ---
EXAMINATION TYPE: NM bone scan whole body DATE OF EXAM: 11/16/2020 COMPARISON: NONE HISTORY: M47.817 spondylosis , lung CA Delayed whole-body scanning was performed following the injection of 21.9 mCi Tc 99m MDP. Images acq uired 3.5 hours post injection. FINDINGS: There is increased uptake noted to involve the thoracic vertebral segments T8 and T9. Metastatic dise ase is not excluded. Mild spinous process uptake noted of T10. Degenerative uptake is noted along the cervical spine and cervicothoracic junction. Lower lumbar degenerative uptake noted as well as degen erative uptake about the shoulders, elbows, wrists and knees. IMPRESSION: Increased uptake involving T8 and T9. Metastatic disease is not excluded.
== END | disposition home or self-care (01) ==
LOC: RADNMMAIN 11:29
PROVIDERS: ATTEND Physical Medicine & Rehabilitation
DX: C34.90 Malignant neoplasm of unspecified part of unspecified bronchus or lung (principal); M47.817 Spondylosis without myelopathy or radiculopathy, lumbosacral region
CPT/HCPCS: 78306; A9503

== ENCOUNTER 2023-03-20 11:53 | Inpatient (IN) | payer MEDICARE, BC ==
[2023-03-20] MEDS ORDERED: NALOXONE 0.4 MG/ML 1 ML VIAL IVP PRN (13:01)
[2023-03-20] MEDS ORDERED: ACETAMINOPHEN TAB 325 MG TAB PO PRN (13:13)
[2023-03-20] MEDS ORDERED: IPRATROPIUM-ALBUTEROL 3 ML NEB INHALATION PRN (13:13)
[2023-03-20] MEDS ORDERED: IPRATROPIUM-ALBUTEROL 3 ML NEB INHALATION STA (13:14)
--- NOTE | 2023-03-20 13:16 | ED ---
General Adult HPI - General Chief complaint: Shortness of Breath Stated complaint: COPD Time Seen by Provider: 03/20/23 12:17 Source: patient, EMS, RN notes reviewed, old records reviewed Mode of arrival: EMS Limitations: no limitations - History of Present Illness Initial comments: 82-year-old female transferred from [facility] with COPD exacerbation. Patient was transferred for pulmonary consultation and continue treatment of COPD with hypoxia. Patient has increased oxygen requirements, typically wears 2 L and has required 4 L. She had workup including laboratory testing, EKG, CT angiography at [facility]. - Related Data Home Medications Medication Instructions Recorded Confirmed Cholecalciferol (Vitamin D3) 2,000 unit PO DAILY@1200 05/04/17 11/04/20 [Vitamin D3] Multivitamins, Thera [Multivitamin 1 tab PO DAILY@1200 05/04/17 11/04/20 (formulary)] Cetirizine HCl [Zyrtec] 10 mg PO DAILY 01/03/20 11/04/20 Magnesium 250 mg PO DAILY@1200 01/03/20 11/04/20 Acetaminophen Tab [Tylenol Tab] 500 mg PO Q6H PRN 11/04/20 11/04/20 Albuterol Inhaler [Ventolin Hfa 2 puff INHALATION RT-QID PRN 11/04/20 11/04/20 Inhaler] Budesonide/Formoterol Fumarate 2 puff INHALATION RT-BID 11/04/20 11/04/20 [Symbicort 160-4.5 Mcg Inhaler] Calcium Carbonate [Calcium] 600 mg PO DAILY@119911/04/20 11/04/20 Cyanocobalamin [Vitamin B-12] 500 mcg PO DAILY@119911/04/20 11/04/20 Cyclobenzaprine [Flexeril] 5 mg PO Q8H PRN 11/04/20 11/04/20 Doxycycline Hyclate [Vibramycin] 100 mg PO BID 11/04/20 11/04/20 Previous Rx's Medication Instructions Recorded HYDROcodone/APAP 5-325MG [Mentor 5] 1 each PO Q4HR PRN #18 tab 11/04/20 Allergies Allergy/AdvReac Type Severity Reaction Status Date / Time adhesive tape Allergy Rash/Hives Verified 03/20/23 12:31 azithromycin Allergy Rash/Hives Verified 03/20/23 12:31 [From Zithromax Z-Vadim] Penicillins Allergy Rash/Hives Verified 03/20/23 12:31 amoxicillin AdvReac thrush Verified 03/20/23 12:31 Review of Systems ROS Statement: Those systems with pertinent positive or pertinent negative responses have been documented in the HPI. ROS Other: All systems not noted in ROS Statement are negative. Past Medical History Past Medical History: Cancer, COPD, Deep Vein Thrombosis (DVT), Hyperlipidemia, Hypertension, Osteoarthritis (OA) Additional Past Medical History / Comment(s): hiatal hernia, constipation, kidney cancer, lung cancer(tx with radiation), hx skin cancer History of Any Multi-Drug Resistant Organisms: None Reported Past Surgical History: Cholecystectomy, Hernia Repair, Hysterectomy, Orthopedic Surgery Additional Past Surgical History / Comment(s): left knee surgery for torn ligament, ovarian cyst removed; bilat. big toenails removed, left nephrectomy, christy cataracts Past Anesthesia/Blood Transfusion Reactions: No Reported Reaction Past Psychological History: Anxiety Smoking Status: Current every day smoker - Past Family History Sister(s) Family Medical History: Cancer Additional Family Medical History / Comment(s): breast General Exam Limitations: no limitations General appearance: alert, in no apparent distress Head exam: Present: atraumatic, normocephalic Eye exam: Present: normal appearance, PERRL ENT exam: Present: normal exam Neck exam: Present: normal inspection. Absent: tenderness, meningismus Respiratory exam: Present: respiratory distress, wheezes, rhonchi Cardiovascular Exam: Present: regular rate, normal rhythm GI/Abdominal exam: Present: soft. Absent: distended, tenderness, guarding Course Vital Signs 03/20/23 03/20/23 12:19 13:18 Temperature 97.8 F Pulse Rate 106 H Respiratory 22 24 Rate Blood Pressure 121/74 O2 Sat by Pulse 93 L 88 L Oximetry Medical Decision Making - Medical Decision Making Was pt. sent in by a medical professional or institution (, PA, GEM TECHNICIAN, urgent care, hospital, or fdc...) When possible be specific @ -Sent from [facility] for COPD exacerbation. Did you speak to anyone other than the patient for history (EMS, parent, family, police, friend...)? What history was obtained from this source @ -No Did you review nursing and triage notes (agree or disagree)? Why? @ -I reviewed and agree with nursing and triage notes Were old charts reviewed (outside hosp., previous admission, EMS record, old EKG, old radiological studies, urgent care reports/EKG's, fdc records)? Report findings @ -No old charts were reviewed Differential Diagnosis (chest pain, altered mental status, abdominal pain women, abdominal pain men, vaginal bleeding, weakness, fever, dyspnea, syncope, headache, dizziness, GI bleed, back pain, seizure, CVA, palpatations, mental health, musculoskeletal)? @ -[Differential Dyspnea: Coronary syndrome, arrhythmia, tamponade, asthma, COPD, pulmonary embolism, pneumonia, pneumothorax, pulmonary effusion, anaphylaxis, diabetic ketoacidosis, flailed chest, pulmonary contusion, diaphragmatic rupture, anemia, neuro muscular, this is not meant to be an all-inclusive list. EKG interpreted by me (3pts min.). @ -As above X-rays interpreted by me (1pt min.). @ -None done CT interpreted by me (1pt min.). @ -CT images from outside hospital being loaded U/S interpreted by me (1pt. min.). @ -None done What testing was considered but not performed or refused? (CT, X-rays, U/S, labs)? Why? @ -None What meds were considered but not given or refused? Why? @ -None Did you discuss the management of the patient with other professionals (professionals i.e. , PA, GEM TECHNICIAN, lab, RT, psych nurse, social service coordinator, industrial chemicals supervisor, teacher, chief operating officer, medical case manager)? Give summary @ Dr. Muller Was smoking cessation discussed for >3mins.? @ -No Was critical care preformed (if so, how long)? @ -No Were there social determinants of health that impacted care today? How? (Oleg elessness, low income, unemployed, alcoholism, drug addiction, transportation, low edu. Level, literacy, decrease access to med. care, shelter, rehab)? @ -No Was there de-escalation of care discussed even if they declined (Discuss DNR or withdrawal of care, Hospice)? DNR status @ -No What co-morbidities impacted this encounter? (DM, HTN, Smoking, COPD, CAD, Cancer, CVA, ARF, Chemo, Hep., AIDS, mental health diagnosis, sleep apnea, morbid obesity)? @ COPD Was patient admitted / discharged? Hospital course, mention meds given and route, prescriptions, significant lab abnormalities, going to OR and other pertinent info. @ -Admitted to internal medicine with pulmonology on consult Undiagnosed new problem with uncertain prognosis? @ -No Drug Therapy requiring intensive monitoring for toxicity (Heparin, Nitro, Insulin, Cardizem)? @ -No Were any procedures done? @ -No Diagnosis/symptom? @ -COPD exacerbation with hypoxia Acute, or Chronic, or Acute on Chronic? @Acute Uncomplicated (without systemic symptoms) or Complicated (systemic symptoms)? @ -[Complicated Side effects of treatment? @ -No Exacerbation, Progression, or Severe Exacerbation? @ -No Poses a threat to life or bodily function? How? (Chest pain, USA, NM, pneumonia, PE, COPD, DKA, ARF, appy, cholecystitis, CVA, Diverticulitis, Homicidal, Suicidal, threat to staff... and all critical care pts) @ -[Yes, respiratory failure Disposition Clinical Impression: COPD exacerbation Disposition: ADMITTED IP TO THIS HOSP Condition: Stable Is patient prescribed a controlled substance at d/c from ED?: No Referrals: Sathish Aleman MD [Primary Care Provider] - 1-2 days Time of Disposition: 13:21
[2023-03-20] MEDS ORDERED: BUDESONIDE 1 MG/2 ML NEBU INHALATION STA (13:20)
[2023-03-20] MEDS ORDERED: CYCLOBENZAPRINE 5 MG TAB PO PRN (13:21)
[2023-03-20] MEDS ORDERED: HYDROcodone/APAP 5-325MG 1 EACH TAB PO PRN (13:21)
[2023-03-20] MEDS: guaiFENesin 600 MG TABLET.ER PO SCH ×3 (14:11→23:07)
[2023-03-20] MEDS: NICOTINE 21MG/24HR PATCH TRANSDERM SCH (14:12)
[2023-03-20] MEDS: ENOXAPARIN 40 MG/0.4 ML SYRINGE SQ SCH (14:14)
[2023-03-20] MEDS ORDERED: MONTELUKAST 10 MG TAB PO PRN (16:04)
--- NOTE | 2023-03-20 16:06 | P.HPIM ---
History of Present Illness H&P Date: 03/20/23 Chief Complaint: Short of breath This is a pleasant 82-year-old patient who follows with Dr. Aleman. Chronic stable medical conditions include hypertension, hyperlipidemia, osteoarthritis, hiatal hernia, lung cancer was treated with chemotherapy and radiation treatment.-Has been for 2 years ago has been cancer free. Does follow with Dr. Neal. Patient long-standing smoker. Presents with progressive worsening short of breath. Some wheezing. Some cough. Not able to expectorate. Had a fever about 5 days ago. Appetite is fair. Chronic leg bilateral edema that goes up in the morning. . Patient at home use a half liters of oxygen. A bit tired and rundown. Review of systems: GEN.: Tired EYES: None HEENT: None NECK: None RESPIRATORY: As above CARDIOVASCULAR: No chest pain GASTROINTESTINAL: None GENITOURINARY: None MUSCULOSKELETAL: Joint pains LYMPHATICS: None HEMATOLOGICAL: None PSYCHIATRY: None NEUROLOGICAL: None Social history: Smoking a pack and half for close to 67 years. Was drinking 4-5 beers a day previously. Lives alone. Home walks into half liters. Physical examination: VITAL SIGNS: 97.8, 106, 22, 121/74, 88% on 4 L GENERAL: BMI 24.2, sitting up bed, short of breath. EYES: Pupils equal. Conjunctiva normal. HEENT: External appearance of nose and ears normal, oral cavity grossly normal. NECK: JVD not raised; masses not palpable. HEART: First and second heart sounds are normal; no edema. LUNGS: Respiratory rate increased, diminished breath sounds prolonged expiration not able to speak in full sentences. ABDOMEN: Soft, nontender, liver spleen not palpable, no masses palpable. PSYCH: Alert and oriented x3; mood and affect a bit anxiousl. MUSCULOSKELETAL:No Clubbing/cyanosis;muscles-grossly intact. OA NEUROLOGICAL: Cranial nerves grossly intact; no facial asymmetry, power and sensation grossly intact. LYMPHATICS: No lymph nodes palpable in the axilla and neck Assessment and plan: -Acute severe COPD exacerbation in a current smoker along with acute bronchitis DuoNeb 4 times a day. IV Solu-Medrol. Nebulized Pulmicort. Nebulized Perforomist. Mucinex -Acute bronchitis Omnicef -Acute hypoxic respiratory failure from COPD exacerbation Supplement oxygen -Chronic hypoxic respiratory failure from COPD Use 2-1/2 liters of walks and at home -Chronic nicotine dependence, cigarette smoker Nicotine patch -GERD Omeprazole Care was discussed with the patient. Questions answered. Given the complexity and severity of patient's condition expect the patient to be in the hospital at least for 2 overnights Past Medical History Past Medical History: Cancer, COPD, Deep Vein Thrombosis (DVT), Hyperlipidemia, Hypertension, Osteoarthritis (OA) Additional Past Medical History / Comment(s): hiatal hernia, constipation, kidney cancer, lung cancer(tx with radiation), hx skin cancer History of Any Multi-Drug Resistant Organisms: None Reported Past Surgical History: Cholecystectomy, Hernia Repair, Hysterectomy, Orthopedic Surgery Additional Past Surgical History / Comment(s): left knee surgery for torn ligament, ovarian cyst removed; bilat. big toenails removed, left nephrectomy, christy cataracts Past Anesthesia/Blood Transfusion Reactions: No Reported Reaction Past Psychological History: Anxiety Smoking Status: Current every day smoker - Past Family History Sister(s) Family Medical History: Cancer Additional Family Medical History / Comment(s): breast Medications and Allergies Home Medications Medication Instructions Recorded Confirmed Type Cholecalciferol (Vitamin D3) 50 mcg PO DAILY 05/04/17 03/20/23 History [Vitamin D3] Cetirizine HCl [Zyrtec] 10 mg PO DAILY 01/03/20 03/20/23 History Magnesium 250 mg PO DAILY 01/03/20 03/20/23 History Acetaminophen Tab [Tylenol Tab] 1,000 mg PO Q6H PRN 11/04/20 03/20/23 History Albuterol Inhaler [Ventolin Hfa 2 puff INHALATION RT-QID PRN 11/04/20 03/20/23 History Inhaler] Budesonide/Formoterol Fumarate 2 puff INHALATION RT-BID 11/04/20 03/20/23 History [Symbicort 160-4.5 Mcg Inhaler] Cyanocobalamin [Vitamin B-12] 500 mcg PO DAILY 11/04/20 03/20/23 History Albuterol Nebulized [Ventolin 2.5 mg INHALATION RT-QID PRN 03/20/23 03/20/23 History Nebulized] Calcium Carbonate/Vitamin D3 1 cap PO DAILY 03/20/23 03/20/23 History [Calcium 600 mg-D3 10 Mcg (400 Iu)] Fluticasone Nasal [place] [Flonase 1 spr EA NOSTRIL DAILY 03/20/23 03/20/23 History Nasal [place]] Montelukast [Singulair] 10 mg PO DAILY PRN 03/20/23 03/20/23 History Multivit-Min/FA/Lycopen/Lutein 1 tab PO DAILY 03/20/23 03/20/23 History [Centrum Silver Tablet] Omeprazole 40 mg PO DAILY 03/20/23 03/20/23 History Sennosides/Docusate Sodium [Senna 1 tab PO HS 03/20/23 03/20/23 History Plus 8.6-50 mg Tablet] polyethylene glycoL 3350 [Miralax] 17 gm PO DAILY PRN 03/20/23 03/20/23 History Allergies Allergy/AdvReac Type Severity Reaction Status Date / Time adhesive tape Allergy Rash/Hives Verified 03/20/23 13:20 Penicillins Allergy Rash/Hives Verified 03/20/23 13:20 all over body amoxicillin AdvReac Rash/Hives Verified 03/20/23 13:20 all over body azithromycin AdvReac Thrush Verified 03/20/23 13:20 [From Zithromax Z-Vadim] Physical Exam Vitals: Vital Signs Temp Pulse Resp BP Pulse Ox 03/20/23 13:18 24 88 L 03/20/23 12:19 97.8 F 106 H 22 121/74 93 L Intake and Output 03/19/23 03/20/23 03/20/23 22:59 06:59 14:59 Other: Weight 63.957 kg
--- NOTE | 2023-03-20 16:26 | XR ---
EXAMINATION TYPE: XR chest 2V DATE OF EXAM: 03/20/2023 4:22 PM CLINICAL INDICATION:Female, 82 years old with history of Short of breath, cough; PHH COMPARISON: Chest radiographs from 01/05/2020. TECHNIQUE: XR chest 2V Frontal and lateral views of the chest. FINDINGS: Lungs/Pleura: No evidence of focal consolidation or pneumothorax. Blunting of the costophrenic angles is present. Pulmonary vascularity: Pulmonary vascular congestion. Heart/mediastinum: Cardiomediastinal silhouette is enlarged and stable. Musculoskeletal: Multiple level degenerative disc disease changes seen throughout the spine. Other findings: None IMPRESSION: Cardiomegaly, pulmonary vascular congestion and bilateral pleural effusions. Correlate with BNP for c ongestive heart failure.
[2023-03-20] MEDS: IPRATROPIUM-ALBUTEROL 3 ML NEB INHALATION SCH ×2 (16:29→20:45)
[2023-03-20 16:54] LABS: Basophils % (A) 0 %; Eosinophils % (A) 0 %; HCT 36.1 % (34.0-46.0); HGB 11.5 gm/dL (11.4-16.0); Hypochromasia Slight; Lymphocytes # (A) 0.2 k/uL (1.0-4.8); Lymphocytes % (A) 2 %; MCH 30.1 pg (25.0-35.0); MCHC 31.8 g/dL (31.0-37.0); MCV 94.6 fL (80.0-100.0); Mean Platelet Volume 7.7; Monocytes # (A) 0.2 k/uL (0-1.0); Monocytes % (A) 2 %; Neutrophils # (A) 10.1 k/uL (1.3-7.7); Neutrophils % (A) 95 %; Platelet Count 316 k/uL (150-450); RBC 3.82 m/uL (3.80-5.40); RDW 12.8 % (11.5-15.5); WBC 10.6 k/uL (3.8-10.6)
[2023-03-20 17:19] LABS: ALT 37 U/L (4-34); AST 37 U/L (14-36); African American GFR (CKD) 78 (>60 ml/min/1.73 sqM); Albumin 3.5 g/dL (3.5-5.0); Albumin/Globulin Ratio 1.3; Alkaline Phosphatase 104 U/L (38-126); Anion Gap 11 mmol/L; Blood Urea Nitrogen 28 mg/dL (7-17); Calcium 9.2 mg/dL (8.4-10.2); Carbon Dioxide 26 mmol/L (22-30); Chloride 97 mmol/L (98-107); Globulin 2.8 g/dL; Glucose 120 mg/dL (74-99); Non-African American GFR(CKD) 68 (>60 ml/min/1.73 sqM); Potassium 5.2 mmol/L (3.5-5.1); Sodium 134 mmol/L (137-145); Total Bilirubin 0.3 mg/dL (0.2-1.3); Total Protein 6.3 g/dL (6.3-8.2)
[2023-03-20] MEDS: CEFDINIR 300 MG CAP PO SCH (18:43)
[2023-03-20] MEDS: methylPREDNISolone SOD SUCCI 125 MG/2 ML VIAL IV SCH ×2 (18:44→23:08)
[2023-03-20] MEDS: FORMOTEROL FUMARATE 20 MCG/2 ML NEBU INHALATION SCH (20:45)
[2023-03-20] MEDS: SENNOSIDES-DOCUSATE SODIUM 1 EACH TAB PO SCH (23:07)
[2023-03-21] MEDS: PANTOPRAZOLE 40 MG TABLET PO SCH (06:20)
[2023-03-21] MEDS: methylPREDNISolone SOD SUCCI 125 MG/2 ML VIAL IV SCH ×4 (06:20→22:12)
[2023-03-21] MEDS: ENOXAPARIN 40 MG/0.4 ML SYRINGE SQ SCH (09:00)
[2023-03-21] MEDS: NICOTINE 21MG/24HR PATCH TRANSDERM SCH (09:00)
[2023-03-21] MEDS: CEFDINIR 300 MG CAP PO SCH (09:00)
[2023-03-21] MEDS: guaiFENesin 600 MG TABLET.ER PO SCH ×4 (09:00→22:12)
[2023-03-21] MEDS: IPRATROPIUM-ALBUTEROL 3 ML NEB INHALATION SCH ×4 (09:29→21:31)
[2023-03-21] MEDS: FORMOTEROL FUMARATE 20 MCG/2 ML NEBU INHALATION SCH ×2 (09:35→21:31)
[2023-03-21] MEDS: MULTIVITAMINS, THERA 1 EACH TAB PO SCH (12:21)
[2023-03-21] MEDS: CYANOCOBALAMIN 500 MCG TAB PO SCH (12:21)
--- NOTE | 2023-03-21 13:35 | P.PN ---
Progress Note - Text Progress Note Date: 03/21/23 Chief Complaint: Short of breath This is a pleasant 82-year-old patient who follows with Dr. Aleman. Chronic stable medical conditions include hypertension, hyperlipidemia, osteoarthritis, hiatal hernia, lung cancer was treated with chemotherapy and radiation treatment.-Has been for 2 years ago has been cancer free. Does follow with Dr. Neal. Patient long-standing smoker. Presents with progressive worsening short of breath. Some wheezing. Some cough. Not able to expectorate. Had a fever about 5 days ago. Appetite is fair. Chronic leg bilateral edema that goes up in the morning. . Patient at home use a half liters of oxygen. A bit tired and rundown. 03/21/2023: Sitting up in a recliner. Short of breath. Congested cough. Check sticks or did show basilar infiltrate. We'll start IV cefepime. Tired. Active Medications Acetaminophen (Acetaminophen Tab 325 Mg Tab) 650 mg PO Q4HR PRN PRN Reason: Mild Pain or Fever > 100.5 Last Admin: 03/21/23 06:21 Dose: 650 mg Hydrocodone Bitart/Acetaminophen (Hydrocodone/Apap 5-325mg 1 Each Tab) 1 each PO Q4HR PRN PRN Reason: Pain Albuterol/Ipratropium (Ipratropium-Albuterol 3 Ml Neb) 3 ml INHALATION RT-Q2H PRN PRN Reason: Shortness Of Breath Or Wheezing Albuterol/Ipratropium (Ipratropium-Albuterol 3 Ml Neb) 3 ml INHALATION RT-QID [facility] Last Admin: 03/21/23 12:35 Dose: 3 ml Cyanocobalamin (Cyanocobalamin 500 Mcg Tab) 500 mcg PO DAILY@1200 [facility] Last Admin: 03/21/23 12:21 Dose: 500 mcg Cyclobenzaprine HCl (Cyclobenzaprine 5 Mg Tab) 5 mg PO Q8H PRN PRN Reason: Muscle Pain Enoxaparin Sodium (Enoxaparin 40 Mg/0.4 Ml Syringe) 40 mg SQ DAILY [facility] Last Admin: 03/21/23 09:00 Dose: Not Given Formoterol Fumarate (Formoterol Fumarate 20 Mcg/2 Ml Nebu) 20 mcg INHALATION RT-BID [facility] Last Admin: 03/21/23 09:35 Dose: 20 mcg Furosemide (Furosemide 20 Mg Tab) 20 mg PO BID@0900,1600 [facility] Guaifenesin (Guaifenesin 600 Mg Tablet.Er) 600 mg PO QID [facility] Last Admin: 03/21/23 12:21 Dose: 600 mg Methylprednisolone Sodium Succinate (Methylprednisolone Sod Succi 125 Mg/2 Ml Vial) 60 mg IV Q6HR [facility] Last Admin: 03/21/23 06:20 Dose: 60 mg Montelukast Sodium (Montelukast 10 Mg Tab) 10 mg PO DAILY PRN PRN Reason: Allergy Symptoms Multivitamins (Multivitamins, Thera 1 Each Tab) 1 each PO DAILY@1200 [facility] Last Admin: 03/21/23 12:21 Dose: 1 each Naloxone HCl (Naloxone 0.4 Mg/Ml 1 Ml Vial) 0.2 mg IVP Q2M PRN PRN Reason: Opioid Reversal Nicotine (Nicotine 21mg/24hr Patch) 1 patch TRANSDERM DAILY [facility] Last Admin: 03/21/23 09:00 Dose: 1 patch Pantoprazole Sodium (Pantoprazole 40 Mg Tablet) 40 mg PO AC-BRKFST [facility] Last Admin: 03/21/23 06:20 Dose: 40 mg Senna/Docusate Sodium (Sennosides-Docusate Sodium 1 Each Tab) 1 each PO HS [facility] Last Admin: 03/20/23 23:07 Dose: 1 each Social history: Smoking a pack and half for close to 67 years. Was drinking 4-5 beers a day previously. Lives alone. Home walks into half liters. Physical examination: VITAL SIGNS: 98, 92, 19, 140 / 82, 93% on 4 L GENERAL: Up in a recliner, short of breath, tired EYES: Pupils equal. Conjunctiva normal. HEENT: External appearance of nose and ears normal, oral cavity grossly normal. NECK: JVD not raised; masses not palpable. HEART: First and second heart sounds are normal; no edema. LUNGS: Respiratory rate increased, diminished breath sounds prolonged expiration-basal crackles ABDOMEN: Soft, nontender, liver spleen not palpable, no masses palpable. PSYCH: Alert and oriented x3; mood and affect a bit anxiousl. MUSCULOSKELETAL:No Clubbing/cyanosis;muscles-grossly intact. OA INVESTIGATIONS, reviewed in the clinical context: 03/20/2023: White count 10.6 hemoglobin 11.5 sodium 134 potassium 5.2 creatinine 0.81 proBNP 1280 Chest x-ray film personally reviewed by -jo infiltrates Assessment and plan: -Acute severe COPD exacerbation in a current smoker along with pneumonia: Slow to respond DuoNeb 4 times a day. IV Solu-Medrol. Nebulized Pulmicort. Nebulized Perforomist. Mucinex -Basilar pneumonia suspect gram-negative organism Starts IV cefepime -Acute hypoxic respiratory failure from COPD exacerbation Supplement oxygen -Chronic hypoxic respiratory failure from COPD Use 2-1/2 liters of walks and at home -Chronic nicotine dependence, cigarette smoker Nicotine patch -GERD Omeprazole Start IV cefepime. Other medications to continue. Check pro calcitonin. Past Medical History Past Medical History: Cancer, COPD, Deep Vein Thrombosis (DVT), Hyperlipidemia, Hypertension, Osteoarthritis (OA) Additional Past Medical History / Comment(s): hiatal hernia, constipation, kidney cancer, lung cancer(tx with radiation), hx skin cancer History of Any Multi-Drug Resistant Organisms: None Reported Past Surgical History: Cholecystectomy, Hernia Repair, Hysterectomy, Orthopedic Surgery Additional Past Surgical History / Comment(s): left knee surgery for torn ligament, ovarian cyst removed; bilat. big toenails removed, left nephrectomy, christy cataracts Past Anesthesia/Blood Transfusion Reactions: No Reported Reaction Past Psychological History: Anxiety Smoking Status: Current every day smoker
[2023-03-21] MEDS ORDERED: CEFEPIME 1 GM in SODIUM CHLORIDE 0.9% 50 ML IVPB SCH (13:45)
[2023-03-21 13:56] LABS: African American GFR (CKD) 69 (>60 ml/min/1.73 sqM); Anion Gap 14 mmol/L; Blood Urea Nitrogen 29 mg/dL (7-17); Calcium 9.4 mg/dL (8.4-10.2); Carbon Dioxide 22 mmol/L (22-30); Chloride 99 mmol/L (98-107); Glucose 257 mg/dL (74-99); Non-African American GFR(CKD) 60 (>60 ml/min/1.73 sqM); Potassium 4.9 mmol/L (3.5-5.1); Sodium 135 mmol/L (137-145)
--- NOTE | 2023-03-21 14:43 | P.CNPUL ---
History of Present Illness Consult date: 03/21/23 Requesting physician: Jonas Muller Reason for consult: dyspnea, COPD Chief complaint: Shortness of breath History of present illness: This is a pleasant 82-year-old female patient with a history of lung cancer approximately 3 years ago and was treated with chemotherapy and radiation therapy. She had also been on immunotherapy for approximate 5 months. She has chronic and ongoing tobacco dependence. She was transferred here from [facility] yesterday for a COPD exacerbation. She was having increasing oxygen requirements. She has home oxygen usually at 2-2-1/2 L and required 4 L to maintain O2 saturations in the 90s. Chest x-ray revealed cardiomegaly with some pulmonary vascular congestion and bilateral pleural effusions. White count 10.6. Hemoglobin 11.5. Platelets 316. Sodium 135. Potassium 4.9. Bicarb 22. BUN 29. Creatinine 0.91 glucose 257. ProBNP 1280. She is seen today in consultation on the regular medical floor. She is currently sitting up in bed. Awake and alert in no acute distress. Currently maintaining O2 saturations in the 90s on 4 L/m per nasal cannula. She's afebrile. Hemodynamically stable. Review of Systems REVIEW OF SYSTEMS: CONSTITUTIONAL: Denies any recent significant weight loss or weight gain. EYES: Denies change in vision. EARS, NOSE, MOUTH, THROAT: Denies headaches, denies sore throat. CARDIOVASCULAR: Denies chest pain, palpitations or syncopal episodes. RESPIRATORY: Positive for shortness of breath, cough, congestion no hemoptysis. GASTROINTESTINAL: Denies change in appetite, denies abdominal pain GENITOURINARY: Denies hematuria, denies infections. MUSKULOSKELETAL: Denies pain, denies swelling. INTEGUMENTARY: Denies rash, denies eczema. NEUROLOGICAL: Denies recent memory loss, no recent seizure activity. PSYCHIATRIC: Denies anxiety, denies depression. HEMATOLOGIC/LYMPHATIC: Denies anemia, denies enlarged lymph nodes. Past Medical History Past Medical History: Cancer, COPD, Deep Vein Thrombosis (DVT), Hyperlipidemia, Hypertension, Osteoarthritis (OA) Additional Past Medical History / Comment(s): hiatal hernia, constipation, kidney cancer, lung cancer(tx with radiation), hx skin cancer History of Any Multi-Drug Resistant Organisms: None Reported Past Surgical History: Cholecystectomy, Hernia Repair, Hysterectomy, Orthopedic Surgery Additional Past Surgical History / Comment(s): left knee surgery for torn ligament, ovarian cyst removed; bilat. big toenails removed, left nephrectomy, christy cataracts Past Anesthesia/Blood Transfusion Reactions: No Reported Reaction Past Psychological History: Anxiety Additional Psychological History / Comment(s): . Smoking Status: Current every day smoker Past Alcohol Use History: None Reported Additional Past Alcohol Use History / Comment(s): has smoked over 1ppd for about 60 years, now down to 1/2 PPD Past Drug Use History: None Reported - Past Family History Sister(s) Family Medical History: Cancer Additional Family Medical History / Comment(s): breast Medications and Allergies Home Medications Medication Instructions Recorded Confirmed Type Cholecalciferol (Vitamin D3) 50 mcg PO DAILY 05/04/17 03/20/23 History [Vitamin D3] Cetirizine HCl [Zyrtec] 10 mg PO DAILY 01/03/20 03/20/23 History Magnesium 250 mg PO DAILY 01/03/20 03/20/23 History Acetaminophen Tab [Tylenol Tab] 1,000 mg PO Q6H PRN 11/04/20 03/20/23 History Albuterol Inhaler [Ventolin Hfa 2 puff INHALATION RT-QID PRN 11/04/20 03/20/23 History Inhaler] Budesonide/Formoterol Fumarate 2 puff INHALATION RT-BID 11/04/20 03/20/23 History [Symbicort 160-4.5 Mcg Inhaler] Cyanocobalamin [Vitamin B-12] 500 mcg PO DAILY 11/04/20 03/20/23 History Albuterol Nebulized [Ventolin 2.5 mg INHALATION RT-QID PRN 03/20/23 03/20/23 History Nebulized] Calcium Carbonate/Vitamin D3 1 cap PO DAILY 03/20/23 03/20/23 History [Calcium 600 mg-D3 10 Mcg (400 Iu)] Fluticasone Nasal Mcdade [Flonase 1 spr EA NOSTRIL DAILY 03/20/23 03/20/23 History Nasal Mcdade] Montelukast [Singulair] 10 mg PO DAILY PRN 03/20/23 03/20/23 History Multivit-Min/FA/Lycopen/Lutein 1 tab PO DAILY 03/20/23 03/20/23 History [Centrum Silver Tablet] Omeprazole 40 mg PO DAILY 03/20/23 03/20/23 History Sennosides/Docusate Sodium [Senna 1 tab PO HS 03/20/23 03/20/23 History Plus 8.6-50 mg Tablet] polyethylene glycoL 3350 [Miralax] 17 gm PO DAILY PRN 03/20/23 03/20/23 History Allergies Allergy/AdvReac Type Severity Reaction Status Date / Time adhesive tape Allergy Rash/Hives Verified 03/20/23 13:20 Penicillins Allergy Rash/Hives Verified 03/20/23 13:20 all over body amoxicillin AdvReac Rash/Hives Verified 03/20/23 13:20 all over body azithromycin AdvReac Thrush Verified 03/20/23 13:20 [From Zithromax Z-Vadim] Physical Exam Vitals: Vital Signs Temp Pulse Pulse Resp BP BP Pulse Ox 03/21/23 12:44 100 03/21/23 12:35 96 03/21/23 09:44 100 03/21/23 09:37 104 H 03/21/23 09:29 92 03/21/23 08:00 101 H 03/21/23 06:58 98 F 92 19 149/82 93 L 03/21/23 01:17 98.4 F 90 18 115/67 92 L 03/20/23 23:29 98.6 F 95 20 130/77 90 L 03/20/23 21:10 93 03/20/23 21:00 93 03/20/23 20:59 93 03/20/23 20:46 104 H 03/20/23 19:00 105 H 22 112/92 92 L 03/20/23 18:00 99 20 118/86 91 L 03/20/23 17:00 87 22 148/81 93 L 03/20/23 16:41 95 03/20/23 16:30 93 03/20/23 16:00 98 20 104/66 93 L Intake and Output 03/20/23 03/21/23 03/21/23 22:59 06:59 14:59 Other: Voiding Method Toilet # Voids 3 Weight 63.957 kg GENERAL EXAM: Alert, pleasant 82-year-old female, on 4 L nasal cannula, fairly comfortable in no apparent distress. HEAD: Normocephalic. EYES: Normal reaction of pupils, equal size. NOSE: Clear with pink turbinates. THROAT: No erythema or exudates. NECK: No masses, no JVD. CHEST: No chest wall deformity. LUNGS: Equal air entry with faint crackles in the posterior bases. CVS: S1 and S2 normal with no audible murmur, regular rhythm. ABDOMEN: No hepatosplenomegaly, normal bowel sounds, no guarding or rigidity. SPINE: No scoliosis or deformity SKIN: No rashes CENTRAL NERVOUS SYSTEM: No focal deficits, tone is normal in all 4 extremities. EXTREMITIES: There is no peripheral edema. No clubbing, no cyanosis. Peripheral pulses are intact. Results - Laboratory Findings CBC and BMP: 03/20/23 16:44 03/21/23 10:52 Abnormal lab findings: Abnormal Labs 03/20/23 03/20/23 03/21/23 16:44 16:44 10:52 Neutrophils # 10.1 H Lymphocytes # 0.2 L Sodium 134 L 135 L Potassium 5.2 H Chloride 97 L BUN 28 H 29 H Glucose 120 H 257 H AST 37 H ALT 37 H - Diagnostic Findings Chest x-ray: image reviewed Assessment and Plan Assessment: Acute on chronic hypoxemic respiratory failure secondary to acute exacerbation of COPD and fluid volume overload History of oxygen dependent chronic obstructive pulmonary disease History of lung cancer with previous chemotherapy, radiation and subsequent immunotherapy Chronic tobacco dependence Plan: The patient was seen and evaluated Chest x-ray, labs and medications reviewed Add Lasix 20 mg by mouth twice a day Continue bronchodilators, steroids Check a pro-calcitonin Check an echocardiogram Educated regarding the importance of complete smoking cessation NicoDerm patch offered We will continue to follow and make further recommendations based on her clinical status I have personally seen and examined the patient, performed the documentation and the assessment and plan as written. Number of minutes spent on the visit: 20.
[2023-03-21] MEDS: FUROSEMIDE 20 MG TAB PO SCH (17:07)
[2023-03-21] MEDS: SENNOSIDES-DOCUSATE SODIUM 1 EACH TAB PO SCH (22:12)
[2023-03-21] MEDS: CEFEPIME 2 GM in SODIUM CHLORIDE 0.9% 100 ML IVPB SCH (22:12)
[2023-03-22] MEDS: PANTOPRAZOLE 40 MG TABLET PO SCH (05:57)
[2023-03-22] MEDS: methylPREDNISolone SOD SUCCI 125 MG/2 ML VIAL IV SCH ×4 (05:57→23:00)
[2023-03-22] MEDS: guaiFENesin 600 MG TABLET.ER PO SCH ×4 (07:29→21:41)
[2023-03-22] MEDS: FUROSEMIDE 20 MG TAB PO SCH ×2 (07:29→17:08)
[2023-03-22] MEDS: FORMOTEROL FUMARATE 20 MCG/2 ML NEBU INHALATION SCH ×2 (07:29→22:30)
[2023-03-22] MEDS: CEFEPIME 2 GM in SODIUM CHLORIDE 0.9% 100 ML IVPB SCH ×2 (07:30→21:41)
[2023-03-22] MEDS: IPRATROPIUM-ALBUTEROL 3 ML NEB INHALATION SCH ×4 (07:30→22:29)
[2023-03-22] MEDS: NICOTINE 21MG/24HR PATCH TRANSDERM SCH (07:30)
[2023-03-22] MEDS: ENOXAPARIN 40 MG/0.4 ML SYRINGE SQ SCH (07:31)
[2023-03-22] MEDS: MULTIVITAMINS, THERA 1 EACH TAB PO SCH (12:23)
[2023-03-22] MEDS: CYANOCOBALAMIN 500 MCG TAB PO SCH (12:24)
[2023-03-22] MEDS ORDERED: polyethylene glycoL 3350 17 GM POWD.PACK PO PRN (12:28)
[2023-03-22] MEDS ORDERED: NON FORMULARY DRUG (Multivit-Min/Fa/Lycopen/Lutein [Centrum Silver Tablet] 1 EACH Tablet) PO SCH (12:30)
[2023-03-22] MEDS: CHOLECALCIFEROL 25 MCG (1000 IU) TABLET PO SCH (12:50)
[2023-03-22] MEDS: LORATADINE 10 MG TAB PO SCH ×2 (12:50→21:40)
[2023-03-22] MEDS: CALCIUM CARB-VIT D 500 MG-5 MCG TAB PO SCH (12:50)
--- NOTE | 2023-03-22 13:26 | P.PN ---
Subjective Progress Note Date: 03/22/23 This is a pleasant 82-year-old female patient with a history of lung cancer approximately 3 years ago and was treated with chemotherapy and radiation therapy. She had also been on immunotherapy for approximate 5 months. She has chronic and ongoing tobacco dependence. She was transferred here from [facility] yesterday for a COPD exacerbation. She was having increasing oxygen requirements. She has home oxygen usually at 2-2-1/2 L and required 4 L to maintain O2 saturations in the 90s. Chest x-ray revealed cardiomegaly with some pulmonary vascular congestion and bilateral pleural effusions. White count 10.6. Hemoglobin 11.5. Platelets 316. Sodium 135. Potassium 4.9. Bicarb 22. BUN 29. Creatinine 0.91 glucose 257. ProBNP 1280. She is seen today in consultation on the regular medical floor. She is currently sitting up in bed. Awake and alert in no acute distress. Currently maintaining O2 saturations in the 90s on 4 L/m per nasal cannula. She's afebrile. Hemodynamically stable. The patient is seen today 03/22/2023 in follow-up on the regular medical floor. She is awake and alert in no acute distress. She is doing better today compared to yesterday. Still some bronchospasm and wheezing. Occasional cough. Maintaining O2 saturation in the 90s on 3 L/m per nasal cannula. Pro-calcitonin was 0.11. She is continued on DuoNeb inhalations, Pulmicort and Perforomist inhalations, Solu-Medrol, Singulair. Remains on oral diuretics. Remains on Mucinex. Lovenox for DVT prophylaxis. Antibiotics in the form of cefepime. NicoDerm patch in place. Objective - Vital Signs Vital signs: Vital Signs Temp 97.7 F 03/22/23 06:52 Pulse 82 03/22/23 11:32 Resp 18 03/22/23 08:10 BP 154/81 03/22/23 06:52 Pulse Ox 92 L 03/22/23 07:33 FiO2 Intake & Output 03/21/23 03/22/23 03/22/23 18:59 06:59 18:59 Intake Total 580 250 Balance 580 250 Intake: Intake, IV Titration 100 Amount Cefepime 2 gm In Sodium 100 Chloride 0.9% 100 ml @ 25 mls/hr IVPB Q12HR [facility] Rx #:[id number] Oral 480 250 Other: Voiding Method Toilet Toilet Toilet # Voids 4 4 - Exam GENERAL EXAM: Alert, 82-year-old female, on 3 L nasal cannula, comfortable in no apparent distress. HEAD: Normocephalic. EYES: Normal reaction of pupils, equal size. NOSE: Clear with pink turbinates. THROAT: No erythema or exudates. NECK: No masses, no JVD. CHEST: No chest wall deformity. LUNGS: Equal air entry with faint crackles in the posterior bases, end expiratory wheeze. CVS: S1 and S2 normal with no audible murmur, regular rhythm. ABDOMEN: No hepatosplenomegaly, normal bowel sounds, no guarding or rigidity. SPINE: No scoliosis or deformity SKIN: No rashes CENTRAL NERVOUS SYSTEM: No focal deficits, tone is normal in all 4 extremities. EXTREMITIES: There is no peripheral edema. No clubbing, no cyanosis. Peripheral pulses are intact. - Labs CBC & Chem 7: 03/20/23 16:44 03/21/23 10:52 Labs: Abnormal Lab Results - Last 24 Hours (Table) 03/21/23 03/21/23 Range/Units 10:52 10:52 Sodium 135 L (137-145) mmol/L BUN 29 H (7-17) mg/dL Glucose 257 H (74-99) mg/dL Procalcitonin 0.11 H (0.02-0.09) ng/mL Assessment and Plan Assessment: Acute on chronic hypoxemic respiratory failure secondary to acute exacerbation of COPD and fluid volume overload History of oxygen dependent chronic obstructive pulmonary disease History of lung cancer with previous chemotherapy, radiation and subsequent immunotherapy Chronic tobacco dependence Plan: The patient was seen and evaluated Medications reviewed Continue the current treatment plan Again educated regarding smoking cessation NicoDerm patch in place We will continue to follow I have personally seen and examined the patient, performed the documentation and the assessment and plan as written. Number of minutes spent on the visit: 10.
--- NOTE | 2023-03-22 13:42 | P.PN ---
Progress Note - Text Progress Note Date: 03/22/23 Chief Complaint: Short of breath This is a pleasant 82-year-old patient who follows with Dr. Aleman. Chronic stable medical conditions include hypertension, hyperlipidemia, osteoarthritis, hiatal hernia, lung cancer was treated with chemotherapy and radiation treatment.-Has been for 2 years ago has been cancer free. Does follow with Dr. Neal. Patient long-standing smoker. Presents with progressive worsening short of breath. Some wheezing. Some cough. Not able to expectorate. Had a fever about 5 days ago. Appetite is fair. Chronic leg bilateral edema that goes up in the morning. . Patient at home use a half liters of oxygen. A bit tired and rundown. 03/21/2023: Sitting up in a recliner. Short of breath. Congested cough. Chest x-ray did show basilar infiltrate. We'll start IV cefepime. Tired. 03/22/2023: Congested cough. Short of breath. Sitting edge of the bed. Oral intake fair. Tired Active Medications Acetaminophen (Acetaminophen Tab 325 Mg Tab) 650 mg PO Q4HR PRN PRN Reason: Mild Pain or Fever > 100.5 Last Admin: 03/21/23 06:21 Dose: 650 mg Hydrocodone Bitart/Acetaminophen (Hydrocodone/Apap 5-325mg 1 Each Tab) 1 each PO Q4HR PRN PRN Reason: Pain Albuterol/Ipratropium (Ipratropium-Albuterol 3 Ml Neb) 3 ml INHALATION RT-Q2H PRN PRN Reason: Shortness Of Breath Or Wheezing Albuterol/Ipratropium (Ipratropium-Albuterol 3 Ml Neb) 3 ml INHALATION RT-QID [facility] Last Admin: 03/22/23 11:21 Dose: 3 ml Budesonide (Budesonide 1 Mg/2 Ml Nebu) 1 mg INHALATION RT-BID [facility] Calcium Carbonate (Calcium Carb-Vit D 500 Mg-5 Mcg Tab) 1 each PO DAILY [facility] Last Admin: 03/22/23 12:50 Dose: 1 each Cholecalciferol (Cholecalciferol 25 Mcg (1000 Iu) Tablet) 50 mcg PO DAILY [facility] Last Admin: 03/22/23 12:50 Dose: 50 mcg Cyanocobalamin (Cyanocobalamin 500 Mcg Tab) 500 mcg PO DAILY@1200 [facility] Last Admin: 03/22/23 12:24 Dose: 500 mcg Cyclobenzaprine HCl (Cyclobenzaprine 5 Mg Tab) 5 mg PO Q8H PRN PRN Reason: Muscle Pain Enoxaparin Sodium (Enoxaparin 40 Mg/0.4 Ml Syringe) 40 mg SQ DAILY [facility] Last Admin: 03/22/23 07:31 Dose: Not Given Formoterol Fumarate (Formoterol Fumarate 20 Mcg/2 Ml Nebu) 20 mcg INHALATION RT-BID [facility] Last Admin: 03/22/23 07:29 Dose: 20 mcg Furosemide (Furosemide 20 Mg Tab) 20 mg PO BID@0900,1600 [facility] Last Admin: 03/22/23 07:29 Dose: 20 mg Guaifenesin (Guaifenesin 600 Mg Tablet.Er) 600 mg PO QID [facility] Last Admin: 03/22/23 12:23 Dose: 600 mg Cefepime HCl 2 gm/ Sodium (Chloride) 100 mls @ 25 mls/hr IVPB Q12HR [facility] Last Admin: 03/22/23 07:30 Dose: 25 mls/hr Loratadine (Loratadine 10 Mg Tab) 5 mg PO Q12HR [facility] Last Admin: 03/22/23 12:50 Dose: 5 mg Methylprednisolone Sodium Succinate (Methylprednisolone Sod Succi 125 Mg/2 Ml Vial) 60 mg IV Q6HR [facility] Last Admin: 03/22/23 13:07 Dose: 60 mg Montelukast Sodium (Montelukast 10 Mg Tab) 10 mg PO DAILY PRN PRN Reason: Allergy Symptoms Multivitamins (Multivitamins, Thera 1 Each Tab) 1 each PO DAILY@1200 [facility] Last Admin: 03/22/23 12:23 Dose: 1 each Naloxone HCl (Naloxone 0.4 Mg/Ml 1 Ml Vial) 0.2 mg IVP Q2M PRN PRN Reason: Opioid Reversal Nicotine (Nicotine 21mg/24hr Patch) 1 patch TRANSDERM DAILY [facility] Last Admin: 03/22/23 07:30 Dose: Not Given Pantoprazole Sodium (Pantoprazole 40 Mg Tablet) 40 mg PO AC-BRKFST [facility] Last Admin: 03/22/23 05:57 Dose: 40 mg Polyethylene Glycol (Polyethylene Glycol 3350 17 Gm Powd.Pack) 17 gm PO DAILY PRN PRN Reason: Constipation Senna/Docusate Sodium (Sennosides-Docusate Sodium 1 Each Tab) 1 each PO HS [facility] Last Admin: 03/21/23 22:12 Dose: 1 each Social history: Smoking a pack and half for close to 67 years. Was drinking 4-5 beers a day previously. Lives alone. Home walks into half liters. Physical examination: VITAL SIGNS: 97.7, 88, 17, 154/81, 90% on 3 L GENERAL: At the edge of the bed, short of breath, tired EYES: Pupils equal. Conjunctiva normal. HEENT: External appearance of nose and ears normal, oral cavity grossly normal. NECK: JVD not raised; masses not palpable. HEART: First and second heart sounds are normal; no edema. LUNGS: Respiratory rate increased, diminished breath sounds prolonged occasional crackles ABDOMEN: Soft, nontender, liver spleen not palpable, no masses palpable. PSYCH: Alert and oriented x3; mood and affect a bit anxiousl. MUSCULOSKELETAL:No Clubbing/cyanosis;muscles-grossly intact. OA INVESTIGATIONS, reviewed in the clinical context: Procalcitonin 0.11 03/20/2023: White count 10.6 hemoglobin 11.5 sodium 134 potassium 5.2 creatinine 0.81 proBNP 1280 Chest x-ray film personally reviewed by ky-basilar infiltrates Assessment and plan: -Acute severe COPD exacerbation in a current smoker along with pneumonia: Slow to respond DuoNeb 4 times a day. IV Solu-Medrol. Nebulized Pulmicort. Nebulized Perforomist. Mucinex -Basilar pneumonia suspect gram-negative organism: Slow to respond IV cefepime -Acute hypoxic respiratory failure from COPD exacerbation Supplement oxygen -Chronic hypoxic respiratory failure from COPD Use 2-1/2 liters of walks and at home -Chronic nicotine dependence, cigarette smoker Nicotine patch -GERD Omeprazole Continue IV cefepime. Other medications. Discussed with patient. Past Medical History Past Medical History: Cancer, COPD, Deep Vein Thrombosis (DVT), Hyperlipidemia, Hypertension, Osteoarthritis (OA) Additional Past Medical History / Comment(s): hiatal hernia, constipation, kidney cancer, lung cancer(tx with radiation), hx skin cancer History of Any Multi-Drug Resistant Organisms: None Reported Past Surgical History: Cholecystectomy, Hernia Repair, Hysterectomy, Orthopedic Surgery Additional Past Surgical History / Comment(s): left knee surgery for torn ligament, ovarian cyst removed; bilat. big toenails removed, left nephrectomy, christy cataracts Past Anesthesia/Blood Transfusion Reactions: No Reported Reaction Past Psychological History: Anxiety Smoking Status: Current every day smoker
[2023-03-22] MEDS: SENNOSIDES-DOCUSATE SODIUM 1 EACH TAB PO SCH (21:40)
[2023-03-22] MEDS: BUDESONIDE 1 MG/2 ML NEBU INHALATION SCH (22:30)
[2023-03-23] MEDS: PANTOPRAZOLE 40 MG TABLET PO SCH (05:14)
[2023-03-23] MEDS: methylPREDNISolone SOD SUCCI 125 MG/2 ML VIAL IV SCH ×3 (05:14→19:05)
[2023-03-23] MEDS: FORMOTEROL FUMARATE 20 MCG/2 ML NEBU INHALATION SCH ×2 (07:31→21:27)
[2023-03-23] MEDS: IPRATROPIUM-ALBUTEROL 3 ML NEB INHALATION SCH ×4 (07:31→21:27)
[2023-03-23] MEDS: BUDESONIDE 1 MG/2 ML NEBU INHALATION SCH ×2 (07:31→21:28)
[2023-03-23] MEDS: CEFEPIME 2 GM in SODIUM CHLORIDE 0.9% 100 ML IVPB SCH ×2 (09:54→21:49)
[2023-03-23] MEDS: FUROSEMIDE 20 MG TAB PO SCH ×2 (09:55→15:52)
[2023-03-23] MEDS: CALCIUM CARB-VIT D 500 MG-5 MCG TAB PO SCH (09:55)
[2023-03-23] MEDS: guaiFENesin 600 MG TABLET.ER PO SCH ×4 (09:55→21:48)
[2023-03-23] MEDS: LORATADINE 10 MG TAB PO SCH ×2 (09:55→21:48)
[2023-03-23] MEDS: NICOTINE 21MG/24HR PATCH TRANSDERM SCH ×2 (09:55→10:05)
[2023-03-23] MEDS: ENOXAPARIN 40 MG/0.4 ML SYRINGE SQ SCH (09:55)
[2023-03-23] MEDS: CHOLECALCIFEROL 25 MCG (1000 IU) TABLET PO SCH (09:55)
[2023-03-23] MEDS ORDERED: bisacodyL 10 MG SUPP RECTAL STA (11:10)
--- NOTE | 2023-03-23 12:34 | CA ---
Transthoracic Echo Report Name: Britta Vallejo Age: 82 Gender: F : 1940 Exam Date: 03/23/2023 07:51 Exam Location: [facility] Ht (in): 64 Wt (lb): 141 Ordering Physician: Lex Muller MD Attending/Referring Phys: Meters Superintendent Veronica Lund RDCS Procedure CPT: Indications: chf Cardiac Hx: Technical Quality: Fair Contrast 1: Total Dose (mL): Contrast 2: Total Dose (mL): MEASUREMENTS (Male / Female) Normal Values 2D ECHO LV Diastolic Diameter PLAX 3.8 cm 4.2 - 5.9 / 3.9 - 5.3 cm LV Systolic Diameter PLAX 2.0 cm IVS Diastolic Thickness 1.5 cm 0.6 - 1.0 / 0.6 - 0.9 cm LVPW Diastolic Thickness 1.3 cm 0.6 - 1.0 / 0.6 - 0.9 cm LV Relative Wall Thickness 0.7 RV Internal Dim ED PLAX 3.4 cm LA Volume 60.6 cm??? 18 - 58 / 22 - 52 cm??? LA Volume Index 35.5 cm???/m??? 16 - 28 cm???/m??? M-MODE Aortic Root Diameter MM 3.7 cm LA Systolic Diameter MM 5.1 cm LA Ao Ratio MM 1.4 AV Cusp Separation MM 0.6 cm DOPPLER AV Peak Velocity 217.9 cm/s AV Peak Gradient 19.0 mmHg AV Mean Velocity 156.7 cm/s AV Mean Gradient 10.9 mmHg AV Velocity Time Integral 45.3 cm AI Peak Velocity 248.5 cm/s AI Peak Gradient 24.7 mmHg AI Pressure Half Time 924.6 ms LVOT Peak Velocity 98.1 cm/s LVOT Peak Gradient 3.9 mmHg LVOT Velocity Time Integral 19.3 cm MV Area PHT 3.1 cm??? Mitral E Point Velocity 81.9 cm/s Mitral A Point Velocity 133.4 cm/s Mitral E to A Ratio 0.6 MV Deceleration Time 242.3 ms MV E' Velocity 4.3 cm/s Mitral E to MV E' Ratio 18.9 FINDINGS Left Ventricle Moderately increased left ventricular wall thickness. Left ventricular cavity size normal. Normal left ventricular systolic function with no obvious regional wall motion abnormalities. Right Ventricle Moderate right ventricular dilatation. Right ventricular systolic pressure within normal limits. Right Atrium Moderate right atrial dilatation. Left Atrium Mildly increased left atrial volume. Mildly increased left atrial area. Mitral Valve Structurally normal mitral valve. Mitral valve thickened. Mild mitral annular calcification. Mild mitral regurgitation. Aortic Valve Trileaflet aortic valve. Mild aortic regurgitation. Thickened aortic valve without stenosis. Tricuspid Valve Structurally normal tricuspid valve. Trace to mild tricuspid regurgitation. Pulmonic Valve Trace to mild pulmonic regurgitation. Pericardium No pericardial effusion. Aorta Normal size aortic root and proximal ascending aorta. CONCLUSIONS Left ventricular hypertrophy with normal LV function Dilated right ventricle Mild mitral aortic and tricuspid regurgitation Previewed by: Dr. Jaron Santiago MD (Electronically Signed) Final Date: 23 March 2023 12:33
[2023-03-23] MEDS: CYANOCOBALAMIN 500 MCG TAB PO SCH (13:57)
[2023-03-23] MEDS: MULTIVITAMINS, THERA 1 EACH TAB PO SCH (13:57)
[2023-03-23] MEDS: PSYLLIUM HUSK 100% 6 GM PACKET PO SCH (13:58)
--- NOTE | 2023-03-23 14:51 | P.PN ---
Subjective Progress Note Date: 03/23/23 Principal diagnosis: COPD exacerbation. This is a pleasant 82-year-old female patient with a history of lung cancer approximately 3 years ago and was treated with chemotherapy and radiation therapy. She had also been on immunotherapy for approximate 5 months. She has chronic and ongoing tobacco dependence. She was transferred here from [facility] yesterday for a COPD exacerbation. She was having increasing oxygen requirements. She has home oxygen usually at 2-2-1/2 L and required 4 L to maintain O2 saturations in the 90s. Chest x-ray revealed cardiomegaly with some pulmonary vascular congestion and bilateral pleural effusions. White count 10.6. Hemoglobin 11.5. Platelets 316. Sodium 135. Potassium 4.9. Bicarb 22. BUN 29. Creatinine 0.91 glucose 257. ProBNP 1280. She is seen today in consultation on the regular medical floor. She is currently sitting up in bed. Awake and alert in no acute distress. Currently maintaining O2 saturations in the 90s on 4 L/m per nasal cannula. She's afebrile. Hemodynamically stable. The patient is seen today 03/22/2023 in follow-up on the regular medical floor. She is awake and alert in no acute distress. She is doing better today compared to yesterday. Still some bronchospasm and wheezing. Occasional cough. Maintaining O2 saturation in the 90s on 3 L/m per nasal cannula. Pro-calcitonin was 0.11. She is continued on DuoNeb inhalations, Pulmicort and Perforomist inhalations, Solu-Medrol, Singulair. Remains on oral diuretics. Remains on Mucinex. Lovenox for DVT prophylaxis. Antibiotics in the form of cefepime. NicoDerm patch in place. Progress note dated 03/23/2023. The patient is seen today in room 472. The patient is currently on 3 L of oxygen. She is receiving cefepime. Her pro-calcitonin level is mildly elevated at 0.11. Her BNP is elevated, and she may have morbid CHF pattern than actual pneumonia. She appears relatively comfortable. She continues on doing nebs, Pulmicort, performance, Solu-Medrol, etc. She also remains on diuretics. The patient feels a bit better today than she did yesterday. She sitting on the bed, in no distress. No new labs today. Objective - Vital Signs Vital signs: Vital Signs Temp 98.3 F 03/23/23 08:15 Pulse 80 03/23/23 12:13 Resp 19 03/23/23 08:15 BP 142/88 03/23/23 08:15 Pulse Ox 90 L 03/23/23 08:15 FiO2 Intake & Output 03/22/23 03/23/23 03/23/23 18:59 06:59 18:59 Intake Total 250 550 Balance 250 550 Intake: Oral 250 550 Other: Voiding Method Toilet Toilet Toilet # Voids 5 4 - Exam No acute distress, oriented 3. Currently, the patient's on 3 L. No respiratory distress. HEENT examination is grossly unremarkable. Mucous membranes are moist. No oral lesions. Neck supple. Full range of motion. No adenopathy thyromegaly or neck vein distention. Cardiovascular examination reveals regular rhythm rate. S1-S2 normal. No S3 or S4. No discernible murmur noted. Lungs reveal bibasilar crackles. Breath sounds equal bilaterally. No wheezes or rhonchi. Saturations are 94% on 3 L. Abdomen soft bowel sounds are heard. No masses or tenderness. Extremities are intact. No cyanosis clubbing or edema. Skin is without rash or lesion. Neurologic examination is brief but nonfocal. - Labs CBC & Chem 7: 03/20/23 16:44 03/21/23 10:52 Assessment and Plan Assessment: Acute on chronic hypoxemic respiratory failure secondary to acute exacerbation of COPD and fluid volume overload/CHF. History of oxygen dependent chronic obstructive pulmonary disease. History of lung cancer with previous chemotherapy, radiation and subsequent immunotherapy. Chronic tobacco dependence. Plan: Plan dated 03/23/2023. The patient is seen today in room 472. She continues on oxygen at 3 L. Labs, x-rays, and medications are reviewed. The patient continues on appropriate medications including antibiotics, breathing treatments, and Solu-Medrol. She also continues on formoterol, and budesonide. We will continue to follow, make recommendations along the way. Prognosis is guarded. The patient is counseled about the importance of smoking cessation. Time with Patient: Less than 30
--- NOTE | 2023-03-23 15:09 | P.PN ---
Progress Note - Text Progress Note Date: 03/23/23 Chief Complaint: Short of breath This is a pleasant 82-year-old patient who follows with Dr. Aleman. Chronic stable medical conditions include hypertension, hyperlipidemia, osteoarthritis, hiatal hernia, lung cancer was treated with chemotherapy and radiation treatment.-Has been for 2 years ago has been cancer free. Does follow with Dr. Neal. Patient long-standing smoker. Presents with progressive worsening short of breath. Some wheezing. Some cough. Not able to expectorate. Had a fever about 5 days ago. Appetite is fair. Chronic leg bilateral edema that goes up in the morning. . Patient at home use a half liters of oxygen. A bit tired and rundown. 03/21/2023: Sitting up in a recliner. Short of breath. Congested cough. Chest x-ray did show basilar infiltrate. We'll start IV cefepime. Tired. 03/22/2023: Congested cough. Short of breath. Sitting edge of the bed. Oral intake fair. Tired 03/23/2023: Short of breath. Decreased congested cough. Wheezing. Eating fair. Slow to respond. Patient has seen Dr. Nathaniel Santiago in 2022.. Was told has no CHF. 2-D echo showing normal LV function. Active Medications Acetaminophen (Acetaminophen Tab 325 Mg Tab) 650 mg PO Q4HR PRN PRN Reason: Mild Pain or Fever > 100.5 Last Admin: 03/21/23 06:21 Dose: 650 mg Hydrocodone Bitart/Acetaminophen (Hydrocodone/Apap 5-325mg 1 Each Tab) 1 each PO Q4HR PRN PRN Reason: Pain Albuterol/Ipratropium (Ipratropium-Albuterol 3 Ml Neb) 3 ml INHALATION RT-Q2H PRN PRN Reason: Shortness Of Breath Or Wheezing Albuterol/Ipratropium (Ipratropium-Albuterol 3 Ml Neb) 3 ml INHALATION RT-QID [facility] Last Admin: 03/23/23 11:57 Dose: 3 ml Budesonide (Budesonide 1 Mg/2 Ml Nebu) 1 mg INHALATION RT-BID [facility] Last Admin: 03/23/23 07:31 Dose: 1 mg Calcium Carbonate (Calcium Carb-Vit D 500 Mg-5 Mcg Tab) 1 each PO DAILY [facility] Last Admin: 03/23/23 09:55 Dose: 1 each Cholecalciferol (Cholecalciferol 25 Mcg (1000 Iu) Tablet) 50 mcg PO DAILY [facility] Last Admin: 03/23/23 09:55 Dose: 50 mcg Cyanocobalamin (Cyanocobalamin 500 Mcg Tab) 500 mcg PO DAILY@1200 [facility] Last Admin: 03/23/23 13:57 Dose: 500 mcg Cyclobenzaprine HCl (Cyclobenzaprine 5 Mg Tab) 5 mg PO Q8H PRN PRN Reason: Muscle Pain Enoxaparin Sodium (Enoxaparin 40 Mg/0.4 Ml Syringe) 40 mg SQ DAILY [facility] Last Admin: 03/23/23 09:55 Dose: Not Given Formoterol Fumarate (Formoterol Fumarate 20 Mcg/2 Ml Nebu) 20 mcg INHALATION RT-BID [facility] Furosemide (Furosemide 20 Mg Tab) 20 mg PO BID@0900,1600 [facility] Last Admin: 03/23/23 09:55 Dose: 20 mg Guaifenesin (Guaifenesin 600 Mg Tablet.Er) 600 mg PO QID [facility] Last Admin: 03/23/23 13:57 Dose: 600 mg Cefepime HCl 2 gm/ Sodium (Chloride) 100 mls @ 25 mls/hr IVPB Q12HR [facility] Last Admin: 03/23/23 09:54 Dose: 25 mls/hr Loratadine (Loratadine 10 Mg Tab) 5 mg PO Q12HR [facility] Last Admin: 03/23/23 09:55 Dose: 5 mg Methylprednisolone Sodium Succinate (Methylprednisolone Sod Succi 125 Mg/2 Ml Vial) 60 mg IV Q6HR [facility] Last Admin: 03/23/23 13:57 Dose: 60 mg Montelukast Sodium (Montelukast 10 Mg Tab) 10 mg PO DAILY PRN PRN Reason: Allergy Symptoms Multivitamins (Multivitamins, Thera 1 Each Tab) 1 each PO DAILY@1200 [facility] Last Admin: 03/23/23 13:57 Dose: 1 each Naloxone HCl (Naloxone 0.4 Mg/Ml 1 Ml Vial) 0.2 mg IVP Q2M PRN PRN Reason: Opioid Reversal Nicotine (Nicotine 21mg/24hr Patch) 1 patch TRANSDERM DAILY [facility] Last Admin: 03/23/23 10:05 Dose: Not Given Pantoprazole Sodium (Pantoprazole 40 Mg Tablet) 40 mg PO AC-BRKFST [facility] Last Admin: 03/23/23 05:14 Dose: 40 mg Polyethylene Glycol (Polyethylene Glycol 3350 17 Gm Powd.Pack) 17 gm PO DAILY PRN PRN Reason: Constipation Last Admin: 03/22/23 17:53 Dose: 17 gm Psyllium Hydrophilic Mucilloid (Psyllium Husk 100% 6 Gm Packet) 6 gm PO DAILY [facility] Last Admin: 03/23/23 13:58 Dose: 6 gm Senna/Docusate Sodium (Sennosides-Docusate Sodium 1 Each Tab) 1 each PO HS [facility] Last Admin: 03/22/23 21:40 Dose: 1 each Social history: Smoking a pack and half for close to 67 years. Was drinking 4-5 beers a day previously. Lives alone. Home walks into half liters. Physical examination: VITAL SIGNS: 98.3, 110, 19, 142/88, 90% on 3 L GENERAL: At the edge of the bed, short of breath, tired EYES: Pupils equal. Conjunctiva normal. HEENT: External appearance of nose and ears normal, oral cavity grossly normal. NECK: JVD not raised; masses not palpable. HEART: First and second heart sounds are normal; no edema. LUNGS: Respiratory rate increased, diminished breath sounds, basal crackles ABDOMEN: Soft, nontender, liver spleen not palpable, no masses palpable. PSYCH: Alert and oriented x3; mood and affect a bit anxiousl. MUSCULOSKELETAL:No Clubbing/cyanosis;muscles-grossly intact. OA INVESTIGATIONS, reviewed in the clinical context: 2-D echocardiogram: Normal LV function. Moderate right ventricle right atrium dilatation. Procalcitonin 0.11 03/20/2023: White count 10.6 hemoglobin 11.5 sodium 134 potassium 5.2 creatinine 0.81 proBNP 1280 Chest x-ray film personally reviewed by me-basilar infiltrates Assessment and plan: -Acute severe COPD exacerbation in a current smoker along with pneumonia: Slow to respond DuoNeb 4 times a day. IV Solu-Medrol. Nebulized Pulmicort. Nebulized Perforomist. Mucinex -Basilar pneumonia suspect gram-negative organism: Slow to respond IV cefepime -Acute hypoxic respiratory failure from COPD exacerbation Supplement oxygen -Chronic hypoxic respiratory failure from COPD Use 2-1/2 liters of walks and at home -Chronic nicotine dependence, cigarette smoker Nicotine patch -GERD Omeprazole Continue current medications. Discussed with patient. Not ready for discharge. Past Medical History Past Medical History: Cancer, COPD, Deep Vein Thrombosis (DVT), Hyperlipidemia, Hypertension, Osteoarthritis (OA) Additional Past Medical History / Comment(s): hiatal hernia, constipation, kidney cancer, lung cancer(tx with radiation), hx skin cancer History of Any Multi-Drug Resistant Organisms: None Reported Past Surgical History: Cholecystectomy, Hernia Repair, Hysterectomy, Orthopedic Surgery Additional Past Surgical History / Comment(s): left knee surgery for torn ligament, ovarian cyst removed; bilat. big toenails removed, left nephrectomy, christy cataracts Past Anesthesia/Blood Transfusion Reactions: No Reported Reaction Past Psychological History: Anxiety Smoking Status: Current every day smoker
[2023-03-23] MEDS: SENNOSIDES-DOCUSATE SODIUM 1 EACH TAB PO SCH (21:49)
[2023-03-24] MEDS: methylPREDNISolone SOD SUCCI 125 MG/2 ML VIAL IV SCH ×3 (00:33→13:12)
[2023-03-24] MEDS: NICOTINE 21MG/24HR PATCH TRANSDERM SCH (07:08)
[2023-03-24] MEDS: ENOXAPARIN 40 MG/0.4 ML SYRINGE SQ SCH (07:08)
[2023-03-24] MEDS: PANTOPRAZOLE 40 MG TABLET PO SCH (09:02)
[2023-03-24] MEDS: FUROSEMIDE 20 MG TAB PO SCH ×2 (09:02→15:56)
[2023-03-24] MEDS: CHOLECALCIFEROL 25 MCG (1000 IU) TABLET PO SCH (09:02)
[2023-03-24] MEDS: PSYLLIUM HUSK 100% 6 GM PACKET PO SCH (09:03)
[2023-03-24] MEDS: LORATADINE 10 MG TAB PO SCH ×2 (09:03→20:57)
[2023-03-24] MEDS: guaiFENesin 600 MG TABLET.ER PO SCH ×4 (09:03→20:58)
[2023-03-24] MEDS: CEFEPIME 2 GM in SODIUM CHLORIDE 0.9% 100 ML IVPB SCH (09:03)
[2023-03-24] MEDS: CALCIUM CARB-VIT D 500 MG-5 MCG TAB PO SCH (09:03)
[2023-03-24] MEDS: FORMOTEROL FUMARATE 20 MCG/2 ML NEBU INHALATION SCH ×2 (09:19→20:15)
[2023-03-24] MEDS: IPRATROPIUM-ALBUTEROL 3 ML NEB INHALATION SCH ×5 (09:19→20:15)
[2023-03-24] MEDS: BUDESONIDE 1 MG/2 ML NEBU INHALATION SCH ×2 (09:19→20:15)
[2023-03-24] MEDS: MULTIVITAMINS, THERA 1 EACH TAB PO SCH (12:28)
[2023-03-24] MEDS: CYANOCOBALAMIN 500 MCG TAB PO SCH (12:28)
--- NOTE | 2023-03-24 13:31 | P.PN ---
Progress Note - Text Progress Note Date: 03/24/23 Chief Complaint: Short of breath This is a pleasant 82-year-old patient who follows with Dr. Aleman. Chronic stable medical conditions include hypertension, hyperlipidemia, osteoarthritis, hiatal hernia, lung cancer was treated with chemotherapy and radiation treatment.-Has been for 2 years ago has been cancer free. Does follow with Dr. Neal. Patient long-standing smoker. Presents with progressive worsening short of breath. Some wheezing. Some cough. Not able to expectorate. Had a fever about 5 days ago. Appetite is fair. Chronic leg bilateral edema that goes up in the morning. . Patient at home use a half liters of oxygen. A bit tired and rundown. 03/21/2023: Sitting up in a recliner. Short of breath. Congested cough. Chest x-ray did show basilar infiltrate. We'll start IV cefepime. Tired. 03/22/2023: Congested cough. Short of breath. Sitting edge of the bed. Oral intake fair. Tired 03/23/2023: Short of breath. Decreased congested cough. Wheezing. Eating fair. Slow to respond. Patient has seen Dr. Nathaniel Santiago in 2022.. Was told has no CHF. 2-D echo showing normal LV function. 03/24/2023: Some shortness of breath and wheezing. No fever. Change IV cefepime over to Omnicef. Otherwise steroids bronchodilators continue. Discussed with the patient. Follow with pulmonary. Patient previously had a left nephrectomy for localized cancer. Social history: Smoking a pack and half for close to 67 years. Was drinking 4-5 beers a day previously. Lives alone. Home walks into half liters. Physical examination: VITAL SIGNS: 98.3, 110, 19, 142/88, 90% on 3 L GENERAL: At the edge of the bed, short of breath, tired EYES: Pupils equal. Conjunctiva normal. HEENT: External appearance of nose and ears normal, oral cavity grossly normal. NECK: JVD not raised; masses not palpable. HEART: First and second heart sounds are normal; no edema. LUNGS: Respiratory rate increased, diminished breath sounds, basal crackles ABDOMEN: Soft, nontender, liver spleen not palpable, no masses palpable. PSYCH: Alert and oriented x3; mood and affect a bit anxiousl. MUSCULOSKELETAL:No Clubbing/cyanosis;muscles-grossly intact. OA INVESTIGATIONS, reviewed in the clinical context: 2-D echocardiogram: Normal LV function. Moderate right ventricle right atrium dilatation. Procalcitonin 0.11 03/20/2023: White count 10.6 hemoglobin 11.5 sodium 134 potassium 5.2 creatinine 0.81 proBNP 1280 Chest x-ray film personally reviewed by me-jo infiltrates Assessment and plan: -Acute severe COPD exacerbation in a current smoker along with pneumonia: Slow to respond DuoNeb 4 times a day. IV Solu-Medrol. Nebulized Pulmicort. Nebulized Perforomist. Mucinex -Basilar pneumonia suspect gram-negative organism: Some improvement IV cefepime IV and changed to Omnicef. 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 -GERD Omeprazole Change IV cefepime to Omnicef. Other medications to continue. Discussed with patient. Past Medical History Past Medical History: Cancer, COPD, Deep Vein Thrombosis (DVT), Hyperlipidemia, Hypertension, Osteoarthritis (OA) Additional Past Medical History / Comment(s): hiatal hernia, constipation, kidney cancer, lung cancer(tx with radiation), hx skin cancer History of Any Multi-Drug Resistant Organisms: None Reported Past Surgical History: Cholecystectomy, Hernia Repair, Hysterectomy, Orthopedic Surgery Additional Past Surgical History / Comment(s): left knee surgery for torn ligament, ovarian cyst removed; bilat. big toenails removed, left nephrectomy, christy cataracts Past Anesthesia/Blood Transfusion Reactions: No Reported Reaction Past Psychological History: Anxiety Smoking Status: Current every day smoker
--- NOTE | 2023-03-24 16:12 | P.PN ---
Subjective Progress Note Date: 03/24/23 This is a pleasant 82-year-old female patient with a history of lung cancer approximately 3 years ago and was treated with chemotherapy and radiation therapy. She had also been on immunotherapy for approximate 5 months. She has chronic and ongoing tobacco dependence. She was transferred here from [facility] yesterday for a COPD exacerbation. She was having increasing oxygen requirements. She has home oxygen usually at 2-2-1/2 L and required 4 L to maintain O2 saturations in the 90s. Chest x-ray revealed cardiomegaly with some pulmonary vascular congestion and bilateral pleural effusions. White count 10.6. Hemoglobin 11.5. Platelets 316. Sodium 135. Potassium 4.9. Bicarb 22. BUN 29. Creatinine 0.91 glucose 257. ProBNP 1280. She is seen today in consultation on the regular medical floor. She is currently sitting up in bed. Awake and alert in no acute distress. Currently maintaining O2 saturations in the 90s on 4 L/m per nasal cannula. She's afebrile. Hemodynamically stable. The patient is seen today 03/22/2023 in follow-up on the regular medical floor. She is awake and alert in no acute distress. She is doing better today compared to yesterday. Still some bronchospasm and wheezing. Occasional cough. Maintaining O2 saturation in the 90s on 3 L/m per nasal cannula. Pro-calcitonin was 0.11. She is continued on DuoNeb inhalations, Pulmicort and Perforomist inhalations, Solu-Medrol, Singulair. Remains on oral diuretics. Remains on Mucinex. Lovenox for DVT prophylaxis. Antibiotics in the form of cefepime. NicoDerm patch in place. Progress note dated 03/23/2023. The patient is seen today in room 472. The patient is currently on 3 L of oxygen. She is receiving cefepime. Her pro-calcitonin level is mildly elevated at 0.11. Her BNP is elevated, and she may have morbid CHF pattern than actual pneumonia. She appears relatively comfortable. She continues on doing nebs, Pulmicort, performance, Solu-Medrol, etc. She also remains on diuretics. The patient feels a bit better today than she did yesterday. She sitting on the bed, in no distress. No new labs today. The patient is seen today 03/24/2023 in follow-up on the regular medical floor. She is currently sitting up in a chair at the bedside. Awake and alert in no acute distress. Denies any worsening shortness of breath, cough or congestion. No fever or chills. Maintaining good O2 saturations in the 90s on 3 L per nasal cannula. Afebrile. Hemodynamically stable. No new labs today. If she is continued on DuoNeb inhalations, Pulmicort and Perforomist inhalations, Solu- Medrol. Lovenox for DVT prophylaxis. Remains on oral diuretics. NicoDerm patch in place. Transitioned to Omnicef. Objective - Vital Signs Vital signs: Vital Signs Temp 98.6 F 03/24/23 13:56 Pulse 104 H 03/24/23 13:56 Resp 22 03/24/23 13:56 BP 107/70 03/24/23 13:56 Pulse Ox 93 L 03/24/23 13:56 FiO2 Intake & Output 03/23/23 03/24/23 03/24/23 18:59 06:59 18:59 Other: Voiding Method Toilet Toilet Toilet # Voids 3 - Exam GENERAL EXAM: Alert, 82-year-old female, on 2 L nasal cannula,up in a chair, comfortable in no apparent distress. HEAD: Normocephalic. EYES: Normal reaction of pupils, equal size. NOSE: Clear with pink turbinates. THROAT: No erythema or exudates. NECK: No masses, no JVD. CHEST: No chest wall deformity. LUNGS: Equal air entry with faint crackles in the posterior bases, end expiratory wheeze. CVS: S1 and S2 normal with no audible murmur, regular rhythm. ABDOMEN: No hepatosplenomegaly, normal bowel sounds, no guarding or rigidity. SPINE: No scoliosis or deformity SKIN: No rashes CENTRAL NERVOUS SYSTEM: No focal deficits, tone is normal in all 4 extremities. EXTREMITIES: There is no peripheral edema. No clubbing, no cyanosis. Peripheral pulses are intact. - Labs CBC & Chem 7: 03/20/23 16:44 03/21/23 10:52 Assessment and Plan Assessment: Acute on chronic hypoxemic respiratory failure secondary to acute exacerbation of COPD and fluid volume overload History of oxygen dependent chronic obstructive pulmonary disease History of lung cancer with previous chemotherapy, radiation and subsequent immunotherapy Chronic tobacco dependence Plan: The patient was seen and evaluated Medications reviewed Transitioned to oral antibiotics Transitioned to oral steroids Again educated regarding smoking cessation NicoDerm patch in place Probable discharge in the a.m. This patient was seen independently by the pulmonary nurse practitioner addressing pulmonary issues I have personally seen and examined the patient, performed the documentation and the assessment and plan as written. Number of minutes spent on the visit: 23.
[2023-03-24] MEDS: SENNOSIDES-DOCUSATE SODIUM 1 EACH TAB PO SCH (20:58)
[2023-03-24] MEDS: CEFDINIR 300 MG CAP PO SCH (20:58)
[2023-03-25 07:10] LABS: African American GFR (CKD) 42 (>60 ml/min/1.73 sqM); Anion Gap 10 mmol/L; Blood Urea Nitrogen 46 mg/dL (7-17); Calcium 9.6 mg/dL (8.4-10.2); Carbon Dioxide 31 mmol/L (22-30); Chloride 93 mmol/L (98-107); Glucose 80 mg/dL (74-99); Non-African American GFR(CKD) 37 (>60 ml/min/1.73 sqM); Potassium 4.6 mmol/L (3.5-5.1); Sodium 134 mmol/L (137-145)
[2023-03-25] MEDS: PANTOPRAZOLE 40 MG TABLET PO SCH (07:19)
[2023-03-25] MEDS ORDERED: predniSONE 10 MG TAB PO SCH (09:00)
[2023-03-25] MEDS: FUROSEMIDE 20 MG TAB PO SCH (09:04)
[2023-03-25] MEDS: CALCIUM CARB-VIT D 500 MG-5 MCG TAB PO SCH (09:04)
[2023-03-25] MEDS: CHOLECALCIFEROL 25 MCG (1000 IU) TABLET PO SCH (09:04)
[2023-03-25] MEDS: PSYLLIUM HUSK 100% 6 GM PACKET PO SCH (09:04)
[2023-03-25] MEDS: guaiFENesin 600 MG TABLET.ER PO SCH ×2 (09:04→12:23)
[2023-03-25] MEDS: LORATADINE 10 MG TAB PO SCH (09:04)
[2023-03-25] MEDS: CEFDINIR 300 MG CAP PO SCH (09:05)
[2023-03-25] MEDS: IPRATROPIUM-ALBUTEROL 3 ML NEB INHALATION SCH ×2 (09:06→12:06)
[2023-03-25] MEDS: NICOTINE 21MG/24HR PATCH TRANSDERM SCH (09:07)
[2023-03-25] MEDS: ENOXAPARIN 40 MG/0.4 ML SYRINGE SQ SCH (09:07)
[2023-03-25] MEDS: FORMOTEROL FUMARATE 20 MCG/2 ML NEBU INHALATION SCH (09:07)
[2023-03-25] MEDS: BUDESONIDE 1 MG/2 ML NEBU INHALATION SCH (09:07)
[2023-03-25 09:31] VITALS: BP 102/67; RESP 19; TEMP 98
[2023-03-25] MEDS: CYANOCOBALAMIN 500 MCG TAB PO SCH (12:23)
[2023-03-25] MEDS: MULTIVITAMINS, THERA 1 EACH TAB PO SCH (12:23)
[2023-03-25 12:39] VITALS: PULSE 98
--- NOTE | 2023-03-25 12:48 | P.DS ---
Providers Date of admission: 03/20/23 13:14 Expected date of discharge: 03/25/23 Attending physician: Lex Muller Consults: 03/20/23 13:13 Consult Physician Routine Consulting Provider: Florin Montoya Consult Reason/Comments: COPD Do you want consulting provider notified?: Yes Primary care physician: [facility] Course: Chief Complaint: Short of breath This is a pleasant 82-year-old patient who follows with Dr. Aleman. Chronic stable medical conditions include hypertension, hyperlipidemia, osteoarthritis, hiatal hernia, lung cancer was treated with chemotherapy and radiation treatment.-Has been for 2 years ago has been cancer free. Does follow with Dr. Neal. Patient long-standing smoker. Presents with progressive worsening short of breath. Some wheezing. Some cough. Not able to expectorate. Had a fever about 5 days ago. Appetite is fair. Chronic leg bilateral edema that goes up in the morning. . Patient at home use a half liters of oxygen. A bit tired and rundown. 03/21/2023: Sitting up in a recliner. Short of breath. Congested cough. Chest x-ray did show basilar infiltrate. We'll start IV cefepime. Tired. 03/22/2023: Congested cough. Short of breath. Sitting edge of the bed. Oral intake fair. Tired 03/23/2023: Short of breath. Decreased congested cough. Wheezing. Eating fair. Slow to respond. Patient has seen Dr. Nathaniel Santiago in 2022.. Was told has no CHF. 2-D echo showing normal LV function. 03/24/2023: Some shortness of breath and wheezing. No fever. Change IV cefepime over to Omnicef. Otherwise steroids bronchodilators continue. Discussed with the patient. Follow with pulmonary. Patient previously had a left nephrectomy for localized cancer. 03/25/2023: Patient's creatinine is up to 1.35. I discussed with the patient. Stop the Lasix. His started by Dr. Solomon. Patient does not want any more IV fluids. We'll have the patient repeat BMP on Thursday. She'll follow-up with the family doctor. She has been cleared by pulmonary for discharge. Seen by Dr. montoya. He'll follow-up in the office. Questions answered. Very slight yellow sputum. Discussion and discharge planning more than 35 minutes Social history: Smoking a pack and half for close to 67 years. Was drinking 4-5 beers a day previously. Lives alone. Home walks into half liters. Physical examination: VITAL SIGNS: 98, 100, 19, 1 or 2 x 67, 93% on 3 L GENERAL: Up in a chair, breathing better EYES: Pupils equal. Conjunctiva normal. HEENT: External appearance of nose and ears normal, oral cavity grossly normal. NECK: JVD not raised; masses not palpable. HEART: First and second heart sounds are normal; no edema. LUNGS: Respiratory rate increased, diminished breath sounds, air entry better ABDOMEN: Soft, nontender, liver spleen not palpable, no masses palpable. PSYCH: Alert and oriented x3; mood and affect a bit anxiousl. MUSCULOSKELETAL:No Clubbing/cyanosis;muscles-grossly intact. OA INVESTIGATIONS, reviewed in the clinical context: 03/25/2023: Potassium 4.6 BUN 46 creatinine 1.35 2-D echocardiogram: Normal LV function. Moderate right ventricle right atrium dilatation. Procalcitonin 0.11 03/20/2023: White count 10.6 hemoglobin 11.5 sodium 134 potassium 5.2 creatinine 0.81 proBNP 1280 Chest x-ray film personally reviewed by me-basilar infiltrates Assessment and plan: -Acute severe COPD exacerbation in a current smoker along with pneumonia: Better DuoNeb 4 times a day. IV Solu-Medrol. Nebulized Pulmicort. Nebulized Perforomist. Mucinex Discharge on prednisone taper, DuoNeb. Symbicort to continue. Follow-up with Dr. Mitchell in the office. -Basilar pneumonia suspect gram-negative organism: Much improved IV cefepime IV and changed to Omnicef. Complete 3 more days of Omnicef. -Acute hypoxic respiratory failure from COPD exacerbation Supplement oxygen -Acute kidney injury, prerenal from Lasix. Lasix discontinued. Patient encourage oral fluid. Repeat labs in 5 days. Prescription given. 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 -GERD Omeprazole Disposition: Home Labs: BMP in 5 days Past Medical History Past Medical History: Cancer, COPD, Deep Vein Thrombosis (DVT), Hyperlipidemia, Hypertension, Osteoarthritis (OA) Additional Past Medical History / Comment(s): hiatal hernia, constipation, kidney cancer, lung cancer(tx with radiation), hx skin cancer History of Any Multi-Drug Resistant Organisms: None Reported Past Surgical History: Cholecystectomy, Hernia Repair, Hysterectomy, Orthopedic Surgery Additional Past Surgical History / Comment(s): left knee surgery for torn ligament, ovarian cyst removed; bilat. big toenails removed, left nephrectomy, christy cataracts Past Anesthesia/Blood Transfusion Reactions: No Reported Reaction Past Psychological History: Anxiety Smoking Status: Current every day smoker Plan - Discharge Summary Discharge Rx Participant: No New Discharge Prescriptions: New guaiFENesin [Mucinex] 600 mg PO TID #30 tab Ipratropium-Albuterol Nebulize [Duoneb 0.5 mg-3 mg/3 ml Soln] 3 ml INHALATION TID #90 each Nicotine 21Mg/24Hr Patch [Habitrol] 1 patch TRANSDERM DAILY #14 patch Cefdinir [Omnicef] 300 mg PO DAILY #3 cap predniSONE 10 mg PO DAILY #30 tab Continue Cholecalciferol (Vitamin D3) [Vitamin D3] 50 mcg PO DAILY Cetirizine HCl [Zyrtec] 10 mg PO DAILY Magnesium 250 mg PO DAILY Budesonide/Formoterol Fumarate [Symbicort 160-4.5 Mcg Inhaler] 2 puff INHALATION RT-BID Albuterol Inhaler [Ventolin Hfa Inhaler] 2 puff INHALATION RT-QID PRN PRN Reason: Shortness Of Breath Acetaminophen Tab [Tylenol] 1,000 mg PO Q6H PRN PRN Reason: Pain Or Fever > 100.5 Calcium Carbonate/Vitamin D3 [Calcium 600 mg-D3 10 Mcg (400 Iu)] 1 cap PO DAILY Fluticasone Nasal Leo [Flonase Nasal Leo] 1 spr EA NOSTRIL DAILY Multivit-Min/FA/Lycopen/Lutein [Centrum Silver Tablet] 1 tab PO DAILY Cyanocobalamin [Vitamin B-12] 500 mcg PO DAILY Omeprazole 40 mg PO DAILY polyethylene glycoL 3350 [Miralax] 17 gm PO DAILY PRN PRN Reason: Constipation Sennosides/Docusate Sodium [Senna Plus 8.6-50 mg Tablet] 1 tab PO HS Montelukast [Singulair] 10 mg PO DAILY PRN PRN Reason: Allergy Symptoms Albuterol Nebulized [Ventolin Nebulized] 2.5 mg INHALATION RT-QID PRN PRN Reason: Shortness Of Breath Discharge Medication List Cholecalciferol (Vitamin D3) [Vitamin D3] 50 mcg PO DAILY 05/04/17 [History] Cetirizine HCl [Zyrtec] 10 mg PO DAILY 01/03/20 [History] Magnesium 250 mg PO DAILY 01/03/20 [History] Acetaminophen Tab [Tylenol] 1,000 mg PO Q6H PRN 11/04/20 [History] Albuterol Inhaler [Ventolin Hfa Inhaler] 2 puff INHALATION RT-QID PRN 11/04/20 [History] Budesonide/Formoterol Fumarate [Symbicort 160-4.5 Mcg Inhaler] 2 puff INHALATION RT-BID 11/04/20 [History] Cyanocobalamin [Vitamin B-12] 500 mcg PO DAILY 11/04/20 [History] Albuterol Nebulized [Ventolin Nebulized] 2.5 mg INHALATION RT-QID PRN 03/20/23 [History] Calcium Carbonate/Vitamin D3 [Calcium 600 mg-D3 10 Mcg (400 Iu)] 1 cap PO DAILY 03/20/23 [History] Fluticasone Nasal Leo [Flonase Nasal Leo] 1 spr EA NOSTRIL DAILY 03/20/23 [History] Montelukast [Singulair] 10 mg PO DAILY PRN 03/20/23 [History] Multivit-Min/FA/Lycopen/Lutein [Centrum Silver Tablet] 1 tab PO DAILY 03/20/23 [History] Omeprazole 40 mg PO DAILY 03/20/23 [History] Sennosides/Docusate Sodium [Senna Plus 8.6-50 mg Tablet] 1 tab PO HS 03/20/23 [History] polyethylene glycoL 3350 [Miralax] 17 gm PO DAILY PRN 03/20/23 [History] Cefdinir [Omnicef] 300 mg PO DAILY #3 cap 03/25/23 [Rx] Ipratropium-Albuterol Nebulize [Duoneb 0.5 mg-3 mg/3 ml Soln] 3 ml INHALATION TID #90 each 03/25/23 [Rx] Nicotine 21Mg/24Hr Patch [Habitrol] 1 patch TRANSDERM DAILY #14 patch 03/25/23 [Rx] guaiFENesin [Mucinex] 600 mg PO TID #30 tab 03/25/23 [Rx] predniSONE 10 mg PO DAILY #30 tab 03/25/23 [Rx] Follow up Appointment(s)/Referral(s): [facility] [NON-STAFF] - As Needed Sathish Alemna MD [Primary Care Provider] - 1-2 days (office not answering Please call to schedule appointment) Florin Montoya DO [Doctor of Osteopathic Medicine] - 1 Week (unable to make phone call ) Activity/Diet/Wound Care/Special Instructions: bmp = 03/30/23
--- NOTE | 2023-03-25 15:06 | P.PN ---
Subjective Progress Note Date: 03/25/23 Principal diagnosis: COPD exacerbation. This is a pleasant 82-year-old female patient with a history of lung cancer approximately 3 years ago and was treated with chemotherapy and radiation therapy. She had also been on immunotherapy for approximate 5 months. She has chronic and ongoing tobacco dependence. She was transferred here from [facility] yesterday for a COPD exacerbation. She was having increasing oxygen requirements. She has home oxygen usually at 2-2-1/2 L and required 4 L to maintain O2 saturations in the 90s. Chest x-ray revealed cardiomegaly with some pulmonary vascular congestion and bilateral pleural effusions. White count 10.6. Hemoglobin 11.5. Platelets 316. Sodium 135. Potassium 4.9. Bicarb 22. BUN 29. Creatinine 0.91 glucose 257. ProBNP 1280. She is seen today in consultation on the regular medical floor. She is currently sitting up in bed. Awake and alert in no acute distress. Currently maintaining O2 saturations in the 90s on 4 L/m per nasal cannula. She's afebrile. Hemodynamically stable. The patient is seen today 03/22/2023 in follow-up on the regular medical floor. She is awake and alert in no acute distress. She is doing better today compared to yesterday. Still some bronchospasm and wheezing. Occasional cough. Maintaining O2 saturation in the 90s on 3 L/m per nasal cannula. Pro-calcitonin was 0.11. She is continued on DuoNeb inhalations, Pulmicort and Perforomist inhalations, Solu-Medrol, Singulair. Remains on oral diuretics. Remains on Mucinex. Lovenox for DVT prophylaxis. Antibiotics in the form of cefepime. NicoDerm patch in place. Progress note dated 03/23/2023. The patient is seen today in room 472. The patient is currently on 3 L of oxygen. She is receiving cefepime. Her pro-calcitonin level is mildly elevated at 0.11. Her BNP is elevated, and she may have morbid CHF pattern than actual pneumonia. She appears relatively comfortable. She continues on doing nebs, Pulmicort, performance, Solu-Medrol, etc. She also remains on diuretics. The patient feels a bit better today than she did yesterday. She sitting on the bed, in no distress. No new labs today. Progress note dated 03/25/2023. The patient is seen today in room 472. Currently, the patient is on 3 L of oxygen. She's not receiving any IV fluids. Lasix was discontinued by the primary service. The patient is currently being evaluated for possible discharge. She will follow me in the office. She has no new complaints today. She states that her breathing is premature at baseline. I'm concerned that the patient will start smoking again. She does have a history of suspected lung cancer, status post stereotactic body radiotherapy (SBRT). Her medications are appropriate, and include albuterol, ipratropium bromide, budesonide, formoterol, and corticosteroids. Objective - Vital Signs Vital signs: Vital Signs Temp 98.0 F 03/25/23 08:50 Pulse 98 03/25/23 12:16 Resp 19 03/25/23 08:50 BP 102/67 03/25/23 08:50 Pulse Ox 92 L 03/25/23 09:09 FiO2 Intake & Output 03/24/23 03/25/23 03/25/23 18:59 06:59 18:59 Other: Voiding Method Toilet Toilet Toilet # Voids 8 2 # Bowel Movements 3 - Exam No acute distress, oriented 3. Currently, the patient's on 3 L. No respiratory distress. HEENT examination is grossly unremarkable. Mucous membranes are moist. No oral lesions. Neck supple. Full range of motion. No adenopathy thyromegaly or neck vein distention. Cardiovascular examination reveals regular rhythm rate. S1-S2 normal. No S3 or S4. No discernible murmur noted. Heart rate is 82 bpm. Lungs reveal bibasilar crackles. Breath sounds equal bilaterally. No wheezes or rhonchi. Saturations are 96 % on 3 L. Abdomen soft bowel sounds are heard. No masses or tenderness. Extremities are intact. No cyanosis clubbing or edema. Skin is without rash or lesion. Neurologic examination is brief but nonfocal. - Labs CBC & Chem 7: 03/20/23 16:44 03/25/23 06:35 Labs: Abnormal Lab Results - Last 24 Hours (Table) 03/25/23 03/25/23 Range/Units 06:35 06:35 Sodium 134 L (137-145) mmol/L Chloride 93 L (98-107) mmol/L Carbon Dioxide 31 H (22-30) mmol/L BUN 46 H (7-17) mg/dL Creatinine 1.35 H (0.52-1.04) mg/dL Procalcitonin 0.11 H (0.02-0.09) ng/mL Assessment and Plan Assessment: Acute on chronic hypoxemic respiratory failure secondary to acute exacerbation of COPD and fluid volume overload/CHF. History of oxygen dependent chronic obstructive pulmonary disease. History of lung cancer with previous chemotherapy, radiation and subsequent immunotherapy. Chronic tobacco dependence. Plan: Plan dated 03/23/2023. The patient is seen today in room 472. She continues on oxygen at 3 L. Labs, x-rays, and medications are reviewed. The patient continues on appropriate medications including antibiotics, breathing treatments, and Solu-Medrol. She also continues on formoterol, and budesonide. We will continue to follow, make recommendations along the way. Prognosis is guarded. The patient is counseled about the importance of smoking cessation. Plan dated 03/25/2023. The patient is seen today in room 472. The patient's Lasix was discontinued by the primary service. The patient continues on 3 L of oxygen. The site Medrol can be converted to prednisone. The patient is counseled about the importance of smoking cessation. The patient will see me in the office, sometime after discharge. Labs, x-rays, and medications are reviewed. The patient's overall prognosis remains very guarded. Time with Patient: Less than 30
[2023-03-26] MEDS ORDERED: CEFDINIR 300 MG CAP PO SCH (09:00)
[2023-03-26] MEDS ORDERED: ENOXAPARIN 30 MG/0.3 ML SYRINGE SQ SCH (09:00)
== END 2023-03-25 13:36 | disposition home health service (06) | DRG 190 ==
LOC: EC 11:53 → 4SSUR 13:14
PROVIDERS: ADMIT Hospitalist; ATTEND Hospitalist
DX: J44.1 Chronic obstructive pulmonary disease with (acute) exacerbation (principal); J15.69 Pneumonia due to other Gram-negative bacteria; J96.21 Acute and chronic respiratory failure with hypoxia; J44.0 Chronic obstructive pulmonary disease with (acute) lower respiratory infection; J20.9 Acute bronchitis, unspecified; E78.5 Hyperlipidemia, unspecified; F17.210 Nicotine dependence, cigarettes, uncomplicated; F41.9 Anxiety disorder, unspecified; I08.3 Combined rheumatic disorders of mitral, aortic and tricuspid valves; I11.0 Hypertensive heart disease with heart failure; I50.9 Heart failure, unspecified; K44.9 Diaphragmatic hernia without obstruction or gangrene; M19.90 Unspecified osteoarthritis, unspecified site; Z79.51 Long term (current) use of inhaled steroids; Z79.899 Other long term (current) drug therapy; Z85.528 Personal history of other malignant neoplasm of kidney; Z85.118 Personal history of other malignant neoplasm of bronchus and lung; Z90.5 Acquired absence of kidney; Z85.828 Personal history of other malignant neoplasm of skin; Z90.710 Acquired absence of both cervix and uterus; K21.9 Gastro-esophageal reflux disease without esophagitis; Z92.21 Personal history of antineoplastic chemotherapy; Z92.3 Personal history of irradiation; Z99.81 Dependence on supplemental oxygen; Z98.42 Cataract extraction status, left eye; Z98.41 Cataract extraction status, right eye; Z88.0 Allergy status to penicillin; Z91.048 Other nonmedicinal substance allergy status; Z88.1 Allergy status to other antibiotic agents
CPT/HCPCS: 71046; 80048; 80053; 83880; 84145; 85025; 93306; 94640; 94760; 96374; 99285